=== PATIENT | female | born 1940 | race Caucasian/White ===

== ENCOUNTER → 2016-06-23 | Outpatient (REF) | payer MEDICARE, OTHER ==
[~2016-06-23] MED LIST: BENA20TA2 PO; DIFL200T PO; HYDR25TAB PO; INSUDET SC; INSUH10VL SC; MACR100C3 PO; METF500T PO; PRED10PA PO; PROP60TA14 PO
[2016-06-23 13:48] LABS: YEAST LIKE CELL URINE AUTO MODERATE
== END ==
LOC: M SMT 13:10
PROVIDERS: ATTEND Nurse Practitioner Women's Health
DX: R32 Unspecified urinary incontinence (principal)
CPT/HCPCS: 51702; 51798; 81001; 87086; G0463

== ENCOUNTER → 2016-06-29 | Outpatient (CLI) | payer MEDICARE, OTHER ==
[2016-06-29 14:04] LABS: CALCIUM LEVEL 9.5 MG/DL (8.8-10.2); CREATININE FOR GFR 1.32 MG/DL (0.55-1.02); GLOMERULAR FILTRATION RATE 41.5 (>39); POTASSIUM SERUM 4.2 MEQ/L (3.5-5.1)
== END ==
LOC: M LAB 12:53
PROVIDERS: ATTEND Nurse Practitioner Women's Health
DX: R31.29 Other microscopic hematuria (principal)
CPT/HCPCS: 36415; 80048; G0463

== ENCOUNTER → 2016-07-01 | Outpatient (CLI) | payer MEDICARE, OTHER ==
[~2016-07-01] MED LIST changes: +ISOVUE-370 76% 100ML VIAL (Q9967) As Ordered ONE
--- NOTE | 2016-07-01 09:34 | REP ---
CT study of the abdomen without IV or oral contrast: History: Microscopic hematuria. Comparison CT study December 29, 2013. Technique: The patient declined intravenous contrast. CT findings: Digital preliminary toll gate tender radiograph demonstrates a dextroconvex scoliotic curve in the lumbar spine. Bowel gas pattern is normal. The lung bases show minimal fibrotic changes but are essentially clear. No pleural effusion is seen. There is mild to moderate diffuse fatty infiltration of the liver. There is a small sliding-type hiatal hernia. Spleen is unremarkable. There are two fairly large descending and ascending duodenal diverticula which appear to be unchanged from the prior study. There is no evidence of intrarenal calculus, mass or hydronephrosis. There are phleboliths in the right gonadal vein unchanged. No bladder calculus or mass is seen. A vaginal pessary is noted in place. There is extensive diverticulosis of the sigmoid colon without CT evidence of diverticulitis. A normal appendix is seen. No uterine abnormality is seen. There is a 3.8 cm cyst in the right ovary. No abdominal wall defect is seen. No bony destructive lesion is appreciated. Impression: 1. No urinary tract calculus, hydronephrosis or mass is seen. 2. 3.8 cm cystic area right ovary. This is unchanged from the 2014 prior study. 3. Colonic and duodenal diverticulosis. 4. Fatty infiltration of the liver. 5. Small hiatal hernia. Signed by Gilbert Ngo MD 07/01/2016 10:24 A
== END ==
LOC: M RAD 08:00
PROVIDERS: ATTEND Nurse Practitioner Women's Health
DX: R31.29 Other microscopic hematuria (principal); K57.30 Diverticulosis of large intestine without perforation or abscess without bleeding; K57.10 Diverticulosis of small intestine without perforation or abscess without bleeding

== ENCOUNTER → 2016-07-22 | Outpatient (REF) | payer MEDICARE, OTHER ==
[~2016-07-22] MED LIST changes: +HYDR12.55 PO; +INDE1CAP5 PO; +INSUHUMDS SC; -ISOVUE-370 76% 100ML VIAL (Q9967) As Ordered ONE
[2016-07-22 13:26] LABS: YEAST LIKE CELL URINE AUTO LARGE
== END ==
LOC: M SMT 12:58
PROVIDERS: ATTEND Urology
DX: R31.29 Other microscopic hematuria (principal)

== ENCOUNTER → 2016-08-08 | Outpatient (CLI) | payer MEDICARE, OTHER ==
--- NOTE | 2016-08-08 09:26 | REP ---
Clinical: Hematuria. Technique: PA and lateral. Comparison: 07/07/2015. Findings: Mediastinum and cardiac silhouette are stable. Lung marin demonstrate chronic stable changes and subtle superimposed atelectasis cannot be excluded. No focal consolidation, effusion or pneumothorax. Skeletal structures demonstrate levoconvex scoliosis, osteopenia and degenerative change. Impression: Chronic-appearing stable changes. Cannot exclude trace basilar atelectasis. Signed by Chadwick Bowman MD 08/08/2016 09:17 A
[2016-08-08 19:08] LABS: CALCIUM LEVEL 9.2 MG/DL (8.8-10.2); CREATININE FOR GFR 1.13 MG/DL (0.55-1.02); GLOMERULAR FILTRATION RATE 49.7 (>39); POTASSIUM SERUM 4.4 MEQ/L (3.5-5.1)
[2016-08-08 19:14] LABS: INR 1.03
[2016-08-08 19:41] LABS: MEAN CORPUSCULAR HEMOGLOBIN 31.2 pg (27.0-33.0); MEAN CORPUSCULAR VOLUME 97.5 fl (80.0-96.0); WHITE BLOOD COUNT 9.9 K/mm3 (4.0-10.0)
[2016-08-08 20:08] LABS: CALCIUM OXALATE CRYSTALS LARGE; YEAST LIKE CELL URINE AUTO LARGE
== END ==
LOC: M SMT 08:44
PROVIDERS: ATTEND Urology
DX: R31.29 Other microscopic hematuria (principal)

== ENCOUNTER → 2016-08-11 | Outpatient (CLI) | payer MEDICARE, OTHER ==
--- NOTE | 2016-08-17 02:34 | ECWPNPC ---
PATIENT NAME: JOSEPH VOGEL : 1940 GENDER: FEMALE VISIT DATE: 08/11/2016 DISCHARGE DATE: 08/11/16925 VISIT LOCKED DATE TIME: PHYSICIAN: MICHEL RIOS RESOURCE: MICHEL RIOS REASON FOR APPOINTMENT 1. BACK PAIN HISTORY OF PRESENT ILLNESS HISTORY OF PRESENT ILLNESS: PAIN THE PATIENT DESCRIBES THE PAIN... 76 YEAR OLD FEMALE PATIENT WITH HISTORY OF CHRONIC BACK PAIN. PATIENT DESCRIBES THE PAIN ACHING, TENDER, AND THROBBING WITH A PAIN SCORE OF 4-5/10. PATIENT STATES SHE IS HAVING A PROCEDURE TO DETERMINE IF SHE HAS BLADDER CANCER AND IS NOT COMFORTABLE HAVING AN INJECTION AT THIS TIME. PATIENT IS CURRENTLY USING PERCOCET AND TYLENOL FOR PAIN MANAGEMENT AND REPORTS THE MEDICATION HELPING. SITTING, WALKING, WALKING, AND BENDING OVER INCREASES THE PAIN THE MOST IN THE PATIENT'S LOWER BACK AND RESTING, MEDICATION, AND INTERVENTIONS HELP TO MAKE THE PAIN MORE MANAGEABLE. PATIENT DENIES UNEXPLAINABLE WEIGHT LOSS, FEVER, CHILLS, NEW CHANGES ON HER URINARY OR BOWEL CONTROL. FALL RISK SCREENING: SCREENING :NO FALLS IN THE PAST YEAR CURRENT MEDICATIONS TAKING PROPRANOLOL HCL 10 MG TABLET 2 TABLET ORALLY TWICE A DAY, NOTES: 08-10-16 2100 TAKING METFORMIN HCL 500 MG TABLET EXTENDED RELEASE 24 HOUR 1 TAB ORALLY 3 TIMES A DAY, NOTES: 08-10-16 1200 TAKING HYDROCHLOROTHIAZIDE 25 25 MG TABLET 1 TAB(S) ORAL DAILY, NOTES: 08-10-16 0800 TAKING BENAZEPRIL HCL 20 MG TABLET 1 TAB(S) ORALLY DAILY, NOTES: 08-10-16 0800 TAKING LEVEMIR 52 SOLUTION 60 UNITS UNITS/SUBCUTANEOUS ONCE DAILY, NOTES: 08-10-16 08 TAKING HUMALOG SLIDING SCALE SOLUTION DIRECTED SUBCUTANEOUS , NOTES: 08-10-16 1400 TAKING TYLENOL 325 MG TABLET 2 TABLET NEEDED ORALLY EVERY 6 HRS, NOTES: NONE TAKING PREDNISONE 10 MG TABLET 1 TAB(S) ORALLY DAILY, NOTES: 08-10-16 0800 TAKING ASPIR-81 81 MG TABLET DELAYED RELEASE 1 TABLET ORALLY ONCE A DAY, NOTES: NONE 2 WEEKS TAKING BENTYL 10 MG CAPSULE ORALLY PRN, NOTES: COUPLE DAYS AGO NOT-TAKING OXYBUTYNIN CHLORIDE 5 MG TABLET 1 TABLET ORALLY TWICE A DAY DISCONTINUED DIFLUCAN 150 MG TABLET 1 TABLET ORALLY DISCONTINUED KEFLEX 750 MG CAPSULE 1 CAPSULE ORALLY DIRECTED- 1 HOUR PRIOR TO CYSTOSCOPY DISCONTINUED LIDOCAINE HCL JELLY SNF 2 % JELLY 5 ML1 APPLICATION TO AFFECTED AREA NEEDED INTRAVESICALLY TIME AT CYSTOSCOPY DISCONTINUED BACTRIM DS 800-160 TABLET 1 TABLET ORALLY TWICE A DAY DISCONTINUED DOXYCYCLINE HYCLATE 100 MG CAPSULE 1 CAPSULE ORALLY EVERY 12 HRS MEDICATION LIST REVIEWED AND RECONCILED WITH THE PATIENT PAST MEDICAL HISTORY HYPERTENSION ARTHRITIS ULCERATIVE COLITIS 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 CATARACTS ABNORMAL EKG SEEN WEB DESIGN INTERN NO SIGN OF MO DVT LOWER LEFT LEG POP USING A GELHORN # 3 SEVERE ARTHRITIS BULGING DISCS OF THE SPINE PSORIASIS ALLERGIES PENICILLIN (FOR ALLERGIES USE ONLY): ANAPHYLAXIS: ALLERGY SULFA (FOR ALLERGY USE ONLY): HIVES: ALLERGY CIPRO: SWELLING OF MOUTH: ALLERGY NUBAIN: VOMITING: ALLERGY SURGICAL HISTORY FABIOLA. CATARACT SURGERY 07/2015 FAMILY HISTORY FATHER: HEART DISEASE MOTHER: HEART DISEASE SON(S): MO AGE 41 NO KNOWN FAMILY HISTORY OF ANY UROLOGICALLY RELATED DISEASES/CANCERS. SOCIAL HISTORY GENERAL: TOBACCO USE ARE YOU A: NONSMOKER . ALCOHOL SCREENING DID YOU HAVE A DRINK CONTAINING ALCOHOL IN THE PAST YEAR?NO POINTS0 INTERPRETATIONNEGATIVE RECREATIONAL DRUG USE DRUG USE? NO. CAFFEINE CAFFEINE USE? NO . SEXUAL HX HAD SEX IN THE LAST 12 MONTHS (VAGINAL, ORAL, OR ANAL)?NO HAVE YOU EVER HAD AN STD?NO OCCUPATION: RETIRED. DIET: REGULAR. EXERCISE: NO REGULAR EXERCISE. LEARNING BARRIERS / SPECIAL NEEDS ABILITY TO UNDERSTAND VERBAL INSTRUCTIONS GOOD, ABILITY TO UNDERSTAND WRITTEN INSTRUCTIONS GOOD, KNOWLEDGE OF EDUCATIONAL NEEDS/TREATMENT PLAN GOOD. PSYCHOLOGICAL HX TREATMENT NO . PAIN CLINIC PFS, CLERGY, PUBLIC HEALTH REFERRALS PFS REFERRAL NEEDED?NO CLERGY REFERRAL NEEDED?NO PUBLIC HEALTH REFERRAL NEEDED?NO WAS THE PROVIDER NOTIFIED OF ANY PERTINENT INFO?NO PATIENT: ____. ADVANCED DIRECTIVES HEALTH CARE PROXY?NO POWER OF LOZENGE MAKER HELPER?NO HOSPITALIZATION/MAJOR DIAGNOSTIC PROCEDURE KIDNEY STONE AND SEPSIS 2013 REVIEW OF SYSTEMS CONSTITUTIONAL: ANY CHANGE IN YOUR MEDICAL CONDITION? YES . CHILLS NO . FEVER NO . INFECTION: DO YOU HAVE NEW INFECTIONS? NO . DO YOU HAVE HISTORY OF MRSA? NO . MUSCULOSKELETAL: ANY NEW PATTERNS OF PAIN OR NUMBNESS? NO . GASTROENTEROLOGY: ANY NEW CHANGE IN BOWEL CONTROL? NO . GENITOURINARY: ANY NEW CHANGE IN BLADDER CONTROL? NO . IS THERE A CHANCE YOU COULD BE ? NO . HEMATOLOGY/LYMPH: DO YOU TAKE ANY BLOOD THINNERS? (FOR EXAMPLE- COUMADIN, PLAVIX, AGGRENOX, PLATEL, PRADAXA, OR XARELTO) NO . WHEN WAS YOUR LAST DOSE? DATE: TIME: . NEUROLOGY: HAVE YOU FALLEN IN THE PAST 6 MONTHS? NO . ANY NEW EXTREMITY NUMBNESS OR WEAKNESS? NO . CARDIOLOGY: DO YOU HAVE A PACEMAKER OR DEFIBRILLATOR? NO . RESPIRATORY: HAVE YOU BEEN SICK IN THE PAST WEEK? NO . FEVER NO . FLU LIKE SYMPTOMS? NO . COUGH NO . INTEGUMENTARY: DO YOU HAVE ANY RASHES OR OPEN SORES? NO . ALLERGIC/IMMUNO: ARE YOU ALLERGIC TO SHELLFISH OR IV DYE? NO . ANY NEW ALLERGIES? NO . PSYCHIATRIC: DO YOU HAVE THOUGHTS OF HURTING YOURSELF OR SOMEONE ELSE? NO . ARE YOU ABUSED, NEGLECTED, OR IN AN UNSAFE ENVIRONMENT? NO . ENDOCRINOLOGY: ARE YOU DIABETIC? YES . OTHER: DO YOU NEED ANY PRESCRIPTIONS? NO . IF YES, PLEASE LIST: ____ . ANY NEW PROBLEMS WITH YOUR MEDICATIONS? NO . WHEN DID YOU LAST EAT? ____2030 08/04/16 . WHEN DID YOU LAST DRINK? ____08/11/15 . WHAT DID YOU LAST DRINK? ____WATER . NAME OF PERSON DRIVING YOU HOME? ____DONALD . DO YOU HAVE ANY OTHER QUESTIONS OR CONCERNS YES . REVIEWED BY: PROVIDER: MICHEL RIOS MD . VITAL SIGNS WT 141 LBS, HT 61 IN, BMI 26.64 INDEX, BP 169/88 MM HG, HR 78 /MIN, RR 16 /MIN, TEMP 97.3 F, OXYGEN SAT % 96, NA INITIALS TL 0858, REVIEWED BY: VD. EXAMINATION : PATIENT IS ALERT O X 3 AND COOPERATIVE. TENDERNESS IN THE LOWER BACK AND PARASPINAL MUSCLE GROUP. MRI DONE ON 10/20/15 SHOWS DISC BULGES FROM L2-L3 THROUGH L5-S1, CANAL STENOSIS, AND FACET HYPERTROPHY. ASSESSMENTS SPONDYLOSIS WITHOUT MYELOPATHY OR RADICULOPATHY, LUMBAR REGION - M47.816 (PRIMARY) SPONDYLOSIS WITHOUT MYELOPATHY OR RADICULOPATHY, LUMBOSACRAL REGION - M47.817 TREATMENT SPONDYLOSIS WITHOUT MYELOPATHY OR RADICULOPATHY, LUMBAR REGION NOTES: WE DISCUSSED SEVERAL ISSUES WITH MRS. VOGEL'S PAIN MANAGEMENT CASE. PATIENT WILL CONTINUE WITH THE SAME MEDICATION REGIME BEFORE. PATIENT DENIES ABUSE OF ANY MEDICATION, DENIES USE OF ILLEGAL SUBSTANCES, AND STATES THAT SHE IS ONLY USING THE MEDICATION FOR PAIN MANAGEMENT. WE WILL HOLD OFF ON INTERVENTIONS AT THIS TIME. PATIENT WILL RETURN TO THE CLINIC HER POST OPERATIVE APPOINTMENT TO SEE IF SHE IS WELL ENOUGH FOR INJECTIONS. INSTRUCTIONS WERE GIVEN, QUESTIONS WERE ANSWERED, PATIENT REPORTS UNDERSTANDING AND AGREES WITH THE PLAN. I, RASHID WALSH, DOCUMENTED THE ABOVE INFORMATION ACTING A SCRIBE FOR DR. RIOS. I HAVE REVIEWED THE ABOVE DOCUMENT, WRITTEN BY RASHID VILLANUEVA AND I VERIFY THAT IT IS ACCURATE. PROCEDURE CODES FA211 ESTABILISHED PATIENT [facility] FACILITY CHARGE G8427 DOC MEDS VERIFIED W/PT OR RE G8730 PAIN ASSESS POS TOOL F/U PLAN DOC DISPOSITION & COMMUNICATION FOLLOW UP 4 WEEKS ELECTRONICALLY SIGNED BY MICHEL RIOS MD ON 08/15/2016 AT 06:15 PM EDT DISCLAIMER : THIS IS A VISIT SUMMARY EXTRACTED FROM THE [employer] CHART. IT IS NOT A COPY OF THE [employer] PROGRESS NOTE. DENY
== END ==
LOC: M PAIN 08:40
PROVIDERS: ATTEND Anesthesiology
DX: Z09 Encounter for follow-up examination after completed treatment for conditions other than malignant neoplasm (principal); G89.29 Other chronic pain; M47.816 Spondylosis without myelopathy or radiculopathy, lumbar region; M47.817 Spondylosis without myelopathy or radiculopathy, lumbosacral region; I10 Essential (primary) hypertension; M19.90 Unspecified osteoarthritis, unspecified site; L40.9 Psoriasis, unspecified; E11.9 Type 2 diabetes mellitus without complications; R32 Unspecified urinary incontinence; Z79.899 Other long term (current) drug therapy; Z79.84 Long term (current) use of oral hypoglycemic drugs; Z79.4 Long term (current) use of insulin; Z79.82 Long term (current) use of aspirin; Z79.52 Long term (current) use of systemic steroids; Z88.0 Allergy status to penicillin; Z88.1 Allergy status to other antibiotic agents; Z88.2 Allergy status to sulfonamides; Z88.5 Allergy status to narcotic agent

== ENCOUNTER → 2016-08-24 | Day surgery (SDC) | payer MEDICARE, OTHER ==
[~2016-08-24] VITALS: Ht 154.9 cm; Wt 57.2 kg
[~2016-08-24] MED LIST changes: +CEPHALEXIN 500 MG CAP PO SCH; +GENTAMICIN 100 MG in APPROPRIATE DILUENT 1 EA IV ONE; +KEFL500C7 PO; +LIDOCAINE 2% 5ML JELLY UROJET As Ordered ONE; +LIDOCAINE 2% INJ 100 MG/5 ML SDV (FOR ANES.) As Ordered ONE; +LR 1,000 ML IV SCH; +MIDAZOLAM INJ 2 MG/2 ML VIAL (J2250) As Ordered ONE; +PROPOFOL 200 MG/20 ML VIAL As Ordered ONE; +ROCURONIUM BROMIDE 50 MG/5 ML VIAL As Ordered ONE; +TYLE650T35 PO; +VANCOMYCIN HCL 1,000 MG, VIAL MATE ADAPTER 1 EACH in D5W 250 ML IV ONE; +fentaNYL 100 MCG/2 ML INJECTION (J3010) As Ordered ONE; +traMADol 50 MG TAB As Ordered ONE; +traMADol 50 MG TAB PO PRN
[2016-08-24 10:00] VITALS: BP 131/67
--- NOTE | 2016-08-24 14:42 | RO ---
DATE OF PROCEDURE: 08/24/2016 PREPROCEDURE DIAGNOSIS: Bladder neoplasm. POSTPROCEDURE DIAGNOSIS: Flat lesions, multiple, in the bladder, possible bladder neoplasm. FINDINGS: Multiple flat lesions in the bladder. SURGERY PERFORMED: Cystoscopy, plus examination under anesthesia, plus random bladder biopsies, plus fulguration of bleeders. SURGEON: Ronald Peters MD DIRECTOR [place]: Ha Pena, PGY-3 resident ANESTHESIA: General. COMPLICATIONS: None. ESTIMATED BLOOD LOSS: N/A. HISTORY OF PRESENT ILLNESS: This is a 76-year-old female patient that has microscopic hematuria. We did a flexible cystoscopy that showed multiple erythematous flat lesions in the bladder. For this reason, she has consented for a cystoscopy, plus random bladder biopsies, plus examination under anesthesia. DESCRIPTION OF PROCEDURE: With the patient in general anesthesia in supine, modified low lithotomy position, after prepping and draping the area of concern, which included the entire genitalia and abdomen, we started by introducing the cystoscope, #21-Jordanian in diameter with a 30-degree lens under videoscopic guidance. The urethra and bladder neck were totally normal. The bladder had multiple erythematous flat lesions. Both ureteral orifices were excreting clear liquid. There were no foreign objects and no stones. We then proceeded to grab endoscopic forceps and did a random bladder biopsy at the dome, left lateral wall, right lateral wall, and posterior wall. We then proceeded to actually send this for permanent pathology analysis. We grabbed the endoscopic Bugbee and under sterile water we fulgurated each bladder biopsy site. We then proceeded to actually empty the bladder and introduce a Hdz catheter, #20-Jordanian, three-way, plugged the third way and inflated the balloon to 10 mL and placed it to gravity. PLAN: The patient will go home today with antibiotic, pain medication. Followup in about 4 to 5 days at [facility] for a voiding trial. DENY
== END | disposition home or self-care (01) ==
LOC: M SDC 05:53
PROVIDERS: ATTEND Urology
DX: N32.9 Bladder disorder, unspecified (principal); R31.29 Other microscopic hematuria; I10 Essential (primary) hypertension; E11.9 Type 2 diabetes mellitus without complications; I51.9 Heart disease, unspecified; R32 Unspecified urinary incontinence; Z87.828 Personal history of other (healed) physical injury and trauma; Z87.442 Personal history of urinary calculi; Z87.440 Personal history of urinary (tract) infections; Z88.1 Allergy status to other antibiotic agents; Z88.8 Allergy status to other drugs, medicaments and biological substances; Z88.0 Allergy status to penicillin; Z88.2 Allergy status to sulfonamides; Z79.899 Other long term (current) drug therapy; Z79.84 Long term (current) use of oral hypoglycemic drugs; Z79.4 Long term (current) use of insulin; Z79.52 Long term (current) use of systemic steroids
CPT/HCPCS: 36415; 52204; 86850; 86900; 86901; 88305; J1580; J2250; J3010; J3370

== ENCOUNTER → 2016-09-14 | Outpatient (CLI) | payer MEDICARE, OTHER ==
[~2016-09-14] MED LIST changes: -CEPHALEXIN 500 MG CAP PO SCH; -GENTAMICIN 100 MG in APPROPRIATE DILUENT 1 EA IV ONE; -LIDOCAINE 2% 5ML JELLY UROJET As Ordered ONE; -LIDOCAINE 2% INJ 100 MG/5 ML SDV (FOR ANES.) As Ordered ONE; -LR 1,000 ML IV SCH; -MIDAZOLAM INJ 2 MG/2 ML VIAL (J2250) As Ordered ONE; -PROPOFOL 200 MG/20 ML VIAL As Ordered ONE; -ROCURONIUM BROMIDE 50 MG/5 ML VIAL As Ordered ONE; -VANCOMYCIN HCL 1,000 MG, VIAL MATE ADAPTER 1 EACH in D5W 250 ML IV ONE; -fentaNYL 100 MCG/2 ML INJECTION (J3010) As Ordered ONE; -traMADol 50 MG TAB As Ordered ONE; -traMADol 50 MG TAB PO PRN
== END ==
LOC: M PAIN 14:40
PROVIDERS: ATTEND Anesthesiology
DX: Z53.29 Procedure and treatment not carried out because of patient's decision for other reasons (principal)

== ENCOUNTER → 2016-09-20 | Outpatient (REF) | payer MEDICARE, OTHER | LOC: M SMT 12:47 | PROVIDERS: ATTEND Urology | DX: R30.0 Dysuria (principal); R31.29 Other microscopic hematuria; N81.9 Female genital prolapse, unspecified | CPT/HCPCS: 87086; G0463 ==

== ENCOUNTER → 2016-09-21 | Outpatient (CLI) | payer MEDICARE, OTHER ==
--- NOTE | 2016-10-02 23:36 | ECWPNPC ---
PATIENT NAME: JOSEPH VOGEL : 1940 GENDER: FEMALE VISIT DATE: 09/21/2016 DISCHARGE DATE: 09/21/16 1004 VISIT LOCKED DATE TIME: PHYSICIAN: MICHEL RIOS RESOURCE: MICHEL RIOS REASON FOR APPOINTMENT 1. LOW BACK PAIN HISTORY OF PRESENT ILLNESS HISTORY OF PRESENT ILLNESS: PAIN THE PATIENT DESCRIBES THE PAIN... 76 YEAR OLD FEMALE PATIENT WITH HISTORY OF CHRONIC BACK PAIN. PATIENT DESCRIBES THE PAIN ACHING, TENDER, AND THROBBING WITH A PAIN SCORE OF 4-5/10. PATIENT STATES THAT SHE IS ABLE TO MOVE FORWARD WITH INJECTIONS AT THIS TIME. PATIENT IS CURRENTLY USING PERCOCET AND TYLENOL FOR PAIN MANAGEMENT AND REPORTS THE MEDICATION HELPING. SITTING, WALKING, WALKING, AND BENDING OVER INCREASES THE PAIN THE MOST IN THE PATIENT'S LOWER BACK AND RESTING, MEDICATION, AND INTERVENTIONS HELP TO MAKE THE PAIN MORE MANAGEABLE. PATIENT DENIES UNEXPLAINABLE WEIGHT LOSS, FEVER, CHILLS, NEW CHANGES ON HER URINARY OR BOWEL CONTROL. FALL RISK SCREENING: SCREENING :NO FALLS IN THE PAST YEAR CURRENT MEDICATIONS TAKING PROPRANOLOL HCL 10 MG TABLET 2 TABLET ORALLY TWICE A DAY TAKING METFORMIN HCL 500 MG TABLET EXTENDED RELEASE 24 HOUR 1 TAB ORALLY 3 TIMES A DAY TAKING HYDROCHLOROTHIAZIDE 25 25 MG TABLET 1 TAB(S) ORAL DAILY TAKING BENAZEPRIL HCL 20 MG TABLET 1 TAB(S) ORALLY DAILY TAKING LEVEMIR 52 SOLUTION 60 UNITS UNITS/SUBCUTANEOUS ONCE DAILY TAKING HUMALOG SLIDING SCALE SOLUTION DIRECTED SUBCUTANEOUS TAKING TYLENOL 325 MG TABLET 2 TABLET NEEDED ORALLY EVERY 6 HRS, NOTES: NONE TAKING PREDNISONE 10 MG TABLET 1 TAB(S) ORALLY DAILY TAKING ASPIR-81 81 MG TABLET DELAYED RELEASE 1 TABLET ORALLY ONCE A DAY TAKING BENTYL 10 MG CAPSULE ORALLY PRN NOT-TAKING OXYBUTYNIN CHLORIDE 5 MG TABLET 1 TABLET ORALLY TWICE A DAY MEDICATION LIST REVIEWED AND RECONCILED WITH THE PATIENT PAST MEDICAL HISTORY HYPERTENSION ARTHRITIS ULCERATIVE COLITIS 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 CATARACTS ABNORMAL EKG SEEN KNITTER HAND NO SIGN OF PR DVT LOWER LEFT LEG POP USING A GELHORN # 3 SEVERE ARTHRITIS BULGING DISCS OF THE SPINE PSORIASIS ALLERGIES PENICILLIN (FOR ALLERGIES USE ONLY): ANAPHYLAXIS: ALLERGY SULFA (FOR ALLERGY USE ONLY): HIVES: ALLERGY CIPRO: SWELLING OF MOUTH: ALLERGY NUBAIN: VOMITING: ALLERGY SURGICAL HISTORY FABIOLA. CATARACT SURGERY 07/2015 TRANSURETHRAL RESECTION OF BLADDER 08/2015 FAMILY HISTORY FATHER: HEART DISEASE MOTHER: HEART DISEASE SON(S): PR AGE 41 NO KNOWN FAMILY HISTORY OF ANY UROLOGICALLY RELATED DISEASES/CANCERS. SOCIAL HISTORY GENERAL: TOBACCO USE ARE YOU A: NONSMOKER . ALCOHOL SCREENING DID YOU HAVE A DRINK CONTAINING ALCOHOL IN THE PAST YEAR?NO POINTS0 INTERPRETATIONNEGATIVE RECREATIONAL DRUG USE DRUG USE? NO. CAFFEINE CAFFEINE USE? NO . SEXUAL HX HAD SEX IN THE LAST 12 MONTHS (VAGINAL, ORAL, OR ANAL)?NO HAVE YOU EVER HAD AN STD?NO OCCUPATION: RETIRED. DIET: REGULAR. EXERCISE: NO REGULAR EXERCISE. LEARNING BARRIERS / SPECIAL NEEDS BARRIERS TO LEARNING?NO HEARING IMPAIRED?NO VISION IMPAIRED?YES COGNITIVELY IMPAIRED?NO :CORRECTIVE LENSES READINESS TO LEARN?YES LEARNING PREFERENCES?NO LEARNING CAPABILITIES PRESENT?YES EMOTIONAL BARRIERS?NO SPECIAL DEVICES?NO SAMPLE CHECKER NEEDED?NO PSYCHOLOGICAL HX TREATMENT NO . PAIN CLINIC PFS, CLERGY, PUBLIC HEALTH REFERRALS PFS REFERRAL NEEDED?NO CLERGY REFERRAL NEEDED?NO PUBLIC HEALTH REFERRAL NEEDED?NO WAS THE PROVIDER NOTIFIED OF ANY PERTINENT INFO?YES REVIEWED BY: MAIN. PATIENT: ____. ADVANCED DIRECTIVES HEALTH CARE PROXY?NO POWER OF INKER MACHINE?NO HOSPITALIZATION/MAJOR DIAGNOSTIC PROCEDURE KIDNEY STONE AND SEPSIS 2014 REVIEW OF SYSTEMS CONSTITUTIONAL: ANY CHANGE IN YOUR MEDICAL CONDITION? NO . CHILLS NO . FEVER NO . INFECTION: DO YOU HAVE NEW INFECTIONS? NO . DO YOU HAVE HISTORY OF MRSA? NO . MUSCULOSKELETAL: ANY NEW PATTERNS OF PAIN OR NUMBNESS? NO . GASTROENTEROLOGY: ANY NEW CHANGE IN BOWEL CONTROL? NO . GENITOURINARY: ANY NEW CHANGE IN BLADDER CONTROL? NO . IS THERE A CHANCE YOU COULD BE ? NO . HEMATOLOGY/LYMPH: DO YOU TAKE ANY BLOOD THINNERS? (FOR EXAMPLE- COUMADIN, PLAVIX, AGGRENOX, PLATEL, PRADAXA, OR XARELTO) NO . WHEN WAS YOUR LAST DOSE? DATE: TIME: . NEUROLOGY: HAVE YOU FALLEN IN THE PAST 6 MONTHS? NO . ANY NEW EXTREMITY NUMBNESS OR WEAKNESS? NO . CARDIOLOGY: DO YOU HAVE A PACEMAKER OR DEFIBRILLATOR? NO . RESPIRATORY: HAVE YOU BEEN SICK IN THE PAST WEEK? NO . FEVER NO . FLU LIKE SYMPTOMS? NO . COUGH NO . INTEGUMENTARY: DO YOU HAVE ANY RASHES OR OPEN SORES? NO . ALLERGIC/IMMUNO: ARE YOU ALLERGIC TO SHELLFISH OR IV DYE? NO . ANY NEW ALLERGIES? NO . PSYCHIATRIC: DO YOU HAVE THOUGHTS OF HURTING YOURSELF OR SOMEONE ELSE? NO . ARE YOU ABUSED, NEGLECTED, OR IN AN UNSAFE ENVIRONMENT? NO . ENDOCRINOLOGY: ARE YOU DIABETIC? NO . OTHER: DO YOU NEED ANY PRESCRIPTIONS? NO . IF YES, PLEASE LIST: ____ . ANY NEW PROBLEMS WITH YOUR MEDICATIONS? NO . WHEN DID YOU LAST EAT? 09/20 10PM . WHEN DID YOU LAST DRINK? 09/20 10PM . WHAT DID YOU LAST DRINK? WATER . NAME OF PERSON DRIVING YOU HOME? ___SPOUSE MADELINE . DO YOU HAVE ANY OTHER QUESTIONS OR CONCERNS NO . REVIEWED BY: PROVIDER: MICHEL RIOS MD . VITAL SIGNS WT 139 LBS, HT 61 IN, BMI 26.26 INDEX, BP 142/72 MM HG, HR 75 /MIN, RR 18 /MIN, TEMP 97.7 F, OXYGEN SAT % 96%, REVIEWED BY: CS (DONE AT 0852). EXAMINATION : PATIENT IS ALERT O X 3 AND COOPERATIVE. TENDERNESS IN THE LOWER BACK AND PARASPINAL MUSCLE GROUP. LIMPING FROM LEFT LEG. LEFT LEG IS WEAKER THEN THE RIGHT AT EXTENSION AND FLEXION. MRI DONE ON 10/20/15 SHOWS DISC BULGES FROM L2-L3 THROUGH L5-S1, CANAL STENOSIS, AND FACET HYPERTROPHY. ASSESSMENTS INTERVERTEBRAL DISC DISORDERS WITH RADICULOPATHY, LUMBAR REGION - M51.16 (PRIMARY) INTERVERTEBRAL DISC DISORDERS WITH RADICULOPATHY, LUMBOSACRAL REGION - M51.17 TREATMENT INTERVERTEBRAL DISC DISORDERS WITH RADICULOPATHY, LUMBAR REGION NOTES: WE DISCUSSED SEVERAL ISSUES WITH MRS. VOGEL'S PAIN MANAGEMENT CASE. AT THIS TIME THE PATIENT WILL CONTINUE WITH THE SAME MEDICATION REGIME BEFORE. PATIENT DENIES ABUSE OF ANY MEDICATION, DENIES USE OF ILLEGAL SUBSTANCES AND STATES THAT SHE IS ONLY USING THE MEDICATION FOR PAIN MANAGEMENT. WE DISCUSSED MOVING FORWARD WITH THE LUMBAR EPIDURAL DUE TO THE PATIENT HAVING HER PROCEDURE WITH THE UROLOGIST. WE DISCUSSED THE RISKS, BENEFITS, AND ALTERNATIVES AND THE PATIENT WOULD LIKE TO MOVE FORWARD WITH A LUMBAR EPIDURAL. INSTRUCTIONS WERE GIVEN, QUESTIONS WERE ANSWERED, PATIENT REPORTS UNDERSTANDING AND AGREES WITH THE PLAN. I, RASHID WALSH, DOCUMENTED THE ABOVE INFORMATION ACTING A SCRIBE FOR DR. RIOS. I HAVE REVIEWED THE ABOVE DOCUMENT, WRITTEN BY RASHID SHAMPINE SCRIBE AND I VERIFY THAT IT IS ACCURATE. PROCEDURE CODES FA211 ESTABILISHED PATIENT [facility] FACILITY CHARGE G8427 DOC MEDS VERIFIED W/PT OR RE G3730 PAIN ASSESS POS TOOL F/U PLAN DOC DISPOSITION & COMMUNICATION FOLLOW UP LESI AFTER APPROVAL ELECTRONICALLY SIGNED BY MICHEL RIOS MD ON 10/02/2016 AT 12:27 PM EDT DISCLAIMER : THIS IS A VISIT SUMMARY EXTRACTED FROM THE [employer] CHART. IT IS NOT A COPY OF THE [employer] PROGRESS NOTE. DENY
== END | disposition home or self-care (01) ==
LOC: M PAIN 08:40
PROVIDERS: ATTEND Anesthesiology
DX: G89.29 Other chronic pain (principal); M51.16 Intervertebral disc disorders with radiculopathy, lumbar region; M51.17 Intervertebral disc disorders with radiculopathy, lumbosacral region; I10 Essential (primary) hypertension; E11.9 Type 2 diabetes mellitus without complications; M19.90 Unspecified osteoarthritis, unspecified site; R32 Unspecified urinary incontinence; L40.9 Psoriasis, unspecified; Z79.899 Other long term (current) drug therapy; Z79.84 Long term (current) use of oral hypoglycemic drugs; Z79.4 Long term (current) use of insulin; Z79.82 Long term (current) use of aspirin; Z88.0 Allergy status to penicillin; Z88.1 Allergy status to other antibiotic agents; Z88.2 Allergy status to sulfonamides; Z88.8 Allergy status to other drugs, medicaments and biological substances

== ENCOUNTER → 2016-10-04 | Outpatient (CLI) | payer MEDICARE, OTHER ==
[~2016-10-04] MED LIST changes: +ISOVUE-M 300 61% 15ML VIAL (Q9967) As Ordered ONE; +LIDOCAINE 1% SDV INJ 30 ML VIAL As Ordered ONE; +methylPREDNISolone SUSP 40 MG/ML (DEPO-medrol) VIAL (J1030) As Ordered ONE
--- NOTE | 2016-10-04 13:08 | REP ---
Partial lumbar spine series: Three views. History: Injection procedure for pain. 15 seconds of fluoroscopy time is reported. Findings: A sequence of three fluoroscopically obtained last image hold spot radiographs of the lumbar spine document needle position and contrast injection associated with lumbar epidural injection procedure. Signed by Gilbert Ngo MD 10/04/2016 01:11 P
--- NOTE | 2016-10-13 23:55 | ECWPNPC ---
PATIENT NAME: JOSEPH VOGEL : 1940 GENDER: FEMALE VISIT DATE: 10/04/2016 DISCHARGE DATE: 10/04/16 1111 VISIT LOCKED DATE TIME: PHYSICIAN: MICHEL RIOS RESOURCE: MICHEL RIOS REASON FOR APPOINTMENT 1. LESI HISTORY OF PRESENT ILLNESS HISTORY OF PRESENT ILLNESS: PAIN THE PATIENT DESCRIBES THE PAIN... FALL RISK SCREENING: SCREENING :NO FALLS IN THE PAST YEAR CURRENT MEDICATIONS TAKING PROPRANOLOL HCL 10 MG TABLET 2 TABLET ORALLY TWICE A DAY, NOTES: 10/03/14 2100 TAKING METFORMIN HCL 500 MG TABLET EXTENDED RELEASE 24 HOUR 1 TAB ORALLY 3 TIMES A DAY, NOTES: 10/03/16 1800 TAKING HYDROCHLOROTHIAZIDE 25 25 MG TABLET 1 TAB(S) ORAL DAILY, NOTES: 10/03/16 0800 TAKING BENAZEPRIL HCL 20 MG TABLET 1 TAB(S) ORALLY DAILY, NOTES: 10/03/16 0800 TAKING LEVEMIR 52 SOLUTION 60 UNITS UNITS/SUBCUTANEOUS ONCE DAILY, NOTES: 10/03/16 1400 TAKING HUMALOG SLIDING SCALE SOLUTION DIRECTED SUBCUTANEOUS , NOTES: 10/03/16 19 UNITS 1730 TAKING TYLENOL 325 MG TABLET 2 TABLET NEEDED ORALLY EVERY 6 HRS, NOTES: NONE RECENT TAKING PREDNISONE 10 MG TABLET 1 TAB(S) ORALLY DAILY, NOTES: 10/03/16 0800 TAKING ASPIR-81 81 MG TABLET DELAYED RELEASE 1 TABLET ORALLY ONCE A DAY, NOTES: 09/28/16 TAKING BENTYL 10 MG CAPSULE ORALLY PRN, NOTES: NONE RECENT TAKING CLOTRIMAZOLE-BETAMETHASONE 1-0.05 % CREAM 1 APPLICATION TO AFFECTED AREA EXTERNALLY TO GROIN TWICE A DAY, NOTES: 10/03/16 2200 NOT-TAKING OXYBUTYNIN CHLORIDE 5 MG TABLET 1 TABLET ORALLY TWICE A DAY MEDICATION LIST REVIEWED AND RECONCILED WITH THE PATIENT PAST MEDICAL HISTORY HYPERTENSION ARTHRITIS ULCERATIVE COLITIS 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 NO . CHILLS NO . FEVER NO . INFECTION: DO YOU HAVE NEW INFECTIONS? NO . DO YOU HAVE HISTORY OF MRSA? NO . MUSCULOSKELETAL: ANY NEW PATTERNS OF PAIN OR NUMBNESS? NO . GASTROENTEROLOGY: ANY NEW CHANGE IN BOWEL CONTROL? NO . GENITOURINARY: ANY NEW CHANGE IN BLADDER CONTROL? NO . IS THERE A CHANCE YOU COULD BE ? NO . HEMATOLOGY/LYMPH: DO YOU TAKE ANY BLOOD THINNERS? (FOR EXAMPLE- COUMADIN, PLAVIX, AGGRENOX, PLATEL, PRADAXA, OR XARELTO) NO . WHEN WAS YOUR LAST DOSE? DATE: TIME: . NEUROLOGY: HAVE YOU FALLEN IN THE PAST 6 MONTHS? YES, WENT BACKWARDS IN A CHAIR IN MAY., NO INJURY . ANY NEW EXTREMITY NUMBNESS OR WEAKNESS? NO . CARDIOLOGY: DO YOU HAVE A PACEMAKER OR DEFIBRILLATOR? NO . RESPIRATORY: HAVE YOU BEEN SICK IN THE PAST WEEK? NO . FEVER NO . FLU LIKE SYMPTOMS? NO . COUGH NO . INTEGUMENTARY: DO YOU HAVE ANY RASHES OR OPEN SORES? NO . ALLERGIC/IMMUNO: ARE YOU ALLERGIC TO SHELLFISH OR IV DYE? NO . ANY NEW ALLERGIES? NO . PSYCHIATRIC: DO YOU HAVE THOUGHTS OF HURTING YOURSELF OR SOMEONE ELSE? NO . ARE YOU ABUSED, NEGLECTED, OR IN AN UNSAFE ENVIRONMENT? NO . ENDOCRINOLOGY: ARE YOU DIABETIC? YES, FSBS 169 @ 0730 TODAY . OTHER: DO YOU NEED ANY PRESCRIPTIONS? NO . IF YES, PLEASE LIST: ____ . ANY NEW PROBLEMS WITH YOUR MEDICATIONS? NO . WHEN DID YOU LAST EAT? 10/03/16 1800 . WHEN DID YOU LAST DRINK? 10/03/16 1800 . WHAT DID YOU LAST DRINK? WATER . NAME OF PERSON DRIVING YOU HOME? ____ . DO YOU HAVE ANY OTHER QUESTIONS OR CONCERNS NO . REVIEWED BY: PROVIDER: . VITAL SIGNS WT 141.0 LBS, HT 61 IN, BMI 26.64 INDEX, BP 163/84 MM HG, HR 71 /MIN, RR 16 /MIN, TEMP 97.1 F, OXYGEN SAT % 97%, NA INITIALS TL 0909, REVIEWED BY: AD. ASSESSMENTS INTERVERTEBRAL DISC DISORDERS WITH RADICULOPATHY, LUMBAR REGION - M51.16 (PRIMARY) PROCEDURES PRE PROCEDURE DIAGNOSIS LUMBAR RADICULOPATHY, LUMBAR DISC DISORDER WITH RADICULOPATHY POST PROCEDURE DIAGNOSIS LUMBAR RADICULOPATHY , LUMBAR DISC DISORDER WITH RADICULOPATHY PROCEDURE LUMBAR EPIDURAL STEROID INJECTION UNDER FLUOROSCOPIC GUIDANCE SURGEON DR. MICHEL RIOS SHANK CARRIER NONE ANESTHESIA LOCAL PRE PROCEDURE NOTE THE PATIENT HAS A HISTORY OF CHRONIC LOW BACK PAIN. I EVALUATE THE PATIENT AND REVIEWED THE CHART. I WENT OVER THE RISKS, ALTERNATIVES, AND BENEFITS ASSOCIATED WITH THIS PROCEDURE. THE PATIENT WOULD LIKE TO PROCEED AND GIVE CONSENT TO PERFORMED THE PROCEDURE. THE PATIENT DENIES UNEXPLAINABLE WEIGHT LOSS, FEVER, CHILLS, OR NEW CHANGES IN URINARY OR BOWEL CONTROL. DESCRIPTION OF PROCEDURE THE PATIENT WAS BROUGHT TO THE PROCEDURE ROOM AND PLACED IN THE PRONE POSITION. THE LUMBOSACRAL AREA WAS CLEANED WITH BETADINE SOLUTION AND DRAPED ASEPTICALLY. THE PROCEDURE WAS DONE UNDER STERILE CONDITIONS. I CHECKED LATERALITY AND THE LEVEL WHERE THE PROCEDURE WAS GOING TO BE PERFORMED WITH THE PATIENT AND THE SUPPORTING STAFF AT THE MOMENT OF THE TIME OUT IN THE PROCEDURE ROOM. UNDER FLUOROSCOPIC GUIDANCE, THE TARGET POINT WAS SELECTED AT THE INTERLAMINAR LEVEL OF L3-L4. LIDOCAINE WAS USED TO NUMB THE SKIN AND THE SUBCUTANEOUS TISSUE BELOW IT. EPIDURAL TUOHY NEEDLE, 17-GAUGE, WAS ADVANCED UNDER FLUOROSCOPIC GUIDANCE AND FOLLOWING PATIENT FEEDBACK UNTIL THE EPIDURAL SPACE WAS REACHED, 7 CM DEEP INTO THE SKIN BY THE LOSS OF RESISTANCE TECHNIQUE. ISOVUE M DYE 30%, 0.25 ML, WAS INJECTED SHOWING ADEQUATE SPREAD OF THE DYE. THEN, A SOLUTION OF 3 ML OF NORMAL SALINE WITH DEPO-MEDROL 60 MG WAS INJECTED SLOWLY FOLLOWING PATIENT FEEDBACK. THERE WAS NO EVIDENCE OF BLOOD, PARESTHESIA OR CEREBROSPINAL FLUID DURING THE PROCEDURE. THE PATIENT WAS SENT TO THE RECOVERY ROOM. THE PATIENT WAS MOVING THE EXTREMITIES AND DOING WELL. THERE WAS NO COMPLICATION DURING THE PROCEDURE. FLUOROSCOPY TIME WAS 15 SECONDS. POST PROCEDURE NOTE THE PATIENT WILL BE SEEN IN A FOLLOW UP IN THE NEXT FEW WEEKS. INSTRUCTIONS WERE GIVEN, QUESTIONS WERE ANSWERED, AND THE PATIENT EXPRESSED UNDERSTANDING AND AGREES WITH THE PLAN. I, MARIUSZ HBOSON, DOCUMENTED THE ABOVE INFORMATION ACTING A SCRIBE FOR DR. RIOS. I HAVE REVIEWED THE ABOVE DOCUMENT, WRITTEN BY MARIUSZ HOBSON SCRIBKimi AND I VERIFY THAT IT IS ACCURATE DIAGNOSTIC IMAGING [facility] FLUORO GUIDE SPINE INJECTION (PAIN)[id number] PROCEDURE CODES 6045F RADXPS IN END [id number] PXD [id number] LUMBAR/SACRAL W/ IMAGING DISPOSITION & COMMUNICATION FOLLOW UP 3 WEEKS ELECTRONICALLY SIGNED BY MICHEL RIOS MD ON 10/13/2016 AT 07:58 PM EDT DISCLAIMER : THIS IS A VISIT SUMMARY EXTRACTED FROM THE [employer] CHART. IT IS NOT A COPY OF THE [employer] PROGRESS NOTE. DENY
== END | disposition home or self-care (01) ==
LOC: M PAIN 09:00
PROVIDERS: ATTEND Anesthesiology
DX: G89.29 Other chronic pain (principal); M51.16 Intervertebral disc disorders with radiculopathy, lumbar region; I10 Essential (primary) hypertension; M19.90 Unspecified osteoarthritis, unspecified site; E11.9 Type 2 diabetes mellitus without complications; L40.9 Psoriasis, unspecified; R00.8 Other abnormalities of heart beat; Z86.718 Personal history of other venous thrombosis and embolism; Z79.899 Other long term (current) drug therapy; Z79.84 Long term (current) use of oral hypoglycemic drugs; Z79.4 Long term (current) use of insulin; Z79.82 Long term (current) use of aspirin; Z88.0 Allergy status to penicillin; Z88.1 Allergy status to other antibiotic agents; Z88.2 Allergy status to sulfonamides; Z88.5 Allergy status to narcotic agent; Z91.013 Allergy to seafood
CPT/HCPCS: 62323; J1030; Q9967

== ENCOUNTER → 2016-11-03 | Outpatient (CLI) | payer MEDICARE, OTHER ==
[~2016-11-03] MED LIST changes: -ISOVUE-M 300 61% 15ML VIAL (Q9967) As Ordered ONE; -LIDOCAINE 1% SDV INJ 30 ML VIAL As Ordered ONE; -methylPREDNISolone SUSP 40 MG/ML (DEPO-medrol) VIAL (J1030) As Ordered ONE
== END | disposition home or self-care (01) ==
LOC: M PAIN 08:40
PROVIDERS: ATTEND Anesthesiology
DX: G89.29 Other chronic pain (principal); M47.816 Spondylosis without myelopathy or radiculopathy, lumbar region; M47.817 Spondylosis without myelopathy or radiculopathy, lumbosacral region; I10 Essential (primary) hypertension; M19.90 Unspecified osteoarthritis, unspecified site; E11.9 Type 2 diabetes mellitus without complications; Z87.442 Personal history of urinary calculi; R32 Unspecified urinary incontinence; M51.16 Intervertebral disc disorders with radiculopathy, lumbar region; L40.9 Psoriasis, unspecified; R00.8 Other abnormalities of heart beat; Z86.718 Personal history of other venous thrombosis and embolism; Z79.899 Other long term (current) drug therapy; Z79.84 Long term (current) use of oral hypoglycemic drugs; Z79.4 Long term (current) use of insulin; Z79.82 Long term (current) use of aspirin; Z88.0 Allergy status to penicillin; Z88.1 Allergy status to other antibiotic agents; Z88.2 Allergy status to sulfonamides; Z88.5 Allergy status to narcotic agent; Z91.013 Allergy to seafood

== ENCOUNTER → 2016-11-18 | Outpatient (CLI) | payer MEDICARE, OTHER ==
[~2016-11-18] MED LIST changes: +ASPI1TAB PO; -BENA20TA2 PO; +BENA20TA8 PO; +BENT10CA PO; +BUPIVACAINE HCL 0.25% 30 ML VIAL As Ordered ONE; +HYDR-3713 PO; +ISOVUE-M 300 61% 15ML VIAL (Q9967) As Ordered ONE; +KEFL500C17 PO; -KEFL500C7 PO; +LIDOCAINE 1% SDV INJ 30 ML VIAL As Ordered ONE; -MACR100C3 PO; +MACR100C43 PO; -METF500T PO; +METF500T13 PO; +TRIAMCINOLONE ACETONIDE SUSP 40 MG/ML VIAL (J3301) As Ordered ONE; +ULTR50TA8 PO
--- NOTE | 2016-11-18 14:13 | REP ---
PARTIAL LUMBAR SPINE SERIES: TWO VIEWS HISTORY: Lumbar facet block for pain. 16 seconds of fluoroscopy time is reported. FINDINGS: A sequence of two last image hold fluoroscopic spot radiographs of the lumbar spine document various needle positions and contrast injections associated with facet injection procedure. Signed by Gilbert Ngo MD 11/18/2016 05:13 P
--- NOTE | 2016-11-27 23:52 | ECWPNPC ---
PATIENT NAME: JOSEPH VOGEL : 1940 GENDER: FEMALE VISIT DATE: 11/18/2016 DISCHARGE DATE: 11/18/16 1126 VISIT LOCKED DATE TIME: PHYSICIAN: MICHEL RIOS RESOURCE: MICHEL RIOS REASON FOR APPOINTMENT 1. LFBT HISTORY OF PRESENT ILLNESS HISTORY OF PRESENT ILLNESS: PAIN THE PATIENT DESCRIBES THE PAIN... FALL RISK SCREENING: SCREENING :NO FALLS IN THE PAST YEAR CURRENT MEDICATIONS TAKING PROPRANOLOL HCL 10 MG TABLET 2 TABLET ORALLY TWICE A DAY, NOTES: 11-18-16699 TAKING METFORMIN HCL 500 MG TABLET EXTENDED RELEASE 24 HOUR 1 TAB ORALLY 3 TIMES A DAY, NOTES: 11-17-16 2100 TAKING HYDROCHLOROTHIAZIDE 25 25 MG TABLET 1 TAB(S) ORAL DAILY, NOTES: 11-18-16699 TAKING BENAZEPRIL HCL 20 MG TABLET 1 TAB(S) ORALLY DAILY, NOTES: 11-18-16 07 TAKING LEVEMIR 52 SOLUTION 60 UNITS UNITS/SUBCUTANEOUS ONCE DAILY, NOTES: 11-17-16 1500 TAKING HUMALOG SLIDING SCALE SOLUTION DIRECTED SUBCUTANEOUS , NOTES: NONE NEEDED TAKING TYLENOL 325 MG TABLET 2 TABLET NEEDED ORALLY EVERY 6 HRS, NOTES: NONE RECENT TAKING PREDNISONE 10 MG TABLET 1 TAB(S) ORALLY DAILY, NOTES: 11-18-16699 TAKING ASPIR-81 81 MG TABLET DELAYED RELEASE 1 TABLET ORALLY ONCE A DAY, NOTES: 11-16-16 TAKING BENTYL 10 MG CAPSULE ORALLY PRN, NOTES: NONE RECENT TAKING CLOTRIMAZOLE-BETAMETHASONE 1-0.05 % CREAM 1 APPLICATION TO AFFECTED AREA EXTERNALLY TO GROIN TWICE A DAY, NOTES: NONE NOT-TAKING OXYBUTYNIN CHLORIDE 5 MG TABLET 1 TABLET ORALLY TWICE A DAY MEDICATION LIST REVIEWED AND RECONCILED WITH THE PATIENT PAST MEDICAL HISTORY HYPERTENSION ARTHRITIS ULCERATIVE COLITIS 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 CATARACTS ABNORMAL EKG SEEN BELT SEWER NO SIGN OF TN DVT LOWER LEFT LEG POP USING A GELHORN # 3 SEVERE ARTHRITIS BULGING DISCS OF THE SPINE PSORIASIS ALLERGIES PENICILLIN (FOR ALLERGIES USE ONLY): ANAPHYLAXIS: ALLERGY SULFA (FOR ALLERGY USE ONLY): HIVES: ALLERGY CIPRO: SWELLING OF MOUTH: ALLERGY NUBAIN: VOMITING: ALLERGY SALMON: TONGUE SWELLING: ALLERGY REVIEW OF SYSTEMS REVIEWED BY: PROVIDER: . CONSTITUTIONAL: ANY CHANGE IN YOUR MEDICAL CONDITION? NO . CHILLS NO . FEVER NO . INFECTION: DO YOU HAVE NEW INFECTIONS? NO . DO YOU HAVE HISTORY OF MRSA? NO . MUSCULOSKELETAL: ANY NEW PATTERNS OF PAIN OR NUMBNESS? NO . GASTROENTEROLOGY: ANY NEW CHANGE IN BOWEL CONTROL? NO . GENITOURINARY: ANY NEW CHANGE IN BLADDER CONTROL? NO . IS THERE A CHANCE YOU COULD BE ? NO . HEMATOLOGY/LYMPH: DO YOU TAKE ANY BLOOD THINNERS? (FOR EXAMPLE- COUMADIN, PLAVIX, AGGRENOX, PLATEL, PRADAXA, OR XARELTO) NO . WHEN WAS YOUR LAST DOSE? DATE: TIME: . NEUROLOGY: HAVE YOU FALLEN IN THE PAST 6 MONTHS? YES . ANY NEW EXTREMITY NUMBNESS OR WEAKNESS? NO . CARDIOLOGY: DO YOU HAVE A PACEMAKER OR DEFIBRILLATOR? NO . RESPIRATORY: HAVE YOU BEEN SICK IN THE PAST WEEK? NO . FEVER NO . FLU LIKE SYMPTOMS? NO . COUGH NO . INTEGUMENTARY: DO YOU HAVE ANY RASHES OR OPEN SORES? NO . ALLERGIC/IMMUNO: ARE YOU ALLERGIC TO SHELLFISH OR IV DYE? YES, SALMON . ANY NEW ALLERGIES? NO . PSYCHIATRIC: DO YOU HAVE THOUGHTS OF HURTING YOURSELF OR SOMEONE ELSE? NO . ARE YOU ABUSED, NEGLECTED, OR IN AN UNSAFE ENVIRONMENT? NO . ENDOCRINOLOGY: ARE YOU DIABETIC? YES, FSBS = 129 . OTHER: DO YOU NEED ANY PRESCRIPTIONS? NO . IF YES, PLEASE LIST: ____ . ANY NEW PROBLEMS WITH YOUR MEDICATIONS? NO . WHEN DID YOU LAST EAT? 11-17-16 7PM . WHEN DID YOU LAST DRINK? 11-18-16 0700 . NAME OF PERSON DRIVING YOU HOME? ANSON VOGEL- DAUGHTER . DO YOU HAVE ANY OTHER QUESTIONS OR CONCERNS NO . VITAL SIGNS WT 141 LBS, HT 61 IN, BMI 26.64 INDEX, BP 150/69 MM HG, HR 72 /MIN, RR 16 /MIN, TEMP 98.1 F, OXYGEN SAT % 94%, NA INITIALS AW 0913, REVIEWED BY: CM. ASSESSMENTS SPONDYLOSIS WITHOUT MYELOPATHY OR RADICULOPATHY, LUMBAR REGION - M47.816 (PRIMARY) PROCEDURES PN LUMBAR FACET BLOCK THERAPEUTIC PRE PROCEDURE DIAGNOSIS LUMBAR SPONDYLOSIS POST PROCEDURE DIAGNOSIS LUMBAR SPONDYLOSIS PROCEDURE BILATERAL L2-L3 AND BILATERAL L3-L4 LUMBAR FACET THERAPEUTIC BLOCK SURGEON DR. MICHEL RIOS MECHANICS HANDYMAN NONE ANESTHESIA LOCAL PRE PROCEDURE NOTE THE PATIENT HAS A HISTORY OF CHRONIC LOW BACK PAIN. I EVALUATE THE PATIENT AND REVIEWED THE CHART. I WENT OVER THE RISKS, ALTERNATIVES, AND BENEFITS ASSOCIATED WITH THIS PROCEDURE. THE PATIENT WOULD LIKE TO PROCEED AND GIVE CONSENT TO PERFORMED THE PROCEDURE. THE PATIENT DENIES UNEXPLAINABLE WEIGHT LOSS, FEVER, CHILLS, OR NEW CHANGES IN URINARY OR BOWEL CONTROL DESCRIPTION OF PROCEDURE THE PATIENT WAS BROUGHT TO THE PROCEDURE ROOM AND PLACED IN THE PRONE POSITION. THE LUMBOSACRAL AREA WAS CLEANED WITH CHLORAPREP SOLUTION AND DRAPED ASEPTICALLY. THE PROCEDURE WAS DONE UNDER STERILE CONDITIONS. I CHECKED LATERALITY AND THE LEVEL WHERE THE PROCEDURE WAS GOING TO BE PERFORMED WITH THE PATIENT AND THE SUPPORTING STAFF AT THE MOMENT OF THE TIME OUT IN THE PROCEDURE ROOM. UNDER FLUOROSCOPIC GUIDANCE, THE TARGET POINT WAS SELECTED AT THE RIGHT AND LEFT L2-L3 AND RIGHT AND LEFT L3-L4 FACET JOINT. TARGET POINT WAS SELECTED AFTER LATERAL ROTATION AND TILT OF THE MAGNIFIER OF THE C-ARM. LIDOCAINE 0.5% WAS USED TO NUMB THE SKIN AND THE SUBCUTANEOUS TISSUE BELOW IT. SPINAL NEEDLES, 22-GAUGE, WERE ADVANCED UNDER FLUOROSCOPIC GUIDANCE AND FOLLOWING PATIENT FEEDBACK UNTIL THE TARGETS WERE TOUCHED. THE POSITION OF THE NEEDLES WAS VERIFIED WITH AP AND LATERAL VIEWS. AFTER PROPER POSITION OF THE NEEDLES WAS ACHIEVED, ISOVUE-M DYE 30% 0.1 ML WAS INJECTED SHOWING ADEQUATE SPREAD OF THE DYE. THEN A SOLUTION OF 1.9 ML OF BUPIVACAINE 0.125% OF KENALOG 10 MG WAS INJECTED AT EACH SITE. THERE WAS NO EVIDENCE OF BLOOD, PARESTHESIA OR CEREBROSPINAL FLUID DURING THE PROCEDURE. THE PATIENT WAS SENT TO THE RECOVERY ROOM. THE PATIENT WAS MOVING THE EXTREMITIES AND DOING WELL. THERE WAS NO COMPLICATION DURING THE PROCEDURE. FLUOROSCOPY TIME WAS 16 SECONDS POST PROCEDURE NOTE THE PATIENT WILL BE SEEN IN A FOLLOW UP IN THE NEXT FEW WEEKS. INSTRUCTIONS WERE GIVEN, QUESTIONS WERE ANSWERED, AND THE PATIENT EXPRESSED UNDERSTANDING AND AGREES WITH THE PLAN. I, RASHID WALSH, DOCUMENTED THE ABOVE INFORMATION ACTING A SCRIBE FOR DR. RIOS. I, DR. RIOS, HAVE REVIEWED THE ABOVE DOCUMENT, SCRIBED BY RASHID WALSH, AND I VERIFY THAT IT IS ACCURATE DIAGNOSTIC IMAGING [facility] FACET BLOCK (PAIN)[id number] PROCEDURE CODES 30789 INJ PARAVERT F JNT L/S 1 LEV 44569 INJ PARAVERT F JNT L/S 2 LEV 6045F RADXPS IN END [id number] PXD DISPOSITION & COMMUNICATION FOLLOW UP 3 WEEKS ELECTRONICALLY SIGNED BY MICHEL RIOS MD ON 11/27/2016 AT 07:28 PM EDT DISCLAIMER : THIS IS A VISIT SUMMARY EXTRACTED FROM THE [employer] CHART. IT IS NOT A COPY OF THE [employer] PROGRESS NOTE. MTDD
== END | disposition home or self-care (01) ==
LOC: M PAIN 09:00
PROVIDERS: ATTEND Anesthesiology
DX: G89.29 Other chronic pain (principal); M47.816 Spondylosis without myelopathy or radiculopathy, lumbar region; I10 Essential (primary) hypertension; M19.90 Unspecified osteoarthritis, unspecified site; K51.90 Ulcerative colitis, unspecified, without complications; R00.8 Other abnormalities of heart beat; E11.9 Type 2 diabetes mellitus without complications; R32 Unspecified urinary incontinence; L40.9 Psoriasis, unspecified; Z79.899 Other long term (current) drug therapy; Z79.84 Long term (current) use of oral hypoglycemic drugs; Z79.4 Long term (current) use of insulin; Z88.0 Allergy status to penicillin; Z88.2 Allergy status to sulfonamides; Z88.8 Allergy status to other drugs, medicaments and biological substances; Z91.013 Allergy to seafood
CPT/HCPCS: 64493; 64494; J3301; Q9967

== ENCOUNTER → 2016-12-07 | Outpatient (CLI) | payer MEDICARE, OTHER ==
[~2016-12-07] MED LIST changes: -BUPIVACAINE HCL 0.25% 30 ML VIAL As Ordered ONE; -ISOVUE-M 300 61% 15ML VIAL (Q9967) As Ordered ONE; -LIDOCAINE 1% SDV INJ 30 ML VIAL As Ordered ONE; -TRIAMCINOLONE ACETONIDE SUSP 40 MG/ML VIAL (J3301) As Ordered ONE
--- NOTE | 2016-12-20 00:05 | ECWPNPC ---
PATIENT NAME: JOSEPH VOGEL : 1940 GENDER: FEMALE VISIT DATE: 12/07/2016 DISCHARGE DATE: 12/07/16 1600 VISIT LOCKED DATE TIME: PHYSICIAN: MICHEL RIOS RESOURCE: MICHEL RIOS REASON FOR APPOINTMENT 1. LOW BACK PAIN HISTORY OF PRESENT ILLNESS HISTORY OF PRESENT ILLNESS: PAIN THE PATIENT DESCRIBES THE PAIN... 76 YEAR OLD FEMALE PATIENT WITH HISTORY OF CHRONIC LOW BACK PAIN. PATIENT DESCRIBES THE PAIN ACHING, SORE, STABBING, AND TENDER WITH A PAIN SCORE OF 8/10. PATIENT RECEIVED A LUMBAR FACET BLOCK ON 11/18/16 AND REPORTS ONLY HAVING RELIEF FOR 2-3 DAYS AND THEN THE PAIN RETURNED. CURRENTLY THE PATIENT IS USING TYLENOL TO AID IN PAIN RELIEF. PATIENT STATES NARCOTICS MAKE HER ILL. PATIENT REPORTS HAVING LEG PAIN SIMILAR TO WHAT SHE WAS HAVING PRIOR TO THE LUMBAR EPIDURAL. PATIENT STATES IT IS DIFFICULT TO DO EVERYDAY ACTIVITIES INCLUDING WALKING, STANDING, SITTING AND HOUSEWORK. PATIENT DENIES UNEXPLAINABLE WEIGHT LOSS, FEVER, CHILLS, NEW CHANGES ON HER URINARY OR BOWEL CONTROL. FALL RISK SCREENING: SCREENING :NO FALLS IN THE PAST YEAR CURRENT MEDICATIONS TAKING PROPRANOLOL HCL 10 MG TABLET 2 TABLET ORALLY TWICE A DAY TAKING METFORMIN HCL 500 MG TABLET EXTENDED RELEASE 24 HOUR 1 TAB ORALLY 3 TIMES A DAY TAKING HYDROCHLOROTHIAZIDE 25 25 MG TABLET 1 TAB(S) ORAL DAILY TAKING BENAZEPRIL HCL 20 MG TABLET 1 TAB(S) ORALLY DAILY TAKING LEVEMIR 52 SOLUTION 60 UNITS UNITS/SUBCUTANEOUS ONCE DAILY TAKING HUMALOG SLIDING SCALE SOLUTION DIRECTED SUBCUTANEOUS TAKING TYLENOL 325 MG TABLET 2 TABLET NEEDED ORALLY EVERY 6 HRS TAKING PREDNISONE 10 MG TABLET 1 TAB(S) ORALLY DAILY TAKING ASPIR-81 81 MG TABLET DELAYED RELEASE 1 TABLET ORALLY ONCE A DAY TAKING BENTYL 10 MG CAPSULE ORALLY PRN TAKING CLOTRIMAZOLE-BETAMETHASONE 1-0.05 % CREAM 1 APPLICATION TO AFFECTED AREA EXTERNALLY TO GROIN TWICE A DAY NOT-TAKING OXYBUTYNIN CHLORIDE 5 MG TABLET 1 TABLET ORALLY TWICE A DAY MEDICATION LIST REVIEWED AND RECONCILED WITH THE PATIENT PAST MEDICAL HISTORY HYPERTENSION ARTHRITIS ULCERATIVE COLITIS 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 CONSTITUTIONAL: ANY CHANGE IN YOUR MEDICAL CONDITION? GOING TO [place] TO HAVE BLADDER LOOKED AT AND POSS. HYSTERECTOMY AND SOMETHING ELSE THAT SHE CAN'T REMEMBER AT THIS TIME.&NBSP;. CHILLS &NBSP;&NBSP; NO&NBSP;. FEVER &NBSP;&NBSP; NO&NBSP;. INFECTION: DO YOU HAVE NEW INFECTIONS? NO . DO YOU HAVE HISTORY OF MRSA? NO . MUSCULOSKELETAL: ANY NEW PATTERNS OF PAIN OR NUMBNESS? NO . GASTROENTEROLOGY: ANY NEW CHANGE IN BOWEL CONTROL? NO . GENITOURINARY: ANY NEW CHANGE IN BLADDER CONTROL? NO . IS THERE A CHANCE YOU COULD BE ? NO . HEMATOLOGY/LYMPH: DO YOU TAKE ANY BLOOD THINNERS? (FOR EXAMPLE- COUMADIN, PLAVIX, AGGRENOX, PLATEL, PRADAXA, OR XARELTO) NO . WHEN WAS YOUR LAST DOSE? DATE: TIME: . NEUROLOGY: HAVE YOU FALLEN IN THE PAST 6 MONTHS? NO . ANY NEW EXTREMITY NUMBNESS OR WEAKNESS? NO . CARDIOLOGY: DO YOU HAVE A PACEMAKER OR DEFIBRILLATOR? NO . RESPIRATORY: HAVE YOU BEEN SICK IN THE PAST WEEK? NO . FEVER NO . FLU LIKE SYMPTOMS? NO . COUGH NO . INTEGUMENTARY: DO YOU HAVE ANY RASHES OR OPEN SORES? NO . ALLERGIC/IMMUNO: ARE YOU ALLERGIC TO SHELLFISH OR IV DYE? NO . ANY NEW ALLERGIES? NO . PSYCHIATRIC: DO YOU HAVE THOUGHTS OF HURTING YOURSELF OR SOMEONE ELSE? NO . ARE YOU ABUSED, NEGLECTED, OR IN AN UNSAFE ENVIRONMENT? NO . ENDOCRINOLOGY: ARE YOU DIABETIC? YES . OTHER: DO YOU NEED ANY PRESCRIPTIONS? NO . IF YES, PLEASE LIST: ____ . ANY NEW PROBLEMS WITH YOUR MEDICATIONS? NO . WHEN DID YOU LAST EAT? ____ . WHEN DID YOU LAST DRINK? ____ . WHAT DID YOU LAST DRINK? ____ . NAME OF PERSON DRIVING YOU HOME? ____ . DO YOU HAVE ANY OTHER QUESTIONS OR CONCERNS NO . VITAL SIGNS WT 137.0 LBS, HT 61 IN, BMI 25.88 INDEX, BP 154/72 MM HG, HR 76 /MIN, RR 16 /MIN, TEMP 97.7 F, OXYGEN SAT % 95%, NA INITIALS TL 0926, REVIEWED BY: AD. EXAMINATION : PATIENT IS ALERT O X 3 AND COOPERATIVE. TENDERNESS IN THE LOWER BACK AND PARASPINAL MUSCLE GROUP. LIMPING FROM LEFT LEG. LEFT LEG IS WEAKER THEN THE RIGHT AT EXTENSION AND FLEXION. MRI DONE ON 10/20/15 SHOWS DISC BULGES FROM L2-L3 THROUGH L5-S1, CANAL STENOSIS, AND FACET HYPERTROPHY. ASSESSMENTS INTERVERTEBRAL DISC DISORDERS WITH RADICULOPATHY, LUMBAR REGION - M51.16 (PRIMARY) SPONDYLOSIS WITHOUT MYELOPATHY OR RADICULOPATHY, LUMBAR REGION - M47.816 SPONDYLOSIS WITHOUT MYELOPATHY OR RADICULOPATHY, LUMBOSACRAL REGION - M47.817 INTERVERTEBRAL DISC DISORDERS WITH RADICULOPATHY, LUMBOSACRAL REGION - M51.17 TREATMENT SPONDYLOSIS WITHOUT MYELOPATHY OR RADICULOPATHY, LUMBAR REGION NOTES: WE DISCUSSED SEVERAL ISSUES WITH MRS. VOGEL'S PAIN MANAGEMENT CASE. AT THIS TIME THE PATIENT WILL START GABAPENTIN AT NIGHT TO AID WITH THE NEUROPATHIC PAIN. PATIENT REPORTS HAVING LEG PAIN RETURN FROM THE LUMBAR EPIDURAL. I WOULD LIKE TO PROCEED WITH A LUMBAR EPIDURAL DUE TO THIS. WE DISCUSSED THE RISKS, BENENFITS, AND ALTNERATIVES OF THE INJECTION AND THE PATIENT WOULD LIKE TO PROCEED. PATIENT WILL RETURN TO THE CLINIC IN ONE WEEK TO DISCUSS HOW THE MEDICATION WORKED FOR HER. INSTRUCTIONS WERE GIVEN, QUESTIONS WERE ANSWERED, PATIENT REPORTS UNDERSTANDING AND AGREES WITH THE PLAN. I, RASHID WALSH, DOCUMENTED THE ABOVE INFORMATION ACTING A SCRIBE FOR DR. RIOS. I HAVE REVIEWED THE ABOVE DOCUMENT, WRITTEN BY RASHID VILLANUEVA AND I VERIFY THAT IT IS ACCURATE. OTHERS START GABAPENTIN CAPSULE, 100 MG, DIRECTED, ORALLY FOR PAIN, THREE TIMES A DAY, 30 DAY(S), 90, REFILLS 1 PREVENTIVE MEDICINE PAIN CLINIC TEACHING: MEDICATIONS PRINTED INFORMATION ON GABAPENTIN GIVEN TO AND REVIEWED WITH PT. AND SHE VERBALIZED UNDERSTANDING. AD. PROCEDURE CODES FA211 ESTABILISHED PATIENT [facility] FACILITY CHARGE G8427 DOC MEDS VERIFIED W/PT OR RE V1781 PAIN ASSESS POS TOOL F/U PLAN DOC DISPOSITION & COMMUNICATION FOLLOW UP 3 WEEKS ELECTRONICALLY SIGNED BY MICHEL RIOS MD ON 12/19/2016 AT 11:37 AM EDT DISCLAIMER : THIS IS A VISIT SUMMARY EXTRACTED FROM THE [employer] CHART. IT IS NOT A COPY OF THE [employer] PROGRESS NOTE. DENY
== END ==
LOC: M PAIN 09:15
PROVIDERS: ATTEND Anesthesiology
DX: M51.16 Intervertebral disc disorders with radiculopathy, lumbar region (principal); M47.816 Spondylosis without myelopathy or radiculopathy, lumbar region; M47.817 Spondylosis without myelopathy or radiculopathy, lumbosacral region; M51.17 Intervertebral disc disorders with radiculopathy, lumbosacral region; Z79.82 Long term (current) use of aspirin; Z79.84 Long term (current) use of oral hypoglycemic drugs; Z79.4 Long term (current) use of insulin; Z79.52 Long term (current) use of systemic steroids; Z79.899 Other long term (current) drug therapy; Z88.0 Allergy status to penicillin; Z88.2 Allergy status to sulfonamides; Z88.1 Allergy status to other antibiotic agents; Z88.8 Allergy status to other drugs, medicaments and biological substances

== ENCOUNTER 2016-12-10 20:32 | Emergency (ER) | payer MEDICARE, OTHER ==
[~2016-12-10] VITALS: Ht 154.9 cm; Wt 68.5 kg
[~2016-12-10 20:32] MED LIST changes: -ASPI1TAB PO; -BENT10CA PO; -HYDR-3713 PO; -ULTR50TA8 PO
[2016-12-10] MEDS ORDERED: BENT10CA PO (20:47)
[2016-12-10] MEDS ORDERED: ACETAMINOPHEN 325 MG TAB PO ONE (22:45)
[2016-12-10] MEDS ORDERED: traMADol 50 MG TAB PO ONE (22:45)
[2016-12-10 23:42] LABS: YEAST LIKE CELL URINE AUTO LARGE
--- NOTE | 2016-12-11 00:40 | REPUSA ---
CLINICAL HISTORY: Back pain. TECHNIQUE: Multiple axial images were obtained through the L1-L2, L2-L3, L3-L4, L4-L5 and L5-S1 inter spaces. Images were also reconstructed in coronal and sagittal planes. COMMENTS: Moderate degenerative dextroscoliosis apex at L3. Grade one anterolisthesis of L5 on S1 measuring 5.7 mm secondary to prominent facet joint arthropathy . There is no fracture visualized. The paraspinal soft tissues are unremarkable. There are no lytic or blastic lesions. Straightening of lumbar lordosis is seen, suggesting muscular spasm. There is evidence of multilevel disk disease, demonstrated by osteophytosis ad endplate sclerosis. Evaluation of individual levels reveals the following: At L5-S1, moderate diffuse disc bulge. Superimposed broad-based left paracentral/posterolateral disc protrusion measuring 4.5 mm in its largest anteroposterior dimension. Bilateral facet joint arthropat hy. The spinal canal is moderately narrowed. Moderate to severe bilateral neural foramina narrowing. Findings are more prominent on the right side. At L4-L5 and L3-L4 and L2-L3 broad-based disk protrusion in conjunction with hypertrophic facet disea se results in moderate bilateral foraminal narrowing. Canal is mildly stenotic. IMPRESSION: 1. No fracture. 2. Straightening of lumbar lordosis is seen, suggesting muscular spasm. 3. Grade 1 anterolisthesis of L5 on S1. Spondylosis. 4. Multilevel degenerative disc disease. Findings are more severe from L3-S1 levels. Thank you for your kind referral of this patient.
[2016-12-11] MEDS ORDERED: ULTR50TA8 PO (01:00)
[2016-12-11 01:19] VITALS: BP 132/67
--- NOTE | 2016-12-11 21:37 | REP ---
LUMBOSACRAL SPINE, FIVE VIEWS: Five views of the lumbosacral spine are performed. There is no compression fracture. There is mild anterior spondylolisthesis of L5 on S1 which appears to due to posterior facet arthropathy. Moderate disc space narrowing of subchondral sclerosis and vacuum phenomenon is noted at L2-3, L3-4, and L5-S1. There is mild narrowing at L4-5. There is diffuse osteopenia. There is moderate curvature toward the right. The posterior elements appear intact. There is sclerosis at the sacroiliac joints. IMPRESSION: Degenerative changes without evidence of acute fracture. Mild spondylolisthesis L5 on S1 appears to be due to posterior facet arthropathy and it is not acute. Osteopenia with diffuse degenerative changes. Signed by David Marrero MD 12/12/2016 01:09 P
[2017-03-18] MEDS ORDERED: ASPI1TAB PO (10:34)
[2017-03-18] MEDS ORDERED: HYDR-3713 PO (10:34)
== END 2016-12-11 01:21 | disposition home or self-care (01) ==
LOC: M ED 20:32
DX: M54.42 Lumbago with sciatica, left side (principal); M48.00 Spinal stenosis, site unspecified; M41.9 Scoliosis, unspecified; M51.37 Other intervertebral disc degeneration, lumbosacral region; R31.9 Hematuria, unspecified; N32.81 Overactive bladder; Z88.0 Allergy status to penicillin; Z88.1 Allergy status to other antibiotic agents; Z88.2 Allergy status to sulfonamides; Z88.8 Allergy status to other drugs, medicaments and biological substances; Z79.899 Other long term (current) drug therapy; Z79.4 Long term (current) use of insulin; Z91.81 History of falling

== ENCOUNTER → 2016-12-12 | Outpatient (CLI) | payer MEDICARE, OTHER ==
[~2016-12-12] MED LIST changes: +ASPI1TAB PO; +BENT10CA PO; +HYDR-3713 PO; +ULTR50TA8 PO
--- NOTE | 2016-12-27 01:02 | ECWPNPC ---
PATIENT NAME: JOSEPH VOGEL : 1940 GENDER: FEMALE VISIT DATE: 12/12/2016 DISCHARGE DATE: 12/12/16 1126 VISIT LOCKED DATE TIME: PHYSICIAN: MICHEL RIOS RESOURCE: MICHEL RIOS REASON FOR APPOINTMENT 1. LOW BACK PAIN HISTORY OF PRESENT ILLNESS HISTORY OF PRESENT ILLNESS: PAIN THE PATIENT DESCRIBES THE PAIN... 76 YEAR OLD FEMALE PATIENT WITH HISTORY OF CHRONIC LOW BACK PAIN. PATIENT DESCRIES THE PAIN ACHING, BURNING, SHARP, AND HAVING IT ALL THE TIME WITH A PAIN SCORE OF 8-10/10. MRS. VOGEL STATES THAT THE TRAMADOL MAKES HER SICK AND DOESN'T LIKE TO TAKE IT BUT IT DOES AID IN PAIN RELIEF IF SHE DOES NOT GET SICK. PATIENT STATES GABAPENTIN MADE HER PAIN INCREASE SIGNIFICANTLY. PATIENT REPORTS ANY TYPE OF ACTIVITY ESPECIALLY WALKING INCREASING THE PAIN IN HER LOWER BACK. PATIENT DENIES UNEXPLAINABLE WEIGHT LOSS, FEVER, CHILLS, NEW CHANGES ON HER URINARY OR BOWEL CONTROL. FALL RISK SCREENING: SCREENING :NO FALLS IN THE PAST YEAR CURRENT MEDICATIONS TAKING PROPRANOLOL HCL 10 MG TABLET 2 TABLET ORALLY TWICE A DAY TAKING METFORMIN HCL 500 MG TABLET EXTENDED RELEASE 24 HOUR 1 TAB ORALLY 3 TIMES A DAY TAKING HYDROCHLOROTHIAZIDE 25 25 MG TABLET 1 TAB(S) ORAL DAILY TAKING BENAZEPRIL HCL 20 MG TABLET 1 TAB(S) ORALLY DAILY TAKING LEVEMIR 52 SOLUTION 60 UNITS UNITS/SUBCUTANEOUS ONCE DAILY TAKING HUMALOG SLIDING SCALE SOLUTION DIRECTED SUBCUTANEOUS TAKING TYLENOL 325 MG TABLET 2 TABLET NEEDED ORALLY EVERY 6 HRS TAKING PREDNISONE 10 MG TABLET 1 TAB(S) ORALLY DAILY TAKING ASPIR-81 81 MG TABLET DELAYED RELEASE 1 TABLET ORALLY ONCE A DAY TAKING BENTYL 10 MG CAPSULE ORALLY PRN TAKING CLOTRIMAZOLE-BETAMETHASONE 1-0.05 % CREAM 1 APPLICATION TO AFFECTED AREA EXTERNALLY TO GROIN TWICE A DAY TAKING TRAMADOL HCL 50 MG TABLET 1 TAB ORALLY EVERY 6 HOURS NEEDED/MMD#4 NOT-TAKING GABAPENTIN 100 MG CAPSULE DIRECTED ORALLY FOR PAIN THREE TIMES A DAY NOT-TAKING OXYBUTYNIN CHLORIDE 5 MG TABLET 1 TABLET ORALLY TWICE A DAY MEDICATION LIST REVIEWED AND RECONCILED WITH THE PATIENT PAST MEDICAL HISTORY HYPERTENSION ARTHRITIS ULCERATIVE COLITIS 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 CATARACTS ABNORMAL EKG SEEN ANALYST NO SIGN OF SD DVT LOWER LEFT LEG POP USING A GELHORN # 3 SEVERE ARTHRITIS BULGING DISCS OF THE SPINE PSORIASIS ALLERGIES PENICILLIN (FOR ALLERGIES USE ONLY): ANAPHYLAXIS: ALLERGY SULFA (FOR ALLERGY USE ONLY): HIVES: ALLERGY CIPRO: SWELLING OF MOUTH: ALLERGY NUBAIN: VOMITING: ALLERGY SALMON: TONGUE SWELLING: ALLERGY SURGICAL HISTORY NO SURGICAL HISTORY DOCUMENTED. FAMILY HISTORY FATHER: HEART DISEASE MOTHER: HEART DISEASE SON(S): SD AGE 41 SOCIAL HISTORY GENERAL: TOBACCO USE ARE YOU A:NONSMOKER NEVER SMOKER ALCOHOL SCREENING DID YOU HAVE A DRINK CONTAINING ALCOHOL IN THE PAST YEAR?NO POINTS0 INTERPRETATIONNEGATIVE RECREATIONAL DRUG USE DRUG USE? NO. CAFFEINE CAFFEINE USE? NO . SEXUAL HX HAD SEX IN THE LAST 12 MONTHS (VAGINAL, ORAL, OR ANAL)?NO HAVE YOU EVER HAD AN STD?NO OCCUPATION: RETIRED. DIET: REGULAR. EXERCISE: NO REGULAR EXERCISE. MARITAL STATUS: . OTHERS AT HOME: SPOUSE. PETS: 2 DOGS. M[employer]AVIAN [id number] LANGUAGE LANGUAGES SPOKEN:CYPRIOT LEARNING BARRIERS / SPECIAL NEEDS CHANGE FROM LAST VISIT?NO BARRIERS TO LEARNING?NO HEARING IMPAIRED?NO VISION IMPAIRED?YES :CORRECTIVE LENSES COGNITIVELY IMPAIRED?NO READINESS TO LEARN?YES LEARNING PREFERENCES?NO LEARNING CAPABILITIES PRESENT?YES EMOTIONAL BARRIERS?NO SPECIAL DEVICES?NO CANVAS SHRINKER NEEDED?NO PSYCHOLOGICAL HX TREATMENT NO . PAIN CLINIC PFS, CLERGY, PUBLIC HEALTH REFERRALS PFS REFERRAL NEEDED?NO CLERGY REFERRAL NEEDED?NO PUBLIC HEALTH REFERRAL NEEDED?NO WAS THE PROVIDER NOTIFIED OF ANY PERTINENT INFO?YES REVIEWED BY: MAIN. PATIENT: ____. ADVANCE DIRECTIVES HEALTH CARE PROXY?NO POWER OF DIVERSITY MANAGER?NO HOSPITALIZATION/MAJOR DIAGNOSTIC PROCEDURE KIDNEY STONE AND SEPSIS 2014 REVIEW OF SYSTEMS REVIEWED BY: PROVIDER: . CONSTITUTIONAL: ANY CHANGE IN YOUR MEDICAL CONDITION? NO . CHILLS NO . FEVER NO . INFECTION: DO YOU HAVE NEW INFECTIONS? NO . DO YOU HAVE HISTORY OF MRSA? NO . MUSCULOSKELETAL: ANY NEW PATTERNS OF PAIN OR NUMBNESS? YES, PAIN IS WORSE! WAS IN BED 2 DAYS WITH BACK PAIN. DID NOT FALL. WENT TO ER MONDAY NIGHT. CT AND XR DONE. GIVEN PAIN MEDS. . GASTROENTEROLOGY: ANY NEW CHANGE IN BOWEL CONTROL? NO . GENITOURINARY: ANY NEW CHANGE IN BLADDER CONTROL? NO . IS THERE A CHANCE YOU COULD BE ? NO . HEMATOLOGY/LYMPH: DO YOU TAKE ANY BLOOD THINNERS? (FOR EXAMPLE- COUMADIN, PLAVIX, AGGRENOX, PLATEL, PRADAXA, OR XARELTO) NO . WHEN WAS YOUR LAST DOSE? DATE: TIME: . NEUROLOGY: HAVE YOU FALLEN IN THE PAST 6 MONTHS? YES . ANY NEW EXTREMITY NUMBNESS OR WEAKNESS? NO . CARDIOLOGY: DO YOU HAVE A PACEMAKER OR DEFIBRILLATOR? NO . RESPIRATORY: HAVE YOU BEEN SICK IN THE PAST WEEK? NO . FEVER NO . FLU LIKE SYMPTOMS? NO . COUGH NO . INTEGUMENTARY: DO YOU HAVE ANY RASHES OR OPEN SORES? NO . ALLERGIC/IMMUNO: ARE YOU ALLERGIC TO SHELLFISH OR IV DYE? NO . ANY NEW ALLERGIES? NO . PSYCHIATRIC: DO YOU HAVE THOUGHTS OF HURTING YOURSELF OR SOMEONE ELSE? NO . ARE YOU ABUSED, NEGLECTED, OR IN AN UNSAFE ENVIRONMENT? NO . ENDOCRINOLOGY: ARE YOU DIABETIC? YES . OTHER: DO YOU NEED ANY PRESCRIPTIONS? NO . IF YES, PLEASE LIST: ____ . ANY NEW PROBLEMS WITH YOUR MEDICATIONS? NO . WHEN DID YOU LAST EAT? ____ . WHEN DID YOU LAST DRINK? ____ . WHAT DID YOU LAST DRINK? ____ . NAME OF PERSON DRIVING YOU HOME? ____ . DO YOU HAVE ANY OTHER QUESTIONS OR CONCERNS NO . VITAL SIGNS WT 137 LBS, HT 61 IN, BMI 25.88 INDEX, BP 147/89 MM HG, HR 94 /MIN, RR 16 /MIN, TEMP 96.6 F, OXYGEN SAT % 92%, NA INITIALS SC 10:10, REVIEWED BY: SALMA. EXAMINATION : PATIENT IS ALERT O X 3 AND COOPERATIVE. TENDERNESS IN THE LOWER BACK AND PARASPINAL MUSCLE GROUP. LIMPING FROM LEFT LEG. LEFT LEG IS WEAKER THEN THE RIGHT AT EXTENSION AND FLEXION. MRI DONE ON 10/20/15 SHOWS DISC BULGES FROM L2-L3 THROUGH L5-S1, CANAL STENOSIS, AND FACET HYPERTROPHY. ASSESSMENTS INTERVERTEBRAL DISC DISORDERS WITH RADICULOPATHY, LUMBAR REGION - M51.16 (PRIMARY) INTERVERTEBRAL DISC DISORDERS WITH RADICULOPATHY, LUMBOSACRAL REGION - M51.17 SPONDYLOSIS WITHOUT MYELOPATHY OR RADICULOPATHY, LUMBAR REGION - M47.816 SPONDYLOSIS WITHOUT MYELOPATHY OR RADICULOPATHY, LUMBOSACRAL REGION - M47.817 TREATMENT INTERVERTEBRAL DISC DISORDERS WITH RADICULOPATHY, LUMBAR REGION NOTES: WE DISCUSSED SEVERAL ISSUES WITH MRS. VOGEL'S PAIN MANAGEMENT CASE. AT THIS TIME THE PATIENT WILL CONTINUE TO USE GABAPENTIN. WE DISCUSSED THE MEDICATION IN DETAIL AND IT IS BELIEVED TO BE A COINCIDENCE THAT WHEN SHE STARTED THE MEDICATION HER PAIN INCREASED. PATIENT WAS ADVISED TO STOP THE MEDICATION IF IT CONTINUE TO INCREASE HER PAIN. PATIENT WILL STOP TRAMADOL AND USE ULTRACET. WE DISCUSSED THE POSSIBILITY THAT ULTRACET MAY NOT UPSET HER STOMACH MUCH TRAMADOL DID. DUE TO THE RADICULAR PAIN I WOULD LIKE THE PATIENT TO RECEIVE A LUMBAR EPIDURAL TO HELP WITH THE LEG PAIN. WE DISCUSSED THE RISKS, BENENFITS, AND ALTNERATIVES OF THE INJECTION AND THE PATIENT WOULD LIKE TO PROCEED AT THIS TIME. INSTRUCTIONS WERE GIVEN, QUESTIONS WERE ANSWERED, PATIENT REPORTS UNDERSTANDING AND AGREES WITH THE PLAN. I, RASHID WALSH, DOCUMENTED THE ABOVE INFORMATION ACTING A SCRIBE FOR DR. RIOS. I HAVE REVIEWED THE ABOVE DOCUMENT, WRITTEN BY RASHID VILLANUEVA AND I VERIFY THAT IT IS ACCURATE. OTHERS START TRAMADOL-ACETAMINOPHEN TABLET, 37.5-325 MG, 1 TABLETS NEEDED FOR PAIN, ORALLY, EVERY 4 HRS MDD4, 10 DAY(S), 40, REFILLS 0 START ZOFRAN TABLET, 4 MG, 1 TABLETS, ORALLY FOR NAUSEAS, EVERY 8 HOURS NEEDED MDD2, 10 DAY(S), 20, REFILLS 0 START ZOFRAN TABLET, 4 MG, 1 TABLETS, ORALLY FOR NAUSEAS, EVERY 6 HOURS NEEDED MDD2, 10 DAY(S), 20, REFILLS 0 NOTES: WHAT IS LUMBAR EPIDURAL INJECTION? MATERIAL WAS PRINTED. PROCEDURE CODES FA211 ESTABILISHED PATIENT [facility] FACILITY CHARGE G8427 DOC MEDS VERIFIED W/PT OR RE G8730 PAIN ASSESS POS TOOL F/U PLAN DOC DISPOSITION & COMMUNICATION FOLLOW UP LESI AFTER APPROVAL ELECTRONICALLY SIGNED BY MICHEL RIOS MD ON 12/26/2016 AT 12:49 PM EDT DISCLAIMER : THIS IS A VISIT SUMMARY EXTRACTED FROM THE [employer] CHART. IT IS NOT A COPY OF THE [employer] PROGRESS NOTE. MTDD
== END | disposition home or self-care (01) ==
LOC: M PAIN 10:00
PROVIDERS: ATTEND Anesthesiology
DX: G89.29 Other chronic pain (principal); M51.16 Intervertebral disc disorders with radiculopathy, lumbar region; M51.17 Intervertebral disc disorders with radiculopathy, lumbosacral region; M47.816 Spondylosis without myelopathy or radiculopathy, lumbar region; M47.817 Spondylosis without myelopathy or radiculopathy, lumbosacral region; I10 Essential (primary) hypertension; M19.90 Unspecified osteoarthritis, unspecified site; E11.9 Type 2 diabetes mellitus without complications; Z87.442 Personal history of urinary calculi; R32 Unspecified urinary incontinence; L40.9 Psoriasis, unspecified; Z87.19 Personal history of other diseases of the digestive system; Z86.718 Personal history of other venous thrombosis and embolism; Z79.899 Other long term (current) drug therapy; Z79.4 Long term (current) use of insulin; Z79.82 Long term (current) use of aspirin; Z79.52 Long term (current) use of systemic steroids; Z88.0 Allergy status to penicillin; Z88.2 Allergy status to sulfonamides; Z88.1 Allergy status to other antibiotic agents; Z88.8 Allergy status to other drugs, medicaments and biological substances; Z91.013 Allergy to seafood

== ENCOUNTER → 2016-12-21 | Outpatient (CLI) | payer MEDICARE, OTHER ==
--- NOTE | 2017-01-09 00:04 | ECWPNPC ---
PATIENT NAME: JOSEPH VOGEL : 1940 GENDER: FEMALE VISIT DATE: 12/21/2016 DISCHARGE DATE: 12/21/16 1558 VISIT LOCKED DATE TIME: PHYSICIAN: MICHEL RIOS RESOURCE: MICHEL RIOS REASON FOR APPOINTMENT 1. LOW BACK PAIN HISTORY OF PRESENT ILLNESS HISTORY OF PRESENT ILLNESS: PAIN THE PATIENT DESCRIBES THE PAIN... 76 YEAR OLD FEMALE PATIENT WITH HISTORY OF CHRONIC LOW BACK PAIN. PATIENT DESCRIES THE PAIN ACHING, BURNING, SHARP, AND HAVING IT ALL THE TIME WITH A PAIN SCORE OF 8-10/10. MRS. VOGEL STATES THAT THE ULTRACET DOESN'T AID IN PAIN RELIEF. MRS. VOGEL USED HYDROCODONE FROM A PREVIOUS INJURY AND REPORTS IT AIDING IN PAIN RELIEF AND DID NOT MAKE HER SICK. PATIENT REPORTS ANY TYPE OF ACTIVITY ESPECIALLY WALKING INCREASING THE PAIN IN HER LOWER BACK. PATIENT DENIES UNEXPLAINABLE WEIGHT LOSS, FEVER, CHILLS, NEW CHANGES ON HER URINARY OR BOWEL CONTROL. FALL RISK SCREENING: SCREENING :NO FALLS IN THE PAST YEAR CURRENT MEDICATIONS TAKING ZOFRAN 4 MG TABLET 1 TABLETS ORALLY FOR NAUSEAS EVERY 8 HOURS NEEDED MDD2 TAKING PROPRANOLOL HCL 10 MG TABLET 2 TABLET ORALLY TWICE A DAY TAKING METFORMIN HCL 500 MG TABLET EXTENDED RELEASE 24 HOUR 1 TAB ORALLY 3 TIMES A DAY TAKING HYDROCHLOROTHIAZIDE 25 25 MG TABLET 1 TAB(S) ORAL DAILY TAKING BENAZEPRIL HCL 20 MG TABLET 1 TAB(S) ORALLY DAILY TAKING LEVEMIR 52 SOLUTION 60 UNITS UNITS/SUBCUTANEOUS ONCE DAILY TAKING HUMALOG SLIDING SCALE SOLUTION DIRECTED SUBCUTANEOUS TAKING TYLENOL 325 MG TABLET 2 TABLET NEEDED ORALLY EVERY 6 HRS TAKING PREDNISONE 10 MG TABLET 1 TAB(S) ORALLY DAILY TAKING ASPIR-81 81 MG TABLET DELAYED RELEASE 1 TABLET ORALLY ONCE A DAY TAKING BENTYL 10 MG CAPSULE ORALLY PRN TAKING CLOTRIMAZOLE-BETAMETHASONE 1-0.05 % CREAM 1 APPLICATION TO AFFECTED AREA EXTERNALLY TO GROIN TWICE A DAY NOT-TAKING TRAMADOL-ACETAMINOPHEN 37.5-325 MG TABLET 1 TABLETS NEEDED FOR PAIN ORALLY EVERY 4 HRS MDD4 NOT-TAKING ULTRACET 37.5-325 MG TABLET 2 TABLETS NEEDED ORALLY EVERY 6 HRS PRN FOR PAIN MDD6 NOT-TAKING TRAMADOL HCL 50 MG TABLET 1 TAB ORALLY EVERY 6 HOURS NEEDED/MMD#4 NOT-TAKING GABAPENTIN 100 MG CAPSULE DIRECTED ORALLY FOR PAIN THREE TIMES A DAY NOT-TAKING OXYBUTYNIN CHLORIDE 5 MG TABLET 1 TABLET ORALLY TWICE A DAY DISCONTINUED ZOFRAN 4 MG TABLET 1 TABLETS ORALLY FOR NAUSEAS EVERY 6 HOURS NEEDED MDD2 MEDICATION LIST REVIEWED AND RECONCILED WITH THE PATIENT PAST MEDICAL HISTORY HYPERTENSION ARTHRITIS ULCERATIVE COLITIS 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 CONSTITUTIONAL: ANY CHANGE IN YOUR MEDICAL CONDITION? NO . CHILLS NO . FEVER NO . INFECTION: DO YOU HAVE NEW INFECTIONS? NO . DO YOU HAVE HISTORY OF MRSA? NO . MUSCULOSKELETAL: ANY NEW PATTERNS OF PAIN OR NUMBNESS? NO . GASTROENTEROLOGY: ANY NEW CHANGE IN BOWEL CONTROL? NO . GENITOURINARY: ANY NEW CHANGE IN BLADDER CONTROL? NO . IS THERE A CHANCE YOU COULD BE ? NO . HEMATOLOGY/LYMPH: DO YOU TAKE ANY BLOOD THINNERS? (FOR EXAMPLE- COUMADIN, PLAVIX, AGGRENOX, PLATEL, PRADAXA, OR XARELTO) NO . WHEN WAS YOUR LAST DOSE? DATE: TIME: . NEUROLOGY: HAVE YOU FALLEN IN THE PAST 6 MONTHS? NO . ANY NEW EXTREMITY NUMBNESS OR WEAKNESS? NO . CARDIOLOGY: DO YOU HAVE A PACEMAKER OR DEFIBRILLATOR? NO . RESPIRATORY: HAVE YOU BEEN SICK IN THE PAST WEEK? NO . FEVER NO . FLU LIKE SYMPTOMS? NO . COUGH NO . INTEGUMENTARY: DO YOU HAVE ANY RASHES OR OPEN SORES? NO . ALLERGIC/IMMUNO: ARE YOU ALLERGIC TO SHELLFISH OR IV DYE? NO . ANY NEW ALLERGIES? NO . PSYCHIATRIC: DO YOU HAVE THOUGHTS OF HURTING YOURSELF OR SOMEONE ELSE? NO . ARE YOU ABUSED, NEGLECTED, OR IN AN UNSAFE ENVIRONMENT? NO . ENDOCRINOLOGY: ARE YOU DIABETIC? NO . OTHER: DO YOU NEED ANY PRESCRIPTIONS? NO . IF YES, PLEASE LIST: ____ . ANY NEW PROBLEMS WITH YOUR MEDICATIONS? NO . WHEN DID YOU LAST EAT? ____ . WHEN DID YOU LAST DRINK? ____ . WHAT DID YOU LAST DRINK? ____ . NAME OF PERSON DRIVING YOU HOME? ____ . DO YOU HAVE ANY OTHER QUESTIONS OR CONCERNS NO . VITAL SIGNS WT REF, HT 61 IN, BMI 0 INDEX, BP 148/78 MM HG, HR 67 /MIN, RR 16 /MIN, TEMP 97.6 F, OXYGEN SAT % 92%, NA INITIALS AW 1449, REVIEWED BY: VDPT REF WG. EXAMINATION : PATIENT IS ALERT O X 3 AND COOPERATIVE. TENDERNESS IN THE LOWER BACK AND PARASPINAL MUSCLE GROUP. LIMPING FROM LEFT LEG. LEFT LEG IS WEAKER THEN THE RIGHT AT EXTENSION AND FLEXION. MRI DONE ON 10/20/15 SHOWS DISC BULGES FROM L2-L3 THROUGH L5-S1, CANAL STENOSIS, AND FACET HYPERTROPHY. ASSESSMENTS INTERVERTEBRAL DISC DISORDERS WITH RADICULOPATHY, LUMBAR REGION - M51.16 (PRIMARY) INTERVERTEBRAL DISC DISORDERS WITH RADICULOPATHY, LUMBOSACRAL REGION - M51.17 SPONDYLOSIS WITHOUT MYELOPATHY OR RADICULOPATHY, LUMBAR REGION - M47.816 SPONDYLOSIS WITHOUT MYELOPATHY OR RADICULOPATHY, LUMBOSACRAL REGION - M47.817 TREATMENT INTERVERTEBRAL DISC DISORDERS WITH RADICULOPATHY, LUMBAR REGION NOTES: WE DISCUSSED SEVERAL ISSUES WITH MRS. VOGEL'S PAIN MANAGEMENT CASE. AT THIS TIME THE PATIENT WILL START TO USE HYDROCODONE INSTEAD OF THE ULTRACET DUE TO GETTING BETTER PAIN RELIEF AND NOT GETTING SICK FROM THE MEDICATION. PATIENT DENIES ABUSE OF ANY MEDICATION, DENIES USE OF ILLEGAL SUBSTANCES, AND STATES HE IS ONLY USING THE MEDICATION FOR PAIN MANAGEMENT. PATIENT WILL SIGN A NARCOTIC AGREEMENT TODAY AND PERFORM A URINE TOXICOLOGY REPORT. PATIENT DOES NOT WANT INTERVENTIONS AT THIS TIME AND WOULD LIKE TO SEE IF THE HYDROCODONE WILL HELP RELIEVE THE PAIN. PATIENT WILL FOLLOW UP IN 3 WEEKS TO DISCUSS HOW THE MEDICATION IS WORKING FOR HER. INSTRUCTIONS WERE GIVEN, QUESTIONS WERE ANSWERED, PATIENT REPORTS UNDERSTANDING AND AGREES WITH THE PLAN. I, RASHID WALSH, DOCUMENTED THE ABOVE INFORMATION ACTING A SCRIBE FOR DR. RIOS. I HAVE REVIEWED THE ABOVE DOCUMENT, WRITTEN BY RASHID VILLANUEVA AND I VERIFY THAT IT IS ACCURATE. OTHERS START HYDROCODONE-ACETAMINOPHEN TABLET, 5-325 MG, 1 TABLET NEEDED, ORALLY, EVERY 6 HRS NEEDED FOR PAIN MDD3, 30 DAY(S), 75, REFILLS 0 PROCEDURE CODES FA211 ESTABILISHED PATIENT [facility] FACILITY CHARGE G8427 DOC MEDS VERIFIED W/PT OR RE G1030 PAIN ASSESS POS TOOL F/U PLAN DOC DISPOSITION & COMMUNICATION FOLLOW UP 3 WEEKS ELECTRONICALLY SIGNED BY MICHEL RIOS MD ON 01/08/2017 AT 11:59 AM EDT DISCLAIMER : THIS IS A VISIT SUMMARY EXTRACTED FROM THE [employer] CHART. IT IS NOT A COPY OF THE [employer] PROGRESS NOTE. MTDD
== END | disposition home or self-care (01) ==
LOC: M PAIN 14:40
PROVIDERS: ATTEND Anesthesiology
DX: G89.29 Other chronic pain (principal); M51.16 Intervertebral disc disorders with radiculopathy, lumbar region; M51.17 Intervertebral disc disorders with radiculopathy, lumbosacral region; M47.816 Spondylosis without myelopathy or radiculopathy, lumbar region; M47.817 Spondylosis without myelopathy or radiculopathy, lumbosacral region; I10 Essential (primary) hypertension; M19.90 Unspecified osteoarthritis, unspecified site; K51.90 Ulcerative colitis, unspecified, without complications; E11.9 Type 2 diabetes mellitus without complications; Z87.442 Personal history of urinary calculi; R32 Unspecified urinary incontinence; L40.9 Psoriasis, unspecified; Z87.19 Personal history of other diseases of the digestive system; Z86.718 Personal history of other venous thrombosis and embolism; Z79.899 Other long term (current) drug therapy; Z79.4 Long term (current) use of insulin; Z79.82 Long term (current) use of aspirin; Z79.52 Long term (current) use of systemic steroids; Z88.0 Allergy status to penicillin; Z88.1 Allergy status to other antibiotic agents; Z88.2 Allergy status to sulfonamides; Z88.8 Allergy status to other drugs, medicaments and biological substances; Z91.013 Allergy to seafood

== ENCOUNTER → 2017-01-09 | Outpatient (CLI) | payer MEDICARE, OTHER ==
[~2017-01-09] MED LIST changes: +ISOVUE-M 300 61% 15ML VIAL (Q9967) As Ordered ONE; +LIDOCAINE 1% SDV INJ 30 ML VIAL As Ordered ONE; +methylPREDNISolone SUSP 40 MG/ML (DEPO-medrol) VIAL (J1030) As Ordered ONE
--- NOTE | 2017-01-09 11:11 | REP ---
PARTIAL LUMBAR SPINE SERIES: Three views. HISTORY: Lumbar epidural steroid injection for pain. 17 seconds of fluoroscopy time is reported. FINDINGS: A sequence of three last image hold fluoro spot radiographs lumbar spine document needle position and contrast injection associated with lumbar epidural injection procedure. Signed by Gilbert Ngo MD 01/09/2017 12:32 P
--- NOTE | 2017-01-23 23:26 | ECWPNPC ---
PATIENT NAME: JOSEPH VOGEL : 1940 GENDER: FEMALE VISIT DATE: 01/09/2017 DISCHARGE DATE: 01/09/17 1043 VISIT LOCKED DATE TIME: PHYSICIAN: MICHEL RIOS RESOURCE: MICHEL RIOS REASON FOR APPOINTMENT 1. LESI HISTORY OF PRESENT ILLNESS HISTORY OF PRESENT ILLNESS: PAIN THE PATIENT DESCRIBES THE PAIN... FALL RISK SCREENING: SCREENING :NO FALLS IN THE PAST YEAR CURRENT MEDICATIONS TAKING ZOFRAN 4 MG TABLET 1 TABLETS ORALLY FOR NAUSEAS EVERY 8 HOURS NEEDED MDD2, NOTES: NONE RECENT TAKING PROPRANOLOL HCL 10 MG TABLET 2 TABLET ORALLY TWICE A DAY, NOTES: 01/08/17 2100 TAKING METFORMIN HCL 500 MG TABLET EXTENDED RELEASE 24 HOUR 1 TAB ORALLY 3 TIMES A DAY, NOTES: 01/08/17 1400 TAKING HYDROCHLOROTHIAZIDE 25 25 MG TABLET 1 TAB(S) ORAL DAILY, NOTES: 01/08/17 0900 TAKING BENAZEPRIL HCL 20 MG TABLET 1 TAB(S) ORALLY DAILY, NOTES: 01/08/17 0900 TAKING LEVEMIR 52 SOLUTION 60 UNITS UNITS/SUBCUTANEOUS ONCE DAILY, NOTES: 60 UNITS 01/08/17 1500 TAKING HUMALOG SLIDING SCALE SOLUTION DIRECTED SUBCUTANEOUS , NOTES: 10 UNITS 01/08/17 1600 TAKING TYLENOL 325 MG TABLET 2 TABLET NEEDED ORALLY EVERY 6 HRS, NOTES: NONE RECENT TAKING PREDNISONE 10 MG TABLET 1 TAB(S) ORALLY DAILY, NOTES: 01/08/17 0900 TAKING ASPIR-81 81 MG TABLET DELAYED RELEASE 1 TABLET ORALLY ONCE A DAY, NOTES: 01/07 TAKING BENTYL 10 MG CAPSULE ORALLY PRN, NOTES: NONE RECENT TAKING CLOTRIMAZOLE-BETAMETHASONE 1-0.05 % CREAM 1 APPLICATION TO AFFECTED AREA EXTERNALLY TO GROIN TWICE A DAY, NOTES: 01/08/17 1400 TAKING HYDROCODONE-ACETAMINOPHEN 5-325 MG TABLET 1 TABLET NEEDED ORALLY EVERY 6 HRS NEEDED FOR PAIN MDD3, NOTES: 01/08/17 2359 NOT-TAKING TRAMADOL-ACETAMINOPHEN 37.5-325 MG TABLET 1 TABLETS NEEDED FOR PAIN ORALLY EVERY 4 HRS MDD4 NOT-TAKING ULTRACET 37.5-325 MG TABLET 2 TABLETS NEEDED ORALLY EVERY 6 HRS PRN FOR PAIN MDD6 NOT-TAKING TRAMADOL HCL 50 MG TABLET 1 TAB ORALLY EVERY 6 HOURS NEEDED/MMD#4 NOT-TAKING GABAPENTIN 100 MG CAPSULE DIRECTED ORALLY FOR PAIN THREE TIMES A DAY NOT-TAKING OXYBUTYNIN CHLORIDE 5 MG TABLET 1 TABLET ORALLY TWICE A DAY MEDICATION LIST REVIEWED AND RECONCILED WITH THE PATIENT PAST MEDICAL HISTORY HYPERTENSION ARTHRITIS ULCERATIVE COLITIS 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 CONSTITUTIONAL: ANY CHANGE IN YOUR MEDICAL CONDITION? NO . CHILLS NO . FEVER NO . INFECTION: DO YOU HAVE NEW INFECTIONS? NO . DO YOU HAVE HISTORY OF MRSA? NO . MUSCULOSKELETAL: ANY NEW PATTERNS OF PAIN OR NUMBNESS? YES, PAIN ACROSS LEFT LOW BACK DOWN LEFT LEG. . GASTROENTEROLOGY: ANY NEW CHANGE IN BOWEL CONTROL? NO . GENITOURINARY: ANY NEW CHANGE IN BLADDER CONTROL? NO . IS THERE A CHANCE YOU COULD BE ? NO . HEMATOLOGY/LYMPH: DO YOU TAKE ANY BLOOD THINNERS? (FOR EXAMPLE- COUMADIN, PLAVIX, AGGRENOX, PLATEL, PRADAXA, OR XARELTO) NO . WHEN WAS YOUR LAST DOSE? DATE: TIME: . NEUROLOGY: HAVE YOU FALLEN IN THE PAST 6 MONTHS? YES . ANY NEW EXTREMITY NUMBNESS OR WEAKNESS? NO . CARDIOLOGY: DO YOU HAVE A PACEMAKER OR DEFIBRILLATOR? NO . RESPIRATORY: HAVE YOU BEEN SICK IN THE PAST WEEK? NO . FEVER NO . FLU LIKE SYMPTOMS? NO . COUGH NO . INTEGUMENTARY: DO YOU HAVE ANY RASHES OR OPEN SORES? NO . ALLERGIC/IMMUNO: ARE YOU ALLERGIC TO SHELLFISH OR IV DYE? NO . ANY NEW ALLERGIES? NO . PSYCHIATRIC: DO YOU HAVE THOUGHTS OF HURTING YOURSELF OR SOMEONE ELSE? NO . ARE YOU ABUSED, NEGLECTED, OR IN AN UNSAFE ENVIRONMENT? NO . ENDOCRINOLOGY: ARE YOU DIABETIC? YES, FSBS 124 @ 0850 THIS MORNING . OTHER: DO YOU NEED ANY PRESCRIPTIONS? NO . IF YES, PLEASE LIST: ____ . ANY NEW PROBLEMS WITH YOUR MEDICATIONS? NO . WHEN DID YOU LAST EAT? 1930 . WHEN DID YOU LAST DRINK? 1929 . WHAT DID YOU LAST DRINK? MILK . NAME OF PERSON DRIVING YOU HOME? ANSON . DO YOU HAVE ANY OTHER QUESTIONS OR CONCERNS NO . VITAL SIGNS WT 130.4 LBS, HT 61 IN, BMI 24.64 INDEX, BP 147/70 MM HG, HR 80 /MIN, RR 16 /MIN, TEMP 97.2 F, OXYGEN SAT % 94%, NA INITIALS SC 09:03, REVIEWED BY: LS. ASSESSMENTS INTERVERTEBRAL DISC DISORDERS WITH RADICULOPATHY, LUMBAR REGION - M51.16 (PRIMARY) PROCEDURES PRE PROCEDURE DIAGNOSIS LUMBAR SPINAL STENOSIS POST PROCEDURE DIAGNOSIS LUMBAR SPINAL STENOSIS PROCEDURE LUMBAR EPIDURAL STEROID INJECTION UNDER FLUOROSCOPIC GUIDANCE SURGEON DR. MICHEL RIOS ENVIRONMENTAL PROTECTION GEOLOGIST NONE ANESTHESIA LOCAL PRE PROCEDURE NOTE THE PATIENT HAS A HISTORY OF CHRONIC LOW BACK PAIN. I EVALUATED THE PATIENT AND REVIEWED THE CHART. I WENT OVER THE RISKS, ALTERNATIVES, AND BENEFITS ASSOCIATED WITH THIS PROCEDURE. THE PATIENT WOULD LIKE TO PROCEED AND GIVE CONSENT TO PERFORMED THE PROCEDURE. THE PATIENT DENIES UNEXPLAINABLE WEIGHT LOSS, FEVER, CHILLS, OR NEW CHANGES IN URINARY OR BOWEL CONTROL. DESCRIPTION OF PROCEDURE THE PATIENT WAS BROUGHT TO THE PROCEDURE ROOM AND PLACED IN THE PRONE POSITION. THE LUMBOSACRAL AREA WAS CLEANED WITH BETADINE SOLUTION AND DRAPED ASEPTICALLY. THE PROCEDURE WAS DONE UNDER STERILE CONDITIONS. I CHECKED LATERALITY AND THE LEVEL WHERE THE PROCEDURE WAS GOING TO BE PERFORMED WITH THE PATIENT AND THE SUPPORTING STAFF AT THE MOMENT OF THE TIME OUT IN THE PROCEDURE ROOM. UNDER FLUOROSCOPIC GUIDANCE, THE TARGET POINT WAS SELECTED AT THE INTERLAMINAR LEVEL OF L4-L5. LIDOCAINE WAS USED TO NUMB THE SKIN AND THE SUBCUTANEOUS TISSUE BELOW IT. EPIDURAL TUOHY NEEDLE, 17-GAUGE, WAS ADVANCED UNDER FLUOROSCOPIC GUIDANCE AND FOLLOWING PATIENT FEEDBACK UNTIL THE EPIDURAL SPACE WAS REACHED, 7 CM DEEP INTO THE SKIN BY THE LOSS OF RESISTANCE TECHNIQUE. ISOVUE M DYE 30%, 0.25 ML, WAS INJECTED SHOWING ADEQUATE SPREAD OF THE DYE. THEN, A SOLUTION OF 3 ML OF NORMAL SALINE WITH DEPO-MEDROL 60 MG WAS INJECTED SLOWLY FOLLOWING PATIENT FEEDBACK. THERE WAS NO EVIDENCE OF BLOOD, PARESTHESIA OR CEREBROSPINAL FLUID DURING THE PROCEDURE. THE PATIENT WAS SENT TO THE RECOVERY ROOM. THE PATIENT WAS MOVING THE EXTREMITIES AND DOING WELL. THERE WAS NO COMPLICATION DURING THE PROCEDURE. FLUOROSCOPY TIME WAS 17 SECONDS. POST PROCEDURE NOTE THE PATIENT WILL BE SEEN IN A FOLLOW UP IN THE NEXT FEW WEEKS. INSTRUCTIONS WERE GIVEN, QUESTIONS WERE ANSWERED, AND THE PATIENT EXPRESSED UNDERSTANDING AND AGREES WITH THE PLAN. I EVERETT VILLATORO DOCUMENTED THE ABOVE INFORMATION ACTING A FENCE SETTER FOR DR. RIOS. I HAVE REVIEWED THE ABOVE DOCUMENT WRITTEN BY EVEERTT VILLATORO SCRIBKimi AND I VERIFY THAT IT IS ACCURATE. DIAGNOSTIC IMAGING [facility] FLUORO GUIDE SPINE INJECTION (PAIN)[id number] PROCEDURE CODES 51445 LUMBAR/SACRAL W/ IMAGING 6045F RADXPS IN END [id number] PXD DISPOSITION & COMMUNICATION FOLLOW UP 3 WEEKS ELECTRONICALLY SIGNED BY MICHEL RIOS MD ON 01/23/2017 AT 08:18 PM EDT DISCLAIMER : THIS IS A VISIT SUMMARY EXTRACTED FROM THE [employer] CHART. IT IS NOT A COPY OF THE [employer] PROGRESS NOTE. DENY
== END | disposition home or self-care (01) ==
LOC: M PAIN 08:45
PROVIDERS: ATTEND Anesthesiology
DX: G89.29 Other chronic pain (principal); M51.16 Intervertebral disc disorders with radiculopathy, lumbar region; I10 Essential (primary) hypertension; M19.90 Unspecified osteoarthritis, unspecified site; E11.9 Type 2 diabetes mellitus without complications; R32 Unspecified urinary incontinence; K51.90 Ulcerative colitis, unspecified, without complications; Z87.442 Personal history of urinary calculi; L40.9 Psoriasis, unspecified; Z71.9 Counseling, unspecified; Z79.899 Other long term (current) drug therapy; Z86.718 Personal history of other venous thrombosis and embolism; Z79.4 Long term (current) use of insulin; Z79.82 Long term (current) use of aspirin; Z79.52 Long term (current) use of systemic steroids; Z88.0 Allergy status to penicillin; Z88.1 Allergy status to other antibiotic agents; Z88.2 Allergy status to sulfonamides; Z88.8 Allergy status to other drugs, medicaments and biological substances; Z91.013 Allergy to seafood
CPT/HCPCS: 62323; J1030; Q9967

== ENCOUNTER → 2017-01-17 | Outpatient (CLI) | payer MEDICARE, OTHER ==
[~2017-01-17] MED LIST changes: -ISOVUE-M 300 61% 15ML VIAL (Q9967) As Ordered ONE; -LIDOCAINE 1% SDV INJ 30 ML VIAL As Ordered ONE; -methylPREDNISolone SUSP 40 MG/ML (DEPO-medrol) VIAL (J1030) As Ordered ONE
[2017-01-17 09:01] LABS: BASO # 0.1 K/mm3 (0.0-0.2); BASO % 0.5 % (0.0-1.0); EOS # 0.2 K/mm3 (0.0-0.50); EOS % 1.7 % (0.0-3.0); LYMPH # 1.2 K/mm3 (1.5-4.5); LYMPH % 10.1 % (24.0-44.0); MEAN CORPUSCULAR HEMOGLOBIN 32.2 pg (27.0-33.0); MEAN CORPUSCULAR HGB CONC 33.7 g/dl (32.0-36.5); MEAN CORPUSCULAR VOLUME 95.5 fl (80.0-96.0); MONO # 0.9 K/mm3 (0.0-0.8); NEUTROPHILS # 9.7 K/mm3 (1.8-7.7); NEUTROPHILS % 79.4 % (36.0-66.0); RED CELL DISTRIBUTION WIDTH 13.2 % (11.5-14.5); WHITE BLOOD COUNT 12.2 K/mm3 (4.0-10.0)
[2017-01-17 09:31] LABS: ALBUMIN 3.1 GM/DL (3.2-5.2); ALBUMIN/GLOBULIN RATIO 0.91 (1.00-1.93); BILIRUBIN,TOTAL 0.6 MG/DL (0.2-1.0); CALCIUM LEVEL 9.2 MG/DL (8.8-10.2); CREATININE FOR GFR 1.08 MG/DL (0.55-1.02); FREE T4 1.07 NG/DL (0.76-1.46); GLOMERULAR FILTRATION RATE 52.4 (>39); TOTAL PROTEIN 6.5 GM/DL (6.4-8.2)
== END ==
LOC: M LAB 08:20
PROVIDERS: ATTEND Nurse Practitioner Adult Health
DX: E11.9 Type 2 diabetes mellitus without complications (principal); I10 Essential (primary) hypertension; E78.00 Pure hypercholesterolemia, unspecified; Z79.899 Other long term (current) drug therapy; M81.0 Age-related osteoporosis without current pathological fracture; N81.9 Female genital prolapse, unspecified

== ENCOUNTER → 2017-02-24 | Outpatient (CLI) | payer MEDICARE, OTHER ==
--- NOTE | 2017-03-01 01:15 | ECWPNPC ---
PATIENT NAME: JOSEPH VOGEL : 1940 GENDER: FEMALE VISIT DATE: 02/24/2017 DISCHARGE DATE: 02/24/17956 VISIT LOCKED DATE TIME: PHYSICIAN: MICHEL RIOS RESOURCE: MICHEL RIOS REASON FOR APPOINTMENT 1. LOW BACK PAIN HISTORY OF PRESENT ILLNESS HISTORY OF PRESENT ILLNESS: PAIN THE PATIENT DESCRIBES THE PAIN... 76 YEAR OLD FEMALE PATIENT WITH HISTORY OF CHRONIC LOW BACK PAIN. PATIENT DESCRIBES THE PAIN BURNING WITH THE PAIN COMING AND GOING AND A PAIN SCORE OF 5-6 TODAY. PATIENT RECEIVED A LUMBAR EPIDURAL ON 01/09/17 AND REPORTS DOING BETTER BUT REPORTS THE PAIN IS NOW ON THE RIGHT SIDE. MRS. VOGEL STATES THAT THE EPIDURAL INCREASED THE PATIENTS MOBILITY AND FUNCTIONALITY. PATIENT REPORTS SHE IS STILL UNABLE TO SIT FOR LONG PERIODS OF TIME UNLESS SHE HAS SOME TYPE OF SUPPORT ON HER BACK. MRS. VOGEL STATES FIRST THING IN THE MORNING IT IS VERY DIFFICULT FOR HER TO STAND HER LEGS FEEL WEAK. PATIENT DENIES UNEXPLAINABLE WEIGHT LOSS, FEVER, CHILLS, NEW CHANGES ON HER URINARY OR BOWEL CONTROL. FALL RISK SCREENING: SCREENING :NO FALLS IN THE PAST YEAR CURRENT MEDICATIONS TAKING LEVEMIR 52 SOLUTION 60 UNITS UNITS/SUBCUTANEOUS ONCE DAILY, NOTES: 60 UNITS 01/08/17 1500 TAKING HUMALOG SLIDING SCALE SOLUTION DIRECTED SUBCUTANEOUS , NOTES: 10 UNITS 01/08/17 1600 TAKING TYLENOL 325 MG TABLET 2 TABLET NEEDED ORALLY EVERY 6 HRS, NOTES: NONE RECENT TAKING PREDNISONE 10 MG TABLET 1 TAB(S) ORALLY DAILY, NOTES: 01/08/17 0900 TAKING ASPIR-81 81 MG TABLET DELAYED RELEASE 1 TABLET ORALLY ONCE A DAY, NOTES: 01/07 TAKING BENTYL 10 MG CAPSULE ORALLY PRN, NOTES: NONE RECENT TAKING CLOTRIMAZOLE-BETAMETHASONE 1-0.05 % CREAM 1 APPLICATION TO AFFECTED AREA EXTERNALLY TO GROIN TWICE A DAY, NOTES: 01/08/17 1400 TAKING HYDROCODONE-ACETAMINOPHEN 5-325 MG TABLET 1 TABLET NEEDED ORALLY EVERY 6 HRS NEEDED FOR PAIN MDD3, NOTES: 01/08/17 2359 UNKNOWN ZOFRAN 4 MG TABLET 1 TABLETS ORALLY FOR NAUSEAS EVERY 8 HOURS NEEDED MDD2, NOTES: NONE RECENT UNKNOWN PROPRANOLOL HCL 10 MG TABLET 2 TABLET ORALLY TWICE A DAY, NOTES: 01/08/17 2100 UNKNOWN METFORMIN HCL 500 MG TABLET EXTENDED RELEASE 24 HOUR 1 TAB ORALLY 3 TIMES A DAY, NOTES: 01/08/17 1400 UNKNOWN HYDROCHLOROTHIAZIDE 25 25 MG TABLET 1 TAB(S) ORAL DAILY, NOTES: 01/08/17 0900 UNKNOWN BENAZEPRIL HCL 20 MG TABLET 1 TAB(S) ORALLY DAILY, NOTES: 01/08/17 0900 UNKNOWN TRAMADOL-ACETAMINOPHEN 37.5-325 MG TABLET 1 TABLETS NEEDED FOR PAIN ORALLY EVERY 4 HRS MDD4 UNKNOWN ULTRACET 37.5-325 MG TABLET 2 TABLETS NEEDED ORALLY EVERY 6 HRS PRN FOR PAIN MDD6 UNKNOWN TRAMADOL HCL 50 MG TABLET 1 TAB ORALLY EVERY 6 HOURS NEEDED/MMD#4 UNKNOWN GABAPENTIN 100 MG CAPSULE DIRECTED ORALLY FOR PAIN THREE TIMES A DAY UNKNOWN OXYBUTYNIN CHLORIDE 5 MG TABLET 1 TABLET ORALLY TWICE A DAY MEDICATION LIST REVIEWED AND RECONCILED WITH THE PATIENT PAST MEDICAL HISTORY HYPERTENSION ARTHRITIS ULCERATIVE COLITIS 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 NO. CAFFEINE CAFFEINE USE? NO . SEXUAL HX HAD SEX IN THE LAST 12 MONTHS (VAGINAL, ORAL, OR ANAL)?NO HAVE YOU EVER HAD AN STD?NO OCCUPATION: RETIRED. DIET: REGULAR. EXERCISE: NO REGULAR EXERCISE. MARITAL STATUS: . OTHERS AT HOME: SPOUSE. PETS: 2 DOGS. RESTORATIONISM [id number] FAITH LANGUAGE LANGUAGES SPOKEN:[place] LEARNING BARRIERS / SPECIAL NEEDS CHANGE FROM LAST VISIT?NO BARRIERS TO LEARNING?NO HEARING IMPAIRED?NO VISION IMPAIRED?YES :CORRECTIVE LENSES COGNITIVELY IMPAIRED?NO READINESS TO LEARN?YES LEARNING PREFERENCES?NO LEARNING CAPABILITIES PRESENT?YES EMOTIONAL BARRIERS?NO SPECIAL DEVICES?NO RUBY ON RAILS DEVELOPER NEEDED?NO PSYCHOLOGICAL HX TREATMENT NO . PAIN CLINIC PFS, CLERGY, PUBLIC HEALTH REFERRALS PFS REFERRAL NEEDED?NO CLERGY REFERRAL NEEDED?NO PUBLIC HEALTH REFERRAL NEEDED?NO WAS THE PROVIDER NOTIFIED OF ANY PERTINENT INFO?YES HAS THE PATIENT BEEN EDUCATED REGARDING HIS/HER PLAN OF CARE?YES HAS THE PATIENT BEEN EDUCATED REGARDING PAIN, THE RISK FOR PAIN, THE IMPORTANCE OF EFFECTIVE PAIN MANAGEMENT, AND THE PAIN ASSESSMENT PROCESS?YES REVIEWED BY: MAIN. PATIENT: ____. ADVANCE DIRECTIVES HEALTH CARE PROXY?NO POWER OF AGENCY SALES DEVELOPMENT ASSOCIATE?NO REVIEW OF SYSTEMS REVIEWED BY: PROVIDER: MICHEL RIOS MD . CONSTITUTIONAL: ANY CHANGE IN YOUR MEDICAL CONDITION? NO . CHILLS NO . FEVER NO . INFECTION: DO YOU HAVE NEW INFECTIONS? NO . DO YOU HAVE HISTORY OF MRSA? NO . MUSCULOSKELETAL: ANY NEW PATTERNS OF PAIN OR NUMBNESS? YES . GASTROENTEROLOGY: ANY NEW CHANGE IN BOWEL CONTROL? YES . GENITOURINARY: ANY NEW CHANGE IN BLADDER CONTROL? NO . IS THERE A CHANCE YOU COULD BE ? NO . HEMATOLOGY/LYMPH: DO YOU TAKE ANY BLOOD THINNERS? (FOR EXAMPLE- COUMADIN, PLAVIX, AGGRENOX, PLATEL, PRADAXA, OR XARELTO) NO . WHEN WAS YOUR LAST DOSE? DATE: TIME: . NEUROLOGY: HAVE YOU FALLEN IN THE PAST 6 MONTHS? NO . ANY NEW EXTREMITY NUMBNESS OR WEAKNESS? NO . CARDIOLOGY: DO YOU HAVE A PACEMAKER OR DEFIBRILLATOR? NO . RESPIRATORY: HAVE YOU BEEN SICK IN THE PAST WEEK? NO . FEVER NO . FLU LIKE SYMPTOMS? NO . COUGH NO . INTEGUMENTARY: DO YOU HAVE ANY RASHES OR OPEN SORES? NO . ALLERGIC/IMMUNO: ARE YOU ALLERGIC TO SHELLFISH OR IV DYE? NO . ANY NEW ALLERGIES? NO . PSYCHIATRIC: DO YOU HAVE THOUGHTS OF HURTING YOURSELF OR SOMEONE ELSE? NO . ARE YOU ABUSED, NEGLECTED, OR IN AN UNSAFE ENVIRONMENT? NO . ENDOCRINOLOGY: ARE YOU DIABETIC? YES . OTHER: DO YOU NEED ANY PRESCRIPTIONS? NO . IF YES, PLEASE LIST: ____ . ANY NEW PROBLEMS WITH YOUR MEDICATIONS? NO . WHEN DID YOU LAST EAT? ____ . WHEN DID YOU LAST DRINK? ____ . WHAT DID YOU LAST DRINK? ____ . NAME OF PERSON DRIVING YOU HOME? ____ . DO YOU HAVE ANY OTHER QUESTIONS OR CONCERNS NO . VITAL SIGNS WT 135.4 LBS, HT 61 IN, BMI 25.58 INDEX, BP 156/82 MM HG, HR 76 /MIN, RR 18 /MIN, TEMP 98.1 F, OXYGEN SAT % 94, SAFE IN ENV? (Y/N) YES, REVIEWED BY: WILBER. EXAMINATION : PATIENT IS ALERT O X 3 AND COOPERATIVE. TENDERNESS IN THE LOWER BACK AND PARASPINAL MUSCLE GROUP. LIMPING FROM LEFT LEG. RIGHT LEG IS WEAKER THEN THE LEFT AT EXTENSION AND FLEXION. MRI DONE ON 10/20/15 SHOWS DISC BULGES FROM L2-L3 THROUGH L5-S1, CANAL STENOSIS, AND FACET HYPERTROPHY. ASSESSMENTS INTERVERTEBRAL DISC DISORDER WITH RADICULOPATHY OF LUMBAR REGION - M51.16 (PRIMARY) INTERVERTEBRAL DISC DISORDER WITH RADICULOPATHY OF LUMBOSACRAL REGION - M51.17 SPONDYLOSIS OF LUMBAR REGION WITHOUT MYELOPATHY OR RADICULOPATHY - M47.816 SPONDYLOSIS OF LUMBOSACRAL REGION WITHOUT MYELOPATHY OR RADICULOPATHY - M47.817 TREATMENT INTERVERTEBRAL DISC DISORDER WITH RADICULOPATHY OF LUMBAR REGION NOTES: LUMBAR EPIDURAL STEROID INJECTION. CLINICAL NOTES: WE DISCUSSED SEVERAL ISSUES WITH MRS. VOGEL'S PAIN MANAGEMENT CASE. AT THIS TIME THE PATIENT WILL CONTINUE WITH THE SAME MEDICATION REGIME BEFORE. MRS. VOGEL IS USING THE NORCO FOR THE SOMATIC PAIN AND REPORTS IT DOES NOT MAKE HER SICK. PATIENT WAS REMINDED THAT SHE IS ABLE TO USE ANOTHER TABLET AFTER 4 HOURS IF THE PAIN IS STILL SEVERE. PATIENT DENIES ABUSE OF ANY MEDICATION, DENIES USE OF ILLEGAL MEDICATION, AND STATES SHE IS ONLY USING THE MEDICATION FOR PAIN MANAGEMENT. PATIENT RECEIVED A LUMBAR EPIDURAL AND REPORTS THE LEFT SIDE DOING A LOT BETTER BUT NOW SHE IS HAVING A PAIN DOWN THE RIGHT SIDE AND DOWN THE RIGHT LEG. WE DISCUSSED MOVING FORWARD WITH ANOTHER LUMBAR EPIDURAL DUE TO THE RIGHT LOWER BACK AND THE RIGHT LEG PAIN. WE DISCUSSED THE RISKS, BENEFITS, AND ALTERNATIVES OF THE INJECTION AND THE PATIENT WOULD LIKE TO PROCEED. INSTRUCTIONS WERE GIVEN, QUESTIONS WERE ANSWERED, PATIENT REPORTS UNDERSTANDING AND AGREES WITH THE PLAN. I, RASHID WALSH, DOCUMENTED THE ABOVE INFORMATION ACTING A SCRIBE FOR DR. RIOS. I HAVE REVIEWED THE ABOVE DOCUMENT, WRITTEN BY RASHID VILLANUEVA AND I VERIFY THAT IT IS ACCURATE. PREVENTIVE MEDICINE LUMBAR EPIDURAL INSTRUCTIONS REVEIWED AND GIVEN TO PT. PROCEDURE CODES FA211 ESTABILISHED PATIENT [facility] FACILITY CHARGE G0252 DOC MEDS VERIFIED W/PT OR RE X7911 PAIN ASSESS POS TOOL F/U PLAN DOC DISPOSITION & COMMUNICATION FOLLOW UP LESI AFTER APPROVAL ELECTRONICALLY SIGNED BY MICHEL RIOS MD ON 02/28/2017 AT 09:35 AM EDT DISCLAIMER : THIS IS A VISIT SUMMARY EXTRACTED FROM THE [employer] CHART. IT IS NOT A COPY OF THE [employer] PROGRESS NOTE. DENY
== END ==
LOC: M PAIN 08:30
PROVIDERS: ATTEND Anesthesiology
DX: M51.16 Intervertebral disc disorders with radiculopathy, lumbar region (principal); M51.17 Intervertebral disc disorders with radiculopathy, lumbosacral region; M47.816 Spondylosis without myelopathy or radiculopathy, lumbar region; M47.817 Spondylosis without myelopathy or radiculopathy, lumbosacral region; G89.29 Other chronic pain; M54.5 Low back pain; I10 Essential (primary) hypertension; E11.9 Type 2 diabetes mellitus without complications; Z79.82 Long term (current) use of aspirin; Z79.891 Long term (current) use of opiate analgesic; Z79.899 Other long term (current) drug therapy; Z88.0 Allergy status to penicillin; Z88.2 Allergy status to sulfonamides; Z88.1 Allergy status to other antibiotic agents; Z88.8 Allergy status to other drugs, medicaments and biological substances; Z91.013 Allergy to seafood

== ENCOUNTER → 2017-04-21 | Outpatient (CLI) | payer MEDICARE, OTHER ==
--- NOTE | 2017-05-12 01:28 | ECWPNPC ---
PATIENT NAME: JOSEPH VOGEL : 1940 GENDER: FEMALE VISIT DATE: 04/21/2017 DISCHARGE DATE: 04/21/1757 VISIT LOCKED DATE TIME: PHYSICIAN: JUAN STERLING RESOURCE: JUAN STERLING REASON FOR APPOINTMENT 1. BACK AND LEGS HISTORY OF PRESENT ILLNESS HISTORY OF PRESENT ILLNESS: HERE FOR POST PROCEDURE F/U.HAD LESI L4/5 ON 03-15-17.REPORTING SOME IMPROVEMENT IN PAIN.RATING PAIN VAS 8/10.STATES SEVERE EPISODES OF PAIN ARE LESS FREQUENT SINCE INJECTION.DISCUSSED MEDICATION AND TREATMENT OPTIONS. PAIN THE PATIENT DESCRIBES THE PAIN... FALL RISK SCREENING: SCREENING :NO FALLS IN THE PAST YEAR CURRENT MEDICATIONS TAKING LEVEMIR 52 SOLUTION 60 UNITS UNITS/SUBCUTANEOUS ONCE DAILY TAKING HUMALOG SLIDING SCALE SOLUTION DIRECTED SUBCUTANEOUS TAKING TYLENOL 325 MG TABLET 2 TABLET NEEDED ORALLY EVERY 6 HRS TAKING PREDNISONE 10 MG TABLET 1 TAB(S) ORALLY DAILY TAKING ASPIR-81 81 MG TABLET DELAYED RELEASE 1 TABLET ORALLY ONCE A DAY TAKING BENTYL 10 MG CAPSULE ORALLY PRN TAKING HYDROCODONE-ACETAMINOPHEN 5-325 MG TABLET 1 TABLET NEEDED ORALLY EVERY 6 HRS NEEDED FOR PAIN MDD3 TAKING PROPRANOLOL HCL 10 MG TABLET 2 TABLET ORALLY TWICE A DAY TAKING METFORMIN HCL 500 MG TABLET EXTENDED RELEASE 24 HOUR 1 TAB ORALLY 3 TIMES A DAY TAKING HYDROCHLOROTHIAZIDE 25 25 MG TABLET 1 TAB(S) ORAL DAILY TAKING BENAZEPRIL HCL 20 MG TABLET 1 TAB(S) ORALLY DAILY TAKING CLOTRIMAZOLE-BETAMETHASONE 1-0.05 % CREAM 1 APPLICATION TO AFFECTED AREA EXTERNALLY TO GROIN TWICE A DAY MEDICATION LIST REVIEWED AND RECONCILED WITH THE PATIENT PAST MEDICAL HISTORY HYPERTENSION ARTHRITIS ULCERATIVE COLITIS 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 NO SIGN OF AR DVT LOWER LEFT LEG POP USING A GELHORN # 3 SEVERE ARTHRITIS BULGING DISCS OF THE SPINE PSORIASIS OSTEOPOROSIS ALLERGIES PENICILLIN (FOR ALLERGIES USE ONLY): ANAPHYLAXIS: ALLERGY SULFA (FOR ALLERGY USE ONLY): HIVES: ALLERGY CIPRO: SWELLING OF MOUTH: ALLERGY NUBAIN: VOMITING: ALLERGY SALMON: TONGUE SWELLING: ALLERGY SURGICAL HISTORY KIDNEY STONE REMOVED 2013 BILAT CATARACT SURGERY 2013 SOCIAL HISTORY GENERAL: TOBACCO USE ARE YOU A:NONSMOKER NEVER SMOKER BMI CARE GOAL FOLLOW-UP ABOVE NORMAL BMI FOLLOW-UPLIFESTYLE EDUCATION REGARDING DIET ALCOHOL SCREENING DID YOU HAVE A DRINK CONTAINING ALCOHOL IN THE PAST YEAR?NO POINTS0 INTERPRETATIONNEGATIVE RECREATIONAL DRUG USE DRUG USE? NO. CAFFEINE CAFFEINE USE? NO . SEXUAL HX HAD SEX IN THE LAST 12 MONTHS (VAGINAL, ORAL, OR ANAL)?NO HAVE YOU EVER HAD AN STD?NO HIV / HEP-C SCREENING HIV TEST OFFERED TO PATIENT:NO HEP-C TEST OFFERED TO PATIENT:NO OCCUPATION: RETIRED. DIET: REGULAR. EXERCISE: NO REGULAR EXERCISE. MARITAL STATUS: . OTHERS AT HOME: SPOUSE. PETS: 2 DOGS. CONFUCIANIST [id number] SABIANISM LANGUAGE LANGUAGES SPOKEN:[place] EDUCATION LEVEL OF EDUCATION:COLLEGE LEARNING BARRIERS / SPECIAL NEEDS CHANGE FROM LAST VISIT?NO BARRIERS TO LEARNING?NO HEARING IMPAIRED?NO VISION IMPAIRED?YES :CORRECTIVE LENSES COGNITIVELY IMPAIRED?NO READINESS TO LEARN?YES LEARNING PREFERENCES?NO LEARNING CAPABILITIES PRESENT?YES EMOTIONAL BARRIERS?NO SPECIAL DEVICES?NO EKG/ECG TECHNICIAN NEEDED?NO PSYCHOLOGICAL HX TREATMENT NO . PAIN CLINIC PFS, CLERGY, PUBLIC HEALTH REFERRALS PFS REFERRAL NEEDED?NO CLERGY REFERRAL NEEDED?NO PUBLIC HEALTH REFERRAL NEEDED?NO WAS THE PROVIDER NOTIFIED OF ANY PERTINENT INFO?YES HAS THE PATIENT BEEN EDUCATED REGARDING HIS/HER PLAN OF CARE?YES HAS THE PATIENT BEEN EDUCATED REGARDING PAIN, THE RISK FOR PAIN, THE IMPORTANCE OF EFFECTIVE PAIN MANAGEMENT, AND THE PAIN ASSESSMENT PROCESS?YES REVIEWED BY: MAIN. PATIENT: ____. ADVANCE DIRECTIVES HEALTH CARE PROXY?NO POWER OF PATENT AGENT?NO HOSPITALIZATION/MAJOR DIAGNOSTIC PROCEDURE KIDNEY STONE AND SEPSIS 2013 REVIEW OF SYSTEMS REVIEWED BY: PROVIDER: JUAN JAY . CONSTITUTIONAL: ANY CHANGE IN YOUR MEDICAL CONDITION? NO . CHILLS NO . FEVER NO . INFECTION: DO YOU HAVE NEW INFECTIONS? NO . DO YOU HAVE HISTORY OF MRSA? NO . MUSCULOSKELETAL: ANY NEW PATTERNS OF PAIN OR NUMBNESS? NO, PT STATES LESI 02/2017, PRE PROCEDURE PAIN WAS 8/10, POST PAIN WAS 0/10. TODAY PAIN IS 7-8/10 . GASTROENTEROLOGY: ANY NEW CHANGE IN BOWEL CONTROL? NO . GENITOURINARY: ANY NEW CHANGE IN BLADDER CONTROL? NO . IS THERE A CHANCE YOU COULD BE ? NO . HEMATOLOGY/LYMPH: DO YOU TAKE ANY BLOOD THINNERS? (FOR EXAMPLE- COUMADIN, PLAVIX, AGGRENOX, PLATEL, PRADAXA, OR XARELTO) NO . WHEN WAS YOUR LAST DOSE? DATE: TIME: . NEUROLOGY: HAVE YOU FALLEN IN THE PAST 6 MONTHS? NO . ANY NEW EXTREMITY NUMBNESS OR WEAKNESS? NO . CARDIOLOGY: DO YOU HAVE A PACEMAKER OR DEFIBRILLATOR? NO . RESPIRATORY: HAVE YOU BEEN SICK IN THE PAST WEEK? NO . FEVER NO . FLU LIKE SYMPTOMS? NO . COUGH NO . INTEGUMENTARY: DO YOU HAVE ANY RASHES OR OPEN SORES? NO . ALLERGIC/IMMUNO: ARE YOU ALLERGIC TO SHELLFISH OR IV DYE? NO . ANY NEW ALLERGIES? NO . PSYCHIATRIC: DO YOU HAVE THOUGHTS OF HURTING YOURSELF OR SOMEONE ELSE? NO . ARE YOU ABUSED, NEGLECTED, OR IN AN UNSAFE ENVIRONMENT? NO . ENDOCRINOLOGY: ARE YOU DIABETIC? YES . OTHER: DO YOU NEED ANY PRESCRIPTIONS? YES, NORCO . IF YES, PLEASE LIST: ____ . ANY NEW PROBLEMS WITH YOUR MEDICATIONS? NO . WHEN DID YOU LAST EAT? ____ . WHEN DID YOU LAST DRINK? ____ . WHAT DID YOU LAST DRINK? ____ . NAME OF PERSON DRIVING YOU HOME? ____ . DO YOU HAVE ANY OTHER QUESTIONS OR CONCERNS NO . VITAL SIGNS WT 135 LBS, HT 61 IN, BMI 25.51 INDEX, BP 132/75 MM HG, HR 71 /MIN, RR 16 /MIN, TEMP 98.1 F, OXYGEN SAT % 96, REVIEWED BY: EM. EXAMINATION GENERAL EXAMINATION: LUNGS:LUNG SOUNDS ARE CLEAR. HEART:HEART RATE REGULAR. MUSCULOSKELETAL:*, MUSCLE STRENGTH TESTING 5/5 BILATERAL LOWER EXTREMITIES., PALPATION: POSITIVE FOR PAIN OVER L/S SPINE. POSITIVE FOR PAIN OVER L/S PARSPINALS. MRI L/S [id number]-[id number]. ASSESSMENTS SPONDYLOSIS WITHOUT MYELOPATHY OR RADICULOPATHY, LUMBAR REGION - M47.816 (PRIMARY) SPINAL STENOSIS OF LUMBOSACRAL REGION - M48.07 TREATMENT SPONDYLOSIS WITHOUT MYELOPATHY OR RADICULOPATHY, LUMBAR REGION CONTINUE HYDROCODONE-ACETAMINOPHEN TABLET, 5-325 MG, 1 TABLET NEEDED, ORALLY, EVERY 6 HRS NEEDED FOR PAIN MDD3 START CYMBALTA CAPSULE DELAYED RELEASE PARTICLES, 20 MG, 1 CAPSULE, ORALLY, DAILY, 30 DAY(S), 30 CAPSULE, REFILLS 1 NOTES: PATIENT WAS ADVISED TO START A WALKING PROGRAM TO STRENGTHEN LUMBAR PARASPINAL MUSCLES AND IMPROVE MOBILITY. THEY WERE ADVISED THAT THIS WILL IMPROVE WEIGHT LOSS AND ALSO DEPRESSION/FIBROMYALGIA SYMPTOMS. ADVISED TO WALK 5 MINUTES EVERY OTHER DAY ON A FLAT SURFACE. EMPHASIZED THE IMPORTANCE OF DOING THIS CONSISTANTLY AND NOT SPORATICALLY TO AVOID INJURY. PROCEDURE CODES FA211 ESTABILISHED PATIENT [facility] CHARGE G8730 PAIN ASSESS POS TOOL F/U PLAN DOC G8427 DOC MEDS VERIFIED W/PT OR RE DISPOSITION & COMMUNICATION FOLLOW UP 6 WEEKS ELECTRONICALLY SIGNED BY MISTY FERREIRA ON 05/11/2017 AT 04:52 PM EST DISCLAIMER : THIS IS A VISIT SUMMARY EXTRACTED FROM THE [employer] CHART. IT IS NOT A COPY OF THE [employer] PROGRESS NOTE. DENY
== END ==
LOC: M PAIN 08:30
PROVIDERS: ATTEND Nurse Practitioner Family
DX: M47.816 Spondylosis without myelopathy or radiculopathy, lumbar region (principal); M48.07 Spinal stenosis, lumbosacral region; I10 Essential (primary) hypertension; E11.9 Type 2 diabetes mellitus without complications; Z79.82 Long term (current) use of aspirin; Z79.84 Long term (current) use of oral hypoglycemic drugs; Z79.899 Other long term (current) drug therapy; Z79.891 Long term (current) use of opiate analgesic; Z88.0 Allergy status to penicillin; Z88.1 Allergy status to other antibiotic agents; Z88.2 Allergy status to sulfonamides; Z88.8 Allergy status to other drugs, medicaments and biological substances; Z91.013 Allergy to seafood; Z87.442 Personal history of urinary calculi

== ENCOUNTER → 2017-05-09 | Outpatient (CLI) | payer MEDICARE, OTHER ==
[2017-05-09 09:29] LABS: BASO # 0.1 10^3/uL (0.0-0.2); EOS # 0.3 10^3/uL (0.0-0.50); EOS % 2.3 % (0.0-3.0); IMMATURE GRANULOCYTE % 1.3 % (0-0); LYMPH # 1.7 10^3/uL (1.5-4.5); MEAN CORPUSCULAR HEMOGLOBIN 31.5 pg (27.0-33.0); MEAN CORPUSCULAR HGB CONC 32.5 g/dl (32.0-36.5); MEAN CORPUSCULAR VOLUME 96.8 fl (80.0-96.0); MONO % 8.8 % (0.0-5.0); NEUTROPHILS # 8.2 10^3/uL (1.8-7.7); NEUTROPHILS % 71.6 % (36.0-66.0); PLATELET COUNT, AUTOMATED 248 10^3/uL (150-450); RED CELL DISTRIBUTION WIDTH 13.2 % (11.5-14.5); WHITE BLOOD COUNT 11.5 10^3/uL (4.0-10.0)
[2017-05-09 09:55] LABS: ALBUMIN 3.3 GM/DL (3.2-5.2); ALBUMIN/GLOBULIN RATIO 1.03 (1.00-1.93); BILIRUBIN,TOTAL 0.6 MG/DL (0.2-1.0); CALCIUM LEVEL 8.8 MG/DL (8.8-10.2); CREATININE FOR GFR 1.03 MG/DL (0.55-1.02); GLOMERULAR FILTRATION RATE 55.2 (>39); POTASSIUM SERUM 3.6 MEQ/L (3.5-5.1); TOTAL PROTEIN 6.5 GM/DL (6.4-8.2)
== END ==
LOC: M LAB 08:52
PROVIDERS: ATTEND Nurse Practitioner Adult Health
DX: E11.65 Type 2 diabetes mellitus with hyperglycemia (principal); E78.00 Pure hypercholesterolemia, unspecified; Z79.899 Other long term (current) drug therapy

== ENCOUNTER → 2017-06-06 | Outpatient (REF) | payer MEDICARE, OTHER ==
[2017-06-06 13:14] LABS: APPEARANCE, URINE CLOUDY (CLEAR); BACTERIA, URINE AUTO 1+ (NEGATIVE); BILIRUBIN, URINE AUTO NEGATIVE (NEGATIVE); BLOOD, URINE BLOOD 1+ (NEGATIVE); COLOR, URINE YELLOW (YELLOW); GLUCOSE, URINE (UA) AUTO 1+ mg/dL (NEGATIVE); KETONE, URINE AUTO NEGATIVE (NEGATIVE); LEUKOCYTE ESTERASE, URINE AUTO 3+ (NEGATIVE); MUCUS, URINE SMALL (NEGATIVE); NITRITE, URINE AUTO NEGATIVE (NEGATIVE); PROTEIN, URINE AUTO NEGATIVE (NEGATIVE); RBC, URINE AUTO 9 /HPF (0-3); SPECIFIC GRAVITY URINE AUTO 1.017 (1.002-1.035); SQUAMOUS EPITHELIAL CELL UR AU 6 /HPF (0-6); UROBILINOGEN, URINE AUTO 0.2 mg/dL (0.0-2.0); WBC, URINE AUTO 141 /HPF (0-3); YEAST LIKE CELL URINE AUTO SMALL
== END ==
LOC: M SMT 12:47
DX: R39.15 Urgency of urination (principal)
CPT/HCPCS: 81001

== ENCOUNTER → 2017-06-09 | Outpatient (CLI) | payer MEDICARE, OTHER | LOC: M PAIN 08:45 | DX: G89.29 Other chronic pain (principal); M47.816 Spondylosis without myelopathy or radiculopathy, lumbar region; E11.9 Type 2 diabetes mellitus without complications; I10 Essential (primary) hypertension; M19.90 Unspecified osteoarthritis, unspecified site; L40.9 Psoriasis, unspecified; M81.0 Age-related osteoporosis without current pathological fracture; Z79.52 Long term (current) use of systemic steroids; Z79.4 Long term (current) use of insulin; Z79.891 Long term (current) use of opiate analgesic; Z79.899 Other long term (current) drug therapy; Z88.0 Allergy status to penicillin; Z88.2 Allergy status to sulfonamides; Z88.8 Allergy status to other drugs, medicaments and biological substances; Z91.013 Allergy to seafood | CPT/HCPCS: G0463 ==

== ENCOUNTER → 2017-07-13 | Outpatient (CLI) | payer MEDICARE, OTHER | LOC: M PAIN 09:45 | DX: M53.3 Sacrococcygeal disorders, not elsewhere classified (principal); I10 Essential (primary) hypertension; E11.9 Type 2 diabetes mellitus without complications; Z79.4 Long term (current) use of insulin; Z79.82 Long term (current) use of aspirin; Z79.891 Long term (current) use of opiate analgesic; Z79.899 Other long term (current) drug therapy; Z88.8 Allergy status to other drugs, medicaments and biological substances; Z91.013 Allergy to seafood; Z87.442 Personal history of urinary calculi | CPT/HCPCS: G0463 ==

== ENCOUNTER → 2017-07-27 | Outpatient (CLI) | payer MEDICARE, OTHER ==
[~2017-07-27] MED LIST changes: -ASPI1TAB PO; -BENA20TA8 PO; -BENT10CA PO; +BUPIVACAINE HCL 0.25% 30 ML VIAL As Ordered; -DIFL200T PO; -HYDR-3713 PO; -HYDR12.55 PO; -HYDR25TAB PO; -INDE1CAP5 PO; -INSUDET SC; -INSUH10VL SC; -INSUHUMDS SC; +ISOVUE-M 300 61% 15ML VIAL (Q9967) As Ordered; -KEFL500C17 PO; +LIDOCAINE 1% SDV INJ 30 ML VIAL As Ordered; -MACR100C43 PO; -METF500T13 PO; -PRED10PA PO; -PROP60TA14 PO; +TRIAMCINOLONE ACETONIDE SUSP 40 MG/ML VIAL (J3301) As Ordered; -TYLE650T35 PO; -ULTR50TA8 PO
== END ==
LOC: M PAIN 08:45
DX: G89.29 Other chronic pain (principal); M46.1 Sacroiliitis, not elsewhere classified; I10 Essential (primary) hypertension; E11.9 Type 2 diabetes mellitus without complications; Z79.4 Long term (current) use of insulin; Z79.82 Long term (current) use of aspirin; Z79.891 Long term (current) use of opiate analgesic; Z79.899 Other long term (current) drug therapy; Z88.0 Allergy status to penicillin; Z88.8 Allergy status to other drugs, medicaments and biological substances; Z91.013 Allergy to seafood
CPT/HCPCS: J3301

== ENCOUNTER → 2017-08-07 | Outpatient (CLI) | payer MEDICARE, OTHER | LOC: M PAIN 10:00 | DX: M53.3 Sacrococcygeal disorders, not elsewhere classified (principal); E11.9 Type 2 diabetes mellitus without complications; I10 Essential (primary) hypertension; M19.90 Unspecified osteoarthritis, unspecified site; D47.2 Monoclonal gammopathy; L40.9 Psoriasis, unspecified; M81.0 Age-related osteoporosis without current pathological fracture; Z79.4 Long term (current) use of insulin; Z79.52 Long term (current) use of systemic steroids; Z79.82 Long term (current) use of aspirin; Z79.899 Other long term (current) drug therapy; Z88.0 Allergy status to penicillin; Z88.2 Allergy status to sulfonamides; Z88.8 Allergy status to other drugs, medicaments and biological substances; Z91.013 Allergy to seafood | CPT/HCPCS: G0463 ==

== ENCOUNTER → 2017-10-04 | Outpatient (CLI) | payer MEDICARE, OTHER | LOC: M RAD 09:16 | DX: R60.0 Localized edema (principal) | CPT/HCPCS: 93971 ==

== ENCOUNTER 2017-10-10 13:21 | Inpatient (IN) | payer MEDICARE, OTHER ==
[2017-10-10 14:23] LABS: VENOUS BASE EXCESS 3.3 (-2.0-2.0); VENOUS HCO3 28.9 MEQ/L (23.0-27.0); VENOUS O2 SATURATION 81.9 % (60.0-80.0); VENOUS PARTIAL PRESSURE CO2 46.7 mmHg (38.0-50.0); VENOUS PARTIAL PRESSURE O2 45.3 mmHg (30.0-50.0); VENOUS PH 7.409 UNITS (7.330-7.430); VENOUS TOTAL CO2 30.3 MEQ/L (24.0-28.0)
[2017-10-10 14:26] LABS: BASO # 0.1 10^3/uL (0.0-0.2); BASO % 0.6 % (0.0-1.0); EOS # 0.1 10^3/uL (0.0-0.50); EOS % 0.8 % (0.0-3.0); HEMATOCRIT 48.8 % (36.0-47.0); HEMOGLOBIN 16.1 g/dl (12.0-15.5); LYMPH % 7.8 % (24.0-44.0); MEAN CORPUSCULAR HEMOGLOBIN 31.1 pg (27.0-33.0); MEAN CORPUSCULAR VOLUME 94.2 fl (80.0-96.0); MONO % 7.6 % (0.0-5.0); NEUTROPHILS # 10.5 10^3/uL (1.8-7.7); NEUTROPHILS % 82.2 % (36.0-66.0); PLATELET COUNT, AUTOMATED 242 10^3/uL (150-450); RED BLOOD COUNT 5.18 10^6/uL (4.00-5.40); RED CELL DISTRIBUTION WIDTH 14.1 % (11.5-14.5); WHITE BLOOD COUNT 12.8 10^3/uL (4.0-10.0)
[2017-10-10 14:32] LABS: AMORPHOUS SEDIMENT RFX SMALL (NEGATIVE); KETONE, URINE AUTO RFX TRACE mg/dL (NEGATIVE); LEUKOCYTE ESTERASE UR AUTO RFX TRACE (NEGATIVE); MUCUS, URINE RFX LARGE (NEGATIVE); NITRITE, URINE AUTO RFX POSITIVE (NEGATIVE); RBC, URINE AUTO RFX 1 /HPF (0-3); SPECIFIC GRAVITY UR AUTO RFX 1.016 (1.002-1.035); SQUAM EPITHELIAL CELL UR AURFX 0 /HPF (0-6); WBC, URINE AUTO RFX 17 /HPF (0-3)
[2017-10-10 14:33] LABS: BEDSIDE GLUCOSE 179 MG/DL (83-110)
[2017-10-10 14:58] LABS: ANION GAP 9 MEQ/L (8-16); BLOOD UREA NITROGEN 30 MG/DL (7-18); CALCIUM LEVEL 9.2 MG/DL (8.8-10.2); CARBON DIOXIDE LEVEL 28 MEQ/L (21-32); CHLORIDE LEVEL 105 MEQ/L (98-107); CPK CREATINE PHOSPHOKINASE 88 U/L (26-192); CREATININE FOR GFR 1.19 MG/DL (0.55-1.30); GLOMERULAR FILTRATION RATE 46.7 (>39); GLUCOSE, FASTING 126 MG/DL (70-100); POTASSIUM SERUM 4.2 MEQ/L (3.5-5.1); SODIUM LEVEL 142 MEQ/L (136-145)
[2017-10-10 15:03] LABS: CK-MB VALUE MASS 2.1 NG/ML (<3.6); MB/CK RELATIVE INDEX 2.38 (< OR =4)
[2017-10-10 15:07] LABS: LACTIC ACID SEPSIS PROTOCOL 2.4 MMOL/L (0.4-2.0)
[2017-10-10] MEDS: NS 1,000 ML IV ×2 (15:25→16:24)
[2017-10-10] MEDS: CEPHALEXIN 500 MG CAP PO (16:03)
[2017-10-10] MEDS: ENOXAPARIN 60 MG/0.6 ML SYR (J1650) SC (16:15)
[2017-10-10] MEDS ORDERED: ONDANSETRON 4MG/2ML VIAL (J2405) IV (16:30)
[2017-10-10] MEDS ORDERED: ACETAMINOPHEN TAB 650MG DOSE (2X325MG) PO (16:30)
[2017-10-10] MEDS ORDERED: GLUCOSE 4 GM CHEW TABLET PO (16:30)
[2017-10-10] MEDS ORDERED: NORCO, ANEXSIA 5/325MG TABLET (HYDROcodone/ACETAMINOPHEN) PO (16:30)
[2017-10-10] MEDS ORDERED: GLUCAGON FOR INJ 1 MG VIAL (J1610) SC (16:30)
[2017-10-10] MEDS ORDERED: DEXTROSE 50% 50 ML SYRINGE IV (16:30)
[2017-10-10 18:20] LABS: BEDSIDE GLUCOSE 320 MG/DL (83-110)
[2017-10-10] MEDS: HumaLOG INSULIN (NovoLOG) PER UNIT SC ×2 (18:28→21:00)
[2017-10-10 21:04] LABS: BEDSIDE GLUCOSE 241 MG/DL (83-110)
[2017-10-10] MEDS: PROPRANOLOL 20 MG TAB PO (21:07)
[2017-10-10] MEDS: APIXABAN 5 MG TAB (ELIQUIS) PO (21:08)
[2017-10-11 06:01] LABS: HEMATOCRIT 42.4 % (36.0-47.0); MEAN CORPUSCULAR HEMOGLOBIN 30.5 pg (27.0-33.0); MEAN CORPUSCULAR HGB CONC 31.8 g/dl (32.0-36.5); MEAN CORPUSCULAR VOLUME 95.9 fl (80.0-96.0); PLATELET COUNT, AUTOMATED 206 10^3/uL (150-450); RED BLOOD COUNT 4.42 10^6/uL (4.00-5.40); WHITE BLOOD COUNT 9.1 10^3/uL (4.0-10.0)
[2017-10-11 06:09] LABS: HEMOGLOBIN 13.5 g/dl (12.0-15.5)
[2017-10-11] MEDS: NS 1,000 ML IV (06:13)
[2017-10-11 06:27] LABS: ANION GAP 6 MEQ/L (8-16); BLOOD UREA NITROGEN 26 MG/DL (7-18); CARBON DIOXIDE LEVEL 26 MEQ/L (21-32); CHLORIDE LEVEL 109 MEQ/L (98-107); CHOLESTEROL LEVEL 152 MG/DL (<200); CREATININE FOR GFR 0.94 MG/DL (0.55-1.30); GLOMERULAR FILTRATION RATE > 60.0 (>39); GLUCOSE, FASTING 182 MG/DL (70-100); HDL CHOLESTEROL 51 MG/DL (>40); LDL CHOLESTEROL 77.2 MG/DL (<100); NON-HDL-C 101 MG/DL; POTASSIUM SERUM 3.9 MEQ/L (3.5-5.1); SODIUM LEVEL 141 MEQ/L (136-145); TRIGLYCERIDES LEVEL 119 MG/DL (<150)
[2017-10-11] MEDS: HumaLOG INSULIN (NovoLOG) PER UNIT SC ×5 (08:08→21:11)
[2017-10-11] MEDS: predniSONE 10 MG TAB PO (08:08)
[2017-10-11] MEDS: LEVEMIR (INSULIN DETEMIR) 1 UNITS/0.01ML SC (08:08)
[2017-10-11] MEDS: APIXABAN 5 MG TAB (ELIQUIS) PO ×2 (08:08→21:10)
[2017-10-11] MEDS: PROPRANOLOL 20 MG TAB PO ×3 (08:09→21:10)
[2017-10-11 12:28] LABS: BEDSIDE GLUCOSE 272 MG/DL (83-110)
[2017-10-11 16:45] LABS: BEDSIDE GLUCOSE 282 MG/DL (83-110)
[2017-10-11] MEDS: cefTRIAXone SOD 1 GM in D5W MINI-BAG PLUS 50 ML IV (16:57)
[2017-10-11] MEDS ORDERED: SLF 3 ML SYR IV (17:15)
[2017-10-11 21:09] LABS: BEDSIDE GLUCOSE 163 MG/DL (83-110)
[2017-10-11] MEDS: SLF 3 ML SYR IV (21:11)
[2017-10-12] MEDS: SLF 3 ML SYR IV (06:07)
[2017-10-12 06:09] LABS: HEMATOCRIT 37.8 % (36.0-47.0); HEMOGLOBIN 12.4 g/dl (12.0-15.5); MEAN CORPUSCULAR HEMOGLOBIN 31.2 pg (27.0-33.0); MEAN CORPUSCULAR HGB CONC 32.8 g/dl (32.0-36.5); PLATELET COUNT, AUTOMATED 213 10^3/uL (150-450); RED BLOOD COUNT 3.98 10^6/uL (4.00-5.40); RED CELL DISTRIBUTION WIDTH 14.1 % (11.5-14.5); WHITE BLOOD COUNT 9.2 10^3/uL (4.0-10.0)
[2017-10-12 06:40] LABS: ANION GAP 8 MEQ/L (8-16); BLOOD UREA NITROGEN 20 MG/DL (7-18); CALCIUM LEVEL 7.8 MG/DL (8.8-10.2); CARBON DIOXIDE LEVEL 24 MEQ/L (21-32); CHLORIDE LEVEL 114 MEQ/L (98-107); GLOMERULAR FILTRATION RATE > 60.0 (>39); GLUCOSE, FASTING 85 MG/DL (70-100); POTASSIUM SERUM 3.3 MEQ/L (3.5-5.1); SODIUM LEVEL 146 MEQ/L (136-145)
[2017-10-12] MEDS: HumaLOG INSULIN (NovoLOG) PER UNIT SC (07:30)
[2017-10-12 08:16] LABS: MAGNESIUM LEVEL 1.9 MG/DL (1.8-2.4)
[2017-10-12] MEDS: POTASSIUM CHLORIDE 10 MEQ SR TABLET PO (08:31)
[2017-10-12] MEDS: LEVEMIR (INSULIN DETEMIR) 1 UNITS/0.01ML SC (08:31)
[2017-10-12] MEDS: PROPRANOLOL 20 MG TAB PO (08:32)
[2017-10-12] MEDS: APIXABAN 5 MG TAB (ELIQUIS) PO (08:32)
[2017-10-12] MEDS: predniSONE 10 MG TAB PO (08:32)
== END 2017-10-12 10:50 | disposition home or self-care (01) | DRG 690 ==
LOC: M ED 13:21 → M ED INP 16:24 → M PCU 18:48
DX: N39.0 Urinary tract infection, site not specified (principal); K51.90 Ulcerative colitis, unspecified, without complications; I48.91 Unspecified atrial fibrillation; E11.9 Type 2 diabetes mellitus without complications; N81.10 Cystocele, unspecified; I10 Essential (primary) hypertension; B96.20 Unspecified Escherichia coli [E. coli] as the cause of diseases classified elsewhere; Z88.0 Allergy status to penicillin; Z88.1 Allergy status to other antibiotic agents; Z88.2 Allergy status to sulfonamides; Z88.8 Allergy status to other drugs, medicaments and biological substances; Z79.4 Long term (current) use of insulin; Z79.899 Other long term (current) drug therapy; Z79.52 Long term (current) use of systemic steroids; Z79.891 Long term (current) use of opiate analgesic

== ENCOUNTER → 2017-10-24 | Outpatient (CLI) | payer MEDICARE, OTHER ==
[2017-10-24 08:25] LABS: BASO # 0.1 10^3/uL (0.0-0.2); EOS # 0.4 10^3/uL (0.0-0.50); EOS % 2.8 % (0.0-3.0); HEMATOCRIT 46.9 % (36.0-47.0); HEMOGLOBIN 15.1 g/dl (12.0-15.5); IMMATURE GRANULOCYTE # 0.1 10^3/uL (0-0); IMMATURE GRANULOCYTE % 1.1 % (0-3.0); LYMPH # 2.4 10^3/uL (1.5-4.5); LYMPH % 18.7 % (24.0-44.0); MEAN CORPUSCULAR HEMOGLOBIN 31.1 pg (27.0-33.0); MEAN CORPUSCULAR HGB CONC 32.2 g/dl (32.0-36.5); MEAN CORPUSCULAR VOLUME 96.7 fl (80.0-96.0); MONO # 1.3 10^3/uL (0.0-0.8); MONO % 9.8 % (0.0-5.0); NEUTROPHILS # 8.6 10^3/uL (1.8-7.7); NEUTROPHILS % 66.6 % (36.0-66.0); PLATELET COUNT, AUTOMATED 366 10^3/uL (150-450); RED BLOOD COUNT 4.85 10^6/uL (4.00-5.40); RED CELL DISTRIBUTION WIDTH 13.9 % (11.5-14.5); WHITE BLOOD COUNT 12.9 10^3/uL (4.0-10.0)
[2017-10-24 08:55] LABS: ALBUMIN 3.4 GM/DL (3.2-5.2); ALBUMIN/GLOBULIN RATIO 0.97 (1.00-1.93); ALKALINE PHOSPHATASE 56 U/L (45-117); ALT/SGPT 31 U/L (12-78); ANION GAP 7 MEQ/L (8-16); AST/SGOT 16 U/L (7-37); BILIRUBIN,TOTAL 0.6 MG/DL (0.2-1.0); BLOOD UREA NITROGEN 25 MG/DL (7-18); CALCIUM LEVEL 9.2 MG/DL (8.8-10.2); CARBON DIOXIDE LEVEL 32 MEQ/L (21-32); CHLORIDE LEVEL 103 MEQ/L (98-107); CHOLESTEROL LEVEL 208 MG/DL (<200); CHOLESTEROL RISK RATIO 2.929 (<5); FREE T4 1.18 NG/DL (0.76-1.46); GLOMERULAR FILTRATION RATE 57.1 (>39); GLUCOSE, FASTING 199 MG/DL (70-100); HDL CHOLESTEROL 71 MG/DL (>40); LDL CHOLESTEROL 113.6 MG/DL (<100); MAGNESIUM LEVEL 1.7 MG/DL (1.8-2.4); NON-HDL-C 137 MG/DL; POTASSIUM SERUM 4.1 MEQ/L (3.5-5.1); SODIUM LEVEL 142 MEQ/L (136-145); TOTAL PROTEIN 6.9 GM/DL (6.4-8.2); TRIGLYCERIDES LEVEL 117 MG/DL (<150)
[2017-10-24 09:08] LABS: ESTIMATED AVERAGE GLUCOSE 194 MG/DL (60-110); HEMOGLOBIN A1c 8.4 %
[2017-10-24 09:46] LABS: TOTAL 25(OH) VITAMIN D 20.3 NG/ML (30.0-100.0)
== END ==
LOC: M LAB 07:36
DX: Z51.81 Encounter for therapeutic drug level monitoring (principal); Z79.899 Other long term (current) drug therapy; E78.00 Pure hypercholesterolemia, unspecified; E11.65 Type 2 diabetes mellitus with hyperglycemia; E83.42 Hypomagnesemia
CPT/HCPCS: 83735

== ENCOUNTER → 2017-10-27 | Outpatient (REF) | payer MEDICARE, OTHER | LOC: M SFHCCAPE 16:59 | DX: N39.0 Urinary tract infection, site not specified (principal) ==

== ENCOUNTER → 2017-12-22 | Outpatient (REF) | payer MEDICARE, OTHER ==
[2017-12-22 18:29] LABS: APPEARANCE, URINE CLEAR (CLEAR); BACTERIA, URINE AUTO NEGATIVE (NEGATIVE); BILIRUBIN, URINE AUTO NEGATIVE (NEGATIVE); BLOOD, URINE BLOOD NEGATIVE (NEGATIVE); COLOR, URINE YELLOW (YELLOW); GLUCOSE, URINE (UA) AUTO 3+ mg/dL (NEGATIVE); KETONE, URINE AUTO NEGATIVE (NEGATIVE); LEUKOCYTE ESTERASE, URINE AUTO 2+ (NEGATIVE); NITRITE, URINE AUTO NEGATIVE (NEGATIVE); PROTEIN, URINE AUTO NEGATIVE (NEGATIVE); RBC, URINE AUTO 3 /HPF (0-3); SPECIFIC GRAVITY URINE AUTO 1.022 (1.002-1.035); SQUAMOUS EPITHELIAL CELL UR AU 1 /HPF (0-6); UROBILINOGEN, URINE AUTO 0.2 mg/dL (0.0-2.0); WBC, URINE AUTO 8 /HPF (0-3); YEAST LIKE CELL URINE AUTO SMALL
== END ==
LOC: M SMT 17:04
DX: Z87.440 Personal history of urinary (tract) infections (principal); Z79.899 Other long term (current) drug therapy
CPT/HCPCS: 81001

== ENCOUNTER 2018-01-27 09:57 | Emergency (ER) | payer MEDICARE, OTHER ==
[2018-01-27] MEDS: ACETAMINOPHEN TAB 650MG DOSE (2X325MG) PO (10:23)
== END 2018-01-27 11:22 | disposition home or self-care (01) ==
LOC: M ED 09:57
DX: S52.502A Unspecified fracture of the lower end of left radius, initial encounter for closed fracture (principal); S52.602A Unspecified fracture of lower end of left ulna, initial encounter for closed fracture; W18.39XA Other fall on same level, initial encounter; Y92.018 Other place in single-family (private) house as the place of occurrence of the external cause; I10 Essential (primary) hypertension; Z88.0 Allergy status to penicillin; Z88.1 Allergy status to other antibiotic agents; Z88.2 Allergy status to sulfonamides; Z91.018 Allergy to other foods
CPT/HCPCS: 73110

== ENCOUNTER → 2018-07-16 | Outpatient (REF) | payer MEDICARE, OTHER ==
[~2018-07-16] MED LIST changes: +ASPI1TAB PO; +BENA20TA8 PO; +BENT10CA PO; -BUPIVACAINE HCL 0.25% 30 ML VIAL As Ordered; +DIFL200T PO; +ELIQ5TAB PO; +HYDR-3713 PO; +HYDR12.55 PO; +HYDR25TAB; +HYDR25TAB PO; +INDE60CA4 PO; +INSUDET SC; +INSUH10VL SC; +INSUHUMDS SC; -ISOVUE-M 300 61% 15ML VIAL (Q9967) As Ordered; +K-TA10TA2 PO; +KEFL500C17 PO; -LIDOCAINE 1% SDV INJ 30 ML VIAL As Ordered; +MACR100C43 PO; +METF500T13 PO; +NITR100C39 PO; +PRED10PA PO; +PROP10TA56 PO; +PROP20TA PO; +PROP60TA14 PO; -TRIAMCINOLONE ACETONIDE SUSP 40 MG/ML VIAL (J3301) As Ordered; +TYLE650T35 PO; +ULTR50TA8 PO; +ZITHTAB PO
[2018-07-16 13:31] LABS: APPEARANCE, URINE CLEAR (CLEAR); BACTERIA, URINE AUTO 2+ (NEGATIVE); BILIRUBIN, URINE AUTO NEGATIVE (NEGATIVE); BLOOD, URINE BLOOD 1+ (NEGATIVE); GLUCOSE, URINE (UA) AUTO 2+ mg/dL (NEGATIVE); KETONE, URINE AUTO NEGATIVE (NEGATIVE); LEUKOCYTE ESTERASE, URINE AUTO 2+ (NEGATIVE); MUCUS, URINE SMALL (NEGATIVE); NITRITE, URINE AUTO NEGATIVE (NEGATIVE); PROTEIN, URINE AUTO NEGATIVE (NEGATIVE); RBC, URINE AUTO 1 /HPF (0-3); SPECIFIC GRAVITY URINE AUTO 1.019 (1.002-1.035); SQUAMOUS EPITHELIAL CELL UR AU 0 /HPF (0-6); UROBILINOGEN, URINE AUTO 0.2 mg/dL (0.0-2.0); WBC, URINE AUTO 52 /HPF (0-3)
[2018-07-16 13:43] LABS: COLOR, URINE YELLOW (YELLOW)
== END ==
LOC: M SMT 12:49
PROVIDERS: ATTEND Nurse Practitioner Women's Health
DX: R32 Unspecified urinary incontinence (principal)
CPT/HCPCS: 51798; 81001; 87088; 87186; G0463

== ENCOUNTER → 2018-08-06 | Outpatient (REF) | payer MEDICARE, OTHER ==
[~2018-08-06] MED LIST changes: +PERC5TAB12 PO
== END ==
LOC: M SMT 13:30
PROVIDERS: ATTEND Nurse Practitioner Women's Health
DX: N39.0 Urinary tract infection, site not specified (principal)

== ENCOUNTER 2018-08-10 08:32 | Emergency (ER) | payer MEDICARE, OTHER ==
[~2018-08-10] VITALS: Ht 154.9 cm; Wt 65.9 kg
[~2018-08-10 08:32] MED LIST changes: +HYDR-2541 PO; -HYDR25TAB; -PERC5TAB12 PO
[2018-08-10] MEDS ORDERED: MORPHINE 4 MG/ML 1ML VIAL/SYRINGE (J2270) IV ONE (09:00)
[2018-08-10 09:51] LABS: BASO # 0.1 10^3/uL (0.0-0.2); BASO % 0.8 % (0.0-1.0); EOS # 0.3 10^3/uL (0.0-0.50); EOS % 2.1 % (0.0-3.0); HEMATOCRIT 47.3 % (36.0-47.0); HEMOGLOBIN 15.2 g/dl (12.0-15.5); LYMPH # 1.4 10^3/uL (1.5-4.5); LYMPH % 9.7 % (24.0-44.0); MEAN CORPUSCULAR HEMOGLOBIN 30.3 pg (27.0-33.0); MEAN CORPUSCULAR HGB CONC 32.1 g/dl (32.0-36.5); MEAN CORPUSCULAR VOLUME 94.2 fl (80.0-96.0); MONO # 1.3 10^3/uL (0.0-0.8); MONO % 9.2 % (0.0-5.0); NEUTROPHILS # 10.8 10^3/uL (1.8-7.7); NEUTROPHILS % 77.3 % (36.0-66.0); PLATELET COUNT, AUTOMATED 228 10^3/uL (150-450); RED BLOOD COUNT 5.02 10^6/uL (4.00-5.40)
[2018-08-10 10:08] LABS: CALCIUM LEVEL 8.6 MG/DL (8.8-10.2); CREATININE FOR GFR 0.99 MG/DL (0.55-1.30); GLOMERULAR FILTRATION RATE 57.6 (>39); POTASSIUM SERUM 3.8 MEQ/L (3.5-5.1)
[2018-08-10] MEDS ORDERED: PERCOCET 5MG/325MG TAB PO ONE (10:30)
[2018-08-10] MEDS ORDERED: CEPHALEXIN 500 MG CAP PO ONE (14:15)
[2018-08-10] MEDS ORDERED: PERC5TAB12 PO ×2 (14:34→14:35)
[2018-08-10] MEDS ORDERED: KEFL500C17 PO (14:36)
[2018-08-10 14:59] VITALS: BP 133/71
[2018-08-11] MEDS ORDERED: HUMA100I3 SC (12:42)
[2018-08-11] MEDS ORDERED: PRED10TA2 PO (12:42)
[2018-08-11] MEDS ORDERED: PROP40TA62 PO (12:42)
[2018-08-11] MEDS ORDERED: ACET1TAB55 PO (12:42)
[2018-08-11] MEDS ORDERED: ELIQ5TAB PO (12:43)
[2018-08-11] MEDS ORDERED: PERC5TAB12 PO (12:46)
[2018-08-11] MEDS ORDERED: CEPH500C PO (12:49)
[2018-08-11] MEDS ORDERED: TRAM50TA2 PO (15:14)
[2018-08-11] MEDS ORDERED: ZOFR4TAB16 PO (15:19)
== END 2018-08-10 15:00 | disposition home or self-care (01) ==
LOC: M ED 08:32
DX: N39.0 Urinary tract infection, site not specified (principal); M54.9 Dorsalgia, unspecified; I48.91 Unspecified atrial fibrillation; E11.9 Type 2 diabetes mellitus without complications; I10 Essential (primary) hypertension; K51.919 Ulcerative colitis, unspecified with unspecified complications; Z79.82 Long term (current) use of aspirin; Z79.4 Long term (current) use of insulin; Z79.899 Other long term (current) drug therapy; Z88.1 Allergy status to other antibiotic agents; Z88.0 Allergy status to penicillin; Z88.2 Allergy status to sulfonamides; Z88.8 Allergy status to other drugs, medicaments and biological substances; Z91.018 Allergy to other foods
CPT/HCPCS: 80048; 81001; 85025; 87086; 96374; 99284; J2270

== ENCOUNTER 2018-08-11 10:17 | Emergency (ER) | payer MEDICARE, OTHER ==
[~2018-08-11] VITALS: Ht 154.9 cm; Wt 60.0 kg
[~2018-08-11 10:17] MED LIST changes: +PERC5TAB12 PO
[2018-08-11] MEDS ORDERED: MORPHINE 4 MG/ML 1ML VIAL/SYRINGE (J2270) IV ONE (10:45)
[2018-08-11 11:12] LABS: BASO # 0.1 10^3/uL (0.0-0.2); BASO % 0.5 % (0.0-1.0); EOS # 0.2 10^3/uL (0.0-0.50); EOS % 1.5 % (0.0-3.0); HEMATOCRIT 48.7 % (36.0-47.0); LYMPH % 6.4 % (24.0-44.0); MEAN CORPUSCULAR HEMOGLOBIN 30.7 pg (27.0-33.0); MEAN CORPUSCULAR HGB CONC 32.9 g/dl (32.0-36.5); MEAN CORPUSCULAR VOLUME 93.5 fl (80.0-96.0); MONO # 1.1 10^3/uL (0.0-0.8); MONO % 7.5 % (0.0-5.0); NEUTROPHILS # 12.6 10^3/uL (1.8-7.7); NEUTROPHILS % 83.4 % (36.0-66.0); PLATELET COUNT, AUTOMATED 235 10^3/uL (150-450); RED BLOOD COUNT 5.21 10^6/uL (4.00-5.40); WHITE BLOOD COUNT 15.1 10^3/uL (4.0-10.0)
[2018-08-11 11:24] LABS: INR 1.57
[2018-08-11 11:39] LABS: INFLUENZA A AMPLIFICATION NEGATIVE (NEGATIVE); INFLUENZA B AMPLIFICATION NEGATIVE (NEGATIVE)
[2018-08-11 11:42] LABS: CALCIUM LEVEL 8.9 MG/DL (8.8-10.2); CPK CREATINE PHOSPHOKINASE 112 U/L (26-192); GLOMERULAR FILTRATION RATE 56.9 (>39); MB/CK RELATIVE INDEX 1.52 (< OR =4); TROPONIN I < 0.02 NG/ML (< 0.10)
--- NOTE | 2018-08-11 11:55 | REP ---
CHEST, TWO VIEWS: Two views of the chest are performed. COMPARISON: 10/15/2017. There is no acute infiltrate or pulmonary edema. Heart is enlarged and unchanged. There is calcification and ectasia as well as tortuosity of the thoracic aorta. The mediastinal silhouette is unchanged. There are degenerative changes of the thoracic spine with curvature toward to the left. IMPRESSION: Cardiomegaly. No evidence of acute infiltrate. Electronically Signed by David Marrero MD 08/11/2018 06:59 P
--- NOTE | 2018-08-11 11:55 | REP ---
THORACIC SPINE SERIES: Three views of the thoracic spine performed. There is no compression fracture. There is mild accentuation of the thoracic kyphosis. There is mild diffuse spurring. Disc space narrowing and subchondral sclerosis is seen at multiple levels in the mid thoracic region. There is mild curvature toward the left of the lower thoracic spine. Posterior elements appear intact. IMPRESSION: Degenerative changes without fracture. No malalignment with accentuation of thoracic kyphosis. Mild curvature of the lower thoracic spine convex to the left. Electronically Signed by David Marrero MD 08/11/2018 06:59 P
[2018-08-11] MEDS ORDERED: ISOVUE-370 76% 125ML VIAL (Q9967 PER ML) As Ordered ONE (12:15)
--- NOTE | 2018-08-11 12:41 | REP ---
LUMBOSACRAL SPINE SERIES: Five views of the lumbosacral spine are performed and compared to prior study of 12/10/2016. There is mild to moderate compression of the L1 and L3 vertebral bodies essentially new compared to the prior study. Superior endplate of L1 is depressed. There is moderate spurring of L3. There is disc space narrowing of a moderate degree at all levels with vacuum phenomenon and subchondral sclerosis at L2-3 and L3-4. Vertebral bodies are relatively well aligned. There is moderate curvature towards the right. Posterior elements appear intact. There are scattered vascular calcifications. There are phleboliths and a pessary in the pelvis. IMPRESSION: New moderate compression deformities L1 and L3 of indeterminate age. They are new when compared to prior study of 12/10/2016. There are moderate diffuse degenerative changes again seen which have worsened somewhat since the prior study. There is moderate curvature of the lumbar spine convex to the right. Electronically Signed by David Marrero MD 08/11/2018 07:01 P
[2018-08-11] MEDS ORDERED: PRED10TA2 PO (12:42)
[2018-08-11] MEDS ORDERED: PROP40TA62 PO (12:42)
[2018-08-11] MEDS ORDERED: HUMA100I3 SC (12:42)
[2018-08-11] MEDS ORDERED: ACET1TAB55 PO (12:42)
[2018-08-11] MEDS ORDERED: ELIQ5TAB PO (12:43)
[2018-08-11] MEDS ORDERED: PERC5TAB12 PO (12:46)
[2018-08-11] MEDS ORDERED: CEPH500C PO (12:49)
--- NOTE | 2018-08-11 13:26 | REP ---
CT ANGIOGRAM OF THE CHEST: TECHNIQUE: Axial contrast enhanced images from the thoracic inlet to the upper abdomen using 100 mL Isovue 370 intravenous contrast material with multiplanar reformations. There is no CT evidence of pulmonary embolism, with no filling defects seen in any of the pulmonary arteries. There is no thoracic aortic aneurysm or dissection. There is cardiomegaly. There is no mediastinal, hilar, or chest wall lymphadenopathy. There is no pleural or pericardial effusion. Bilateral fibroatelectatic changes are seen predominantly in the dependent portions of the lungs. There appears to be some degree of fatty infiltration of the liver. There are degenerative changes of the thoracic spine. IMPRESSION: No CT evidence of pulmonary embolism. Cardiomegaly. Bilateral fibroatelectatic changes in the lungs. Electronically Signed by David Marrero MD 08/11/2018 07:02 P
[2018-08-11] MEDS ORDERED: cefTRIAXone SOD 1 GM in D5W MINI-BAG PLUS 50 ML IV ONE (13:45)
[2018-08-11] MEDS ORDERED: traMADol 50 MG TAB PO ONE (13:45)
[2018-08-11] MEDS ORDERED: TRAM50TA2 PO (15:14)
[2018-08-11] MEDS ORDERED: ZOFR4TAB16 PO (15:19)
--- NOTE | 2018-08-11 15:24 | ED PDOC ---
Post-Departure Follow-Up Seen by Dr. Goldman for admission, her consultation is appreciated. Dr. Goldman h as ambulated patient in ED and finds no further hypoxia. Dr. Goldman offered patient admission for pain control, PT evaluation but patient declines, witnessed by myself, and wants to go home. Percocet made patient nauseated so Dr. Goldman recommended Tramadol instead, stop Percocet. Also I have prescribed Zofran prn nausea. Patient instructed to follow up with Dr. Winslow this week for recheck, and instructed to return to the ED for any worsening or uncontrolled pain, neurologic symptoms, or any other concerns. Patient and agree with plan. DANISHA RAMACHANDRAN MD Aug 11, 2018 15:24
[2018-08-11 15:50] VITALS: BP 131/63
--- NOTE | 2018-08-11 19:12 | CR ---
DATE OF CONSULTATION: 08/11/2018 CHIEF COMPLAINT: Back pain. HISTORY OF PRESENT ILLNESS: This is a 78-year-old female with past medical history of diabetes, hypertension, ulcerative colitis, urinary prolapse, atrial fibrillation, on anticoagulation with Eliquis, who presents with chief complaint of ongoing back pain. Of note, patient was here in the emergency room yesterday for these reports of back pain, at which time she was given Percocet and also given a course of Keflex for a possible urinary tract infection and sent home. She reports that taking two pills of the Percocet made her feel quite unwell and nauseous and dizziness, and she did not tolerate this well. She spoke to her primary care physician, Dr. Winslow, who recommended taking only half a pill. She did much better with this; however, her back pain persisted this morning, and she decided to come to the emergency room. Currently, she reports her pain is 4/10, but she has received a dose of intravenous (IV) morphine in the emergency room. The emergency room provider was concerned that patient's saturation on admission was 88% on room air, and therefore a CT angiogram of her chest was pursued, which did not show any acute process, and thought the patient needed to be admitted for both pain control and evaluation of the hypoxia. At this time she does report some dysuria as well, and says whenever she gets urinary tract infections, she receives Keflex given her allergies to fluoroquinolones, penicillins, and sulfa antibiotics. She is currently denying any chest pain or shortness of breath whatsoever. PAST MEDICAL HISTORY: As noted above in history of present illness (HPI). PAST SURGICAL HISTORY: She has a history of dilatation and curettage and a history of cystoscopy. HOME MEDICATIONS: - Tylenol 650 mg by mouth every 4 as needed for pain - Eliquis 5 mg by mouth twice a day - benazepril 20 mg by mouth daily - Keflex 500 mg by mouth twice a day - hydrochlorothiazide 25 mg by mouth twice a day - hydrochlorothiazide 25 mg by mouth daily - Levemir 60 units subcutaneous daily - Lispro 5 units before meals and at bedtime - Zofran 4 mg every 6 to every as needed for nausea and vomiting - Percocet one tablet every 6 as needed for pain - prednisone 10 mg daily - propranolol 40 mg by mouth twice a day ALLERGIES: Patient is allergic to CIPROFLOXACIN, NALBUPHINE, PENICILLIN, salmon, SULFA ANTIBIOTICS. FAMILY HISTORY: Patient reports her daughter has some lung issues and possible COPD. SOCIAL HISTORY: Patient is . Lives with her . No smoking, alcohol, or drugs. She walks at home with a walker. PHYSICAL EXAMINATION: In the ER she is currently afebrile, 98.2, blood pressure 131/63, pulse is 78, respirations 18, saturating 94% on room air. GENERAL: She is in no acute distress and breathing comfortably. CARDIOVASCULAR: Irregularly irregular. No murmurs, rubs, or gallops. LUNGS: Clear to auscultation bilaterally. ABDOMEN: Soft, nontender, nondistended. Positive bowel sounds. EXTREMITIES: No clubbing, cyanosis, or edema. NEUROLOGIC: She is alert and oriented times three. Follows simple commands. No focal neurologic deficit. She is able to move her lower extremities without any evidence of weakness. SKIN: Intact. PSYCHIATRIC: Mood stable. LABORATORY DATA: Reveal leukocytosis with a white count of 15, hemoglobin of 16, hematocrit 48, platelets of 235. Chemistry: Creatinine of 1, BUN 24, potassium of 4.0. IMAGING: Shows CT angiogram with no evidence of pulmonary embolism (PE). There is bilateral fibroatelectatic changes in the lungs. Chest x-ray shows cardiomegaly. No evidence of acute infiltrate. Lumbar x-ray shows new compression deformities at L1 and L3 of indeterminate age. They are new compared to prior. Thoracic x-ray shows degenerative changes without fractures. No malalignment with accentuation of thoracic kyphosis. There is mild curvature of the lower thoracic spine, convex to the left. ASSESSMENT AND PLAN: This is a 78-year-old female with history of atrial fibrillation, on Eliquis, hypertension, diabetes, who presents with chief complaint of persistent back pain, found to have spinal compression deformities, and possible hypoxia. 1. Back pain, likely secondary to the new compression fractures noted on the patient's x-rays. I did discuss these findings with the orthopedic surgeon oracle database consultant, Dr. Enriquez, who recommended that there should be no acute surgical intervention for this patient. First line would be conservative therapy with physical therapy and pain control. At this time the patient's pain level is 4/10. She did ambulate with nursing in the emergency room, and her pain was controlled. She does have a supply of Percocet at home, which she did better with if she took a half a tablet. I have also given her a dose of tramadol to try here in the emergency room, which she tolerated as well. She will have these medications to take at home for her pain control. She should also talk to her primary care doctor about getting a thoracic, lumbar, sacral orthosis (TLSO) brace for support. I spoke to physical therapy, who does not have any here in stock today, but she should try to obtain this as an outpatient to help improve her symptoms. Patient did fell well enough to go home, and her pain was adequately controlled. She was given return precautions to come back if she felt like she was in uncontrolled pain or at a fall risk. She should also get a referral for physical therapy from her primary care physician and/or pain specialist. 2. Possible hypoxia. Patient did have some saturations noted in the chart, an oxygen saturation of around 88% on room air. This appears to be isolated and depending on which finger her oxygen saturations are checked. She had absolutely no complaints of chest pain or shortness of breath. She tolerated ambulation without any symptoms of dyspnea. Her CT angiogram (CTA) did show some fibrosis changes and no pulmonary embolism (PE). After ambulation when she was checked, nursing reported that she was 89%, but again she did not have any symptoms. When I went to evaluate her at bedside, her saturations on room air were approximately between 93-95%. Given that she is completely asymptomatic from these inconsistent readings and given her CT and x-ray findings, I feel comfortable discharging this patient. I did advise her to get a referral from her primary care physician for a news videographer to evaluate her CT findings. 3. Urinary tract infection. Yesterday when she was here in the ER, her urinalysis (UA) was slightly by mouth and showed 36 whites and leukocyte esterase, and she did have some reports of dysuria. She was sent home with a course of Keflex given her multiple allergies. I did give her an intravenous (IV) dose of ceftriaxone here in the ER before discharging home. Her primary care doctor can follow all this and report a UA and urine culture if necessary. Her urine culture from yesterday shows contamination. 4. Her chronic medical problems of diabetes and hypertension are stable. Patient is being discharged from the emergency room with strict return precautions should her pain worsen, become unbearable, she is a fall risk, or she feels any symptoms of chest pain or shortness of breath. This plan was discussed with the emergency room provider, Dr. Silva.
--- NOTE | 2018-08-11 19:18 | ECGEPIP ---
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
--- NOTE | 2018-08-13 11:35 | ED PDOC ---
Post-Departure Follow-Up dr navarro faxed formal report of ls spine for fu Rosie Kelsey MD Aug 13, 2018 11:35
== END 2018-08-11 16:01 | disposition home or self-care (01) ==
LOC: EDBD 10:17 → M ED 10:17
DX: M54.5 Low back pain (principal); R09.02 Hypoxemia; N39.0 Urinary tract infection, site not specified; I10 Essential (primary) hypertension; E11.9 Type 2 diabetes mellitus without complications; I48.91 Unspecified atrial fibrillation; Z79.899 Other long term (current) drug therapy; Z79.4 Long term (current) use of insulin; Z79.01 Long term (current) use of anticoagulants; Z88.0 Allergy status to penicillin; Z88.1 Allergy status to other antibiotic agents; Z88.2 Allergy status to sulfonamides; Z88.8 Allergy status to other drugs, medicaments and biological substances; Z91.018 Allergy to other foods
CPT/HCPCS: 36415; 71046; 71275; 72072; 72110; 80048; 82550; 82553; 84484; 85025; 85610; 85730; 87502; 93005; 93041; 94760; 96374; 96375; 99285; J0696; J2270; Q9967

== ENCOUNTER → 2018-10-04 | Outpatient (REF) | payer MEDICARE, OTHER ==
[~2018-10-04] MED LIST changes: +ACET1TAB55 PO; -ASPI1TAB PO; +ASPI81TA26 PO; +CEPH500C PO; +HUMA100I3 SC; +PRED10TA2 PO; +PROP40TA62 PO; +TRAM50TA2 PO; +ZOFR4TAB16 PO
[2018-10-04 13:31] LABS: AMORPHOUS SEDIMENT SMALL (NEGATIVE); APPEARANCE, URINE CLOUDY (CLEAR); BACTERIA, URINE AUTO 3+ (NEGATIVE); BILIRUBIN, URINE AUTO NEGATIVE (NEGATIVE); BLOOD, URINE BLOOD 1+ (NEGATIVE); COLOR, URINE YELLOW (YELLOW); GLUCOSE, URINE (UA) AUTO 3+ mg/dL (NEGATIVE); KETONE, URINE AUTO NEGATIVE (NEGATIVE); LEUKOCYTE ESTERASE, URINE AUTO 1+ (NEGATIVE); MUCUS, URINE SMALL (NEGATIVE); NITRITE, URINE AUTO POSITIVE (NEGATIVE); PROTEIN, URINE AUTO NEGATIVE (NEGATIVE); RBC, URINE AUTO 2 /HPF (0-3); SPECIFIC GRAVITY URINE AUTO 1.016 (1.002-1.035); SQUAMOUS EPITHELIAL CELL UR AU 1 /HPF (0-6); UROBILINOGEN, URINE AUTO 0.2 mg/dL (0.0-2.0); WBC, URINE AUTO 55 /HPF (0-3)
== END ==
LOC: M SMT 13:09
PROVIDERS: ATTEND Nurse Practitioner Women's Health
DX: R82.998 Other abnormal findings in urine (principal)

== ENCOUNTER → 2019-03-15 | Outpatient (REF) | payer MEDICARE, OTHER ==
[2019-03-15 17:37] LABS: APPEARANCE, URINE CLOUDY (CLEAR); BACTERIA, URINE AUTO 1+ (NEGATIVE); BILIRUBIN, URINE AUTO NEGATIVE (NEGATIVE); BLOOD, URINE BLOOD 1+ (NEGATIVE); COLOR, URINE YELLOW (YELLOW); GLUCOSE, URINE (UA) AUTO 3+ mg/dL (NEGATIVE); KETONE, URINE AUTO NEGATIVE (NEGATIVE); LEUKOCYTE ESTERASE, URINE AUTO 3+ (NEGATIVE); MUCUS, URINE SMALL (NEGATIVE); NITRITE, URINE AUTO POSITIVE (NEGATIVE); PROTEIN, URINE AUTO NEGATIVE (NEGATIVE); RBC, URINE AUTO 6 /HPF (0-3); SQUAMOUS EPITHELIAL CELL UR AU 11 /HPF (0-6); URIC ACID CRYSTALS SMALL; UROBILINOGEN, URINE AUTO 0.2 mg/dL (0.0-2.0); WBC, URINE AUTO 74 /HPF (0-3)
== END ==
LOC: M SMT 16:53
PROVIDERS: ATTEND Nurse Practitioner Women's Health
DX: R30.0 Dysuria (principal)

== ENCOUNTER → 2019-03-29 | Outpatient (REF) | payer MEDICARE, OTHER | LOC: M SFHCWAGY 16:29 | PROVIDERS: ATTEND Nurse Practitioner Family | DX: B37.3 Candidiasis of vulva and vagina (principal) | CPT/HCPCS: 87070; 87077; 87186; G0463 ==

== ENCOUNTER 2019-04-26 08:26 | Emergency (ER) | payer MEDICARE, OTHER ==
[~2019-04-26] VITALS: Ht 160 cm; Wt 61.4 kg
--- NOTE | 2019-04-26 09:24 | REP ---
Clinical: Shortness of breath. Technique: Axial noncontrast images from the thoracic inlet to the upper abdomen with coronal and sagittal re-formations. Comparison: 08/11/2018. Findings: The lung marin demonstrate minimal bronchiectasis and chronic age-related interstitial changes. Subtle posterior basilar dependent changes at the right base noted. No significant consolidation. No effusion. No pneumothorax. Small 3 mm subpleural nodules along the lateral aspect of the right middle lobe (image 56) and right lower lobe (image 65) identified. Mediastinum demonstrates atherosclerotic changes to the thoracic aorta and coronary arteries. No evidence for aortic aneurysm. No pericardial effusion. Osseous structures are intact. Limited upper abdomen demonstrates normal bilateral adrenal glands and fatty infiltration of the liver. Impression: No significant acute pleuroparenchymal process. Mild chronic changes. 3 mm subpleural nodules in the right middle lobe and right lower lobe. Consider follow-up examination at 6 for high-risk patient and 12-month follow-up for low-risk the patient population. Electronically Signed by Chadwick Bowman MD 04/26/2019 09:15 A
--- NOTE | 2019-04-26 09:28 | REP ---
Clinical: Trauma. Technique: PA and lateral. Comparison: 08/11/2018. Findings: Mediastinum and cardiac silhouette are stable. Lung marin are relatively clear and without obvious consolidation/contusion or effusion. No pneumothorax. Skeletal structures demonstrate osteopenia and degenerative changes without obvious acute injury. Impression: No obvious acute cardiopulmonary process. Electronically Signed by Chadwick Bowman MD 04/26/2019 09:19 A
[2019-04-26 11:09] VITALS: BP 126/55
--- NOTE | 2019-04-26 13:46 | ED PDOC ---
Post-Departure Follow-Up ronni root faxed formal report of ct chest for fu limag Rosie Cisneros MD Apr 26, 2019 13:46
--- NOTE | 2019-04-26 20:03 | ECGEPIP ---
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
== END 2019-04-26 11:10 | disposition home or self-care (01) ==
LOC: M ED 08:26
DX: R91.1 Solitary pulmonary nodule (principal); S20.211A Contusion of right front wall of thorax, initial encounter; W18.39XA Other fall on same level, initial encounter; Y92.89 Other specified places as the place of occurrence of the external cause; E11.9 Type 2 diabetes mellitus without complications; I10 Essential (primary) hypertension; I48.91 Unspecified atrial fibrillation; K51.90 Ulcerative colitis, unspecified, without complications; M19.90 Unspecified osteoarthritis, unspecified site; Z79.899 Other long term (current) drug therapy; Z79.4 Long term (current) use of insulin; Z79.01 Long term (current) use of anticoagulants; Z88.0 Allergy status to penicillin; Z88.1 Allergy status to other antibiotic agents; Z88.2 Allergy status to sulfonamides; Z88.8 Allergy status to other drugs, medicaments and biological substances; Z91.018 Allergy to other foods

== ENCOUNTER 2019-05-16 09:41 | Emergency (ER) | payer MEDICARE, OTHER ==
[~2019-05-16] VITALS: Ht 154.9 cm; Wt 59.5 kg
[2019-05-16 10:48] LABS: BASO # 0.1 10^3/uL (0.0-0.2); BASO % 0.9 % (0.0-1.0); EOS # 0.2 10^3/uL (0.0-0.5); EOS % 2.4 % (0.0-3.0); HEMATOCRIT 44.3 % (36.0-47.0); LYMPH # 1.8 10^3/uL (1.5-5.0); LYMPH % 17.7 % (24.0-44.0); MEAN CORPUSCULAR HGB CONC 31.6 g/dl (32.0-36.5); MONO # 0.9 10^3/uL (0.0-0.8); MONO % 9.1 % (0.0-5.0); NEUTROPHILS # 6.9 10^3/uL (1.5-8.5); NEUTROPHILS % 68.9 % (36.0-66.0); PLATELET COUNT, AUTOMATED 220 10^3/uL (150-450); RED BLOOD COUNT 4.52 10^6/uL (4.00-5.40)
[2019-05-16 10:54] LABS: INR 1.53; PROTHROMBIN TIME 18.1 SECONDS (11.8-14.0)
[2019-05-16 10:56] LABS: PARTIAL THROMBOPLASTIN TIME 28.7 SECONDS (25.0-38.4)
[2019-05-16 11:14] LABS: ALBUMIN 2.8 GM/DL (3.2-5.2); BILIRUBIN,DIRECT 0.2 MG/DL (0.0-0.2); BILIRUBIN,TOTAL 0.5 MG/DL (0.2-1.0)
--- NOTE | 2019-05-16 11:28 | REP ---
Clinical: Trauma. Technique: Frontal view of the chest with multiple views of the right hemithorax. Findings: Frontal view of the chest demonstrates no acute cardiopulmonary process. Multiple views of the right hemithorax is somewhat limited in evaluation due to osteopenia and anatomical variation. No obvious or displaced right rib fracture identified. Impression: No obvious right rib fracture identified. Electronically Signed by Chadwick Bowman MD 05/16/2019 11:20 A
--- NOTE | 2019-05-16 11:51 | REP ---
RIGHT UPPER QUADRANT ULTRASOUND: Real-time sonographic evaluation of right upper quadrant performed. Gallbladder demonstrates no evidence of intraluminal sludge or calculi, wall thickening, or pericholecystic fluid. There is no intrahepatic or extrahepatic biliary dilatation, common bile duct measuring 3 mm. Liver demonstrates heterogeneous increased echotexture diffusely suggesting diffuse fibrofatty infiltration. Otherwise, no gross liver or pancreatic abnormality is seen. Pancreas is not well seen due to overlying bowel gas. Right kidney demonstrates no hydronephrosis with normal size 10.7 cm in length. IMPRESSION: Diffuse fibrofatty infiltration of the liver. Otherwise, negative right upper quadrant ultrasound. Electronically Signed by David Marrero MD 05/16/2019 12:30 P
[2019-05-16] MEDS ORDERED: MACR100C43 PO (12:49)
[2019-05-16 13:03] VITALS: BP 126/58
--- NOTE | 2019-05-16 14:34 | REP ---
CT ABDOMEN/PELVIS WITHOUT CONTRAST: CT abdomen/pelvis performed without oral or IV contrast. Sagittal and coronal reconstruction images are performed. Comparison made with prior MRI lumbar spine, 08/29/[address] abdomen and pelvis 07/01/2016. Chronic fibrotic changes are seen in the visualized lung bases. There is diffuse fatty infiltration of the liver. Spleen is normal in size with no gross intrinsic abnormality. Adrenal glands are normal. No definite pancreatic abnormality is seen. Kidneys demonstrate no stone or hydronephrosis. Ureters are not dilated. There is mild atherosclerotic calcification of the abdominal aorta without aneurysm. No adenopathy is seen. There is no free air or free fluid. No bowel thickening is seen. Scattered diverticula are seen of the colon, and there is a large duodenal diverticulum noted. Right ovarian cyst is unchanged, 3.8 cm in diameter, stable since the 2013 CT exam. Pessary is again noted. Urinary bladder is mildly distended and grossly unremarkable. There are degenerative changes of the spine. There is severe compression of the L1 vertebral body, which has progressively worsened compared to the MRI of 08/29/2018. There is again retropulsion of fragments into the spinal canal, as seen on the MRI. There is mild to moderate compression of L3 vertebral body, which is relatively stable compared to the prior MRI. There is a small hiatal hernia. IMPRESSION: Progressive loss of height of L1 vertebral body with severe compression now noted. This has worsened since the prior MRI of 08/29/2018. There is again retropulsion of fragments into the spinal canal, as seen on the prior MRI. Moderate compression of L3 is unchanged. No acute abnormality in the abdomen or pelvis. Scattered diverticula of the colon. No free air or free fluid. No bowel wall thickening. Stable right ovarian cyst. Electronically Signed by David Marrero MD 05/16/2019 02:38 P
--- NOTE | 2019-05-17 08:58 | ED PDOC ---
Post-Departure Follow-Up dr pastrana faxed formal report of ct abd/p for fu Rosie Kelsey MD May 17, 2019 08:58
== END 2019-05-16 13:05 | disposition home or self-care (01) ==
LOC: M ED 09:41
DX: N39.0 Urinary tract infection, site not specified (principal); R07.81 Pleurodynia; I48.91 Unspecified atrial fibrillation; E11.9 Type 2 diabetes mellitus without complications; I10 Essential (primary) hypertension; K52.9 Noninfective gastroenteritis and colitis, unspecified; M51.9 Unspecified thoracic, thoracolumbar and lumbosacral intervertebral disc disorder; Z87.442 Personal history of urinary calculi; Z88.0 Allergy status to penicillin; Z88.2 Allergy status to sulfonamides; Z88.1 Allergy status to other antibiotic agents; Z88.5 Allergy status to narcotic agent; Z91.013 Allergy to seafood; Z79.899 Other long term (current) drug therapy; Z79.01 Long term (current) use of anticoagulants; Z79.4 Long term (current) use of insulin; Z79.52 Long term (current) use of systemic steroids
CPT/HCPCS: 36415; 71101; 74176; 76705; 80047; 80076; 81001; 83690; 85025; 85610; 85730; 87088; 87186; 99284; P9612

== ENCOUNTER → 2020-04-28 | Outpatient (REF) | payer MEDICARE, OTHER ==
[~2020-04-28] MED LIST changes: +ACET650T61 PO; -TYLE650T35 PO
[2020-04-28 17:44] LABS: APPEARANCE, URINE HAZY (CLEAR); BACTERIA, URINE AUTO 1+ (NEGATIVE); BILIRUBIN, URINE AUTO NEGATIVE (NEGATIVE); BLOOD, URINE BLOOD NEGATIVE (NEGATIVE); COLOR, URINE YELLOW (YELLOW); GLUCOSE, URINE (UA) AUTO 3+ mg/dL (NEGATIVE); KETONE, URINE AUTO 1+ mg/dL (NEGATIVE); LEUKOCYTE ESTERASE, URINE AUTO TRACE (NEGATIVE); MUCUS, URINE SMALL (NEGATIVE); NITRITE, URINE AUTO POSITIVE (NEGATIVE); PROTEIN, URINE AUTO NEGATIVE (NEGATIVE); RBC, URINE AUTO 2 /HPF (0-3); SQUAMOUS EPITHELIAL CELL UR AU 5 /HPF (0-6); UROBILINOGEN, URINE AUTO 0.2 mg/dL (0.0-2.0); WBC, URINE AUTO 14 /HPF (0-3)
== END ==
LOC: M SMT 16:55
PROVIDERS: ATTEND Nurse Practitioner Women's Health
DX: N39.0 Urinary tract infection, site not specified (principal)

== ENCOUNTER → 2020-06-22 | Outpatient (REF) | payer MEDICARE, OTHER ==
[2020-06-22 18:49] LABS: APPEARANCE, URINE CLOUDY (CLEAR); BACTERIA, URINE AUTO 2+ (NEGATIVE); BILIRUBIN, URINE AUTO NEGATIVE (NEGATIVE); BLOOD, URINE BLOOD 1+ (NEGATIVE); CALCIUM OXALATE CRYSTALS SMALL; COLOR, URINE YELLOW (YELLOW); GLUCOSE, URINE (UA) AUTO 2+ mg/dL (NEGATIVE); KETONE, URINE AUTO NEGATIVE (NEGATIVE); LEUKOCYTE ESTERASE, URINE AUTO TRACE (NEGATIVE); MUCUS, URINE SMALL (NEGATIVE); NITRITE, URINE AUTO POSITIVE (NEGATIVE); PROTEIN, URINE AUTO NEGATIVE (NEGATIVE); RBC, URINE AUTO 1 /HPF (0-3); SPECIFIC GRAVITY URINE AUTO 1.017 (1.002-1.035); SQUAMOUS EPITHELIAL CELL UR AU 0 /HPF (0-6); UROBILINOGEN, URINE AUTO 0.2 mg/dL (0.0-2.0); WBC, URINE AUTO 4 /HPF (0-3)
== END ==
LOC: M SMT 17:01
PROVIDERS: ATTEND Nurse Practitioner Women's Health
DX: N39.0 Urinary tract infection, site not specified (principal)

== ENCOUNTER → 2020-10-04 | Outpatient (CLI) | payer MEDICARE, OTHER ==
[~2020-10-04] MED LIST changes: +HYDR-3490 PO; -HYDR25TAB PO
== END ==
LOC: M LABSMTC 09:36
PROVIDERS: ATTEND Anesthesiology Pain Medicine
DX: Z01.818 Encounter for other preprocedural examination (principal); Z11.52 Encounter for screening for COVID-19

== ENCOUNTER → 2020-11-27 | Outpatient (REF) | payer MEDICARE, OTHER | LOC: M LAB REF 16:45 | PROVIDERS: ATTEND Internal Medicine Nephrology | DX: N18.32 Chronic kidney disease, stage 3b (principal) ==

== ENCOUNTER → 2021-01-20 | Outpatient (CLI) | payer MEDICARE, OTHER ==
[2021-01-20 08:53] LABS: HEMATOCRIT 46.1 % (36.0-47.0); HEMOGLOBIN 14.7 g/dl (12.0-15.5); MEAN CORPUSCULAR HEMOGLOBIN 31.1 pg (27.0-33.0); MEAN CORPUSCULAR HGB CONC 31.9 g/dl (32.0-36.5); MEAN CORPUSCULAR VOLUME 97.5 fl (80.0-96.0); PLATELET COUNT, AUTOMATED 244 10^3/uL (150-450); RED BLOOD COUNT 4.73 10^6/uL (4.00-5.40); WHITE BLOOD COUNT 11.5 10^3/uL (4.0-10.0)
[2021-01-20 09:12] LABS: HEMOGLOBIN A1c 9.4 %
[2021-01-20 09:22] LABS: ALBUMIN 3.1 GM/DL (3.2-5.2); BILIRUBIN,TOTAL 0.7 MG/DL (0.2-1.0); CALCIUM LEVEL 9.3 MG/DL (8.8-10.2); CHOLESTEROL RISK RATIO 3.225 (<5); GLOMERULAR FILTRATION RATE 56.6 (>32); POTASSIUM SERUM 3.9 MEQ/L (3.5-5.1); TOTAL PROTEIN 6.6 GM/DL (6.4-8.2)
== END ==
LOC: M LAB 07:58
PROVIDERS: ATTEND Nurse Practitioner Family
DX: I10 Essential (primary) hypertension (principal); E78.5 Hyperlipidemia, unspecified

== ENCOUNTER 2021-08-05 10:02 | Inpatient (IN) | payer MEDICARE, OTHER ==
[~2021-08-05] VITALS: Ht 154.9 cm; Wt 59.7 kg
[~2021-08-05 10:02] MED LIST changes: +BENA-8 PO; -BENA20TA8 PO
[2021-08-05 10:47] LABS: BASO # 0.1 10^3/uL (0.0-0.2); BASO % 0.9 % (0.0-1.0); EOS # 0.2 10^3/uL (0.0-0.5); EOS % 1.5 % (0.0-3.0); HEMATOCRIT 44.5 % (36.0-47.0); HEMOGLOBIN 14.7 g/dl (12.0-15.5); LYMPH # 0.5 10^3/uL (1.5-5.0); LYMPH % 4.6 % (24.0-44.0); MEAN CORPUSCULAR HEMOGLOBIN 31.3 pg (27.0-33.0); MEAN CORPUSCULAR VOLUME 94.9 fl (80.0-96.0); MONO # 1.5 10^3/uL (0.0-0.8); MONO % 12.7 % (2.0-8.0); NEUTROPHILS # 9.2 10^3/uL (1.5-8.5); PLATELET COUNT, AUTOMATED 209 10^3/uL (150-450); RED BLOOD COUNT 4.69 10^6/uL (4.00-5.40); WHITE BLOOD COUNT 11.6 10^3/uL (4.0-10.0)
[2021-08-05] MEDS ORDERED: NS 500 ML IV ONE (11:25)
[2021-08-05 11:27] LABS: CK-MB VALUE MASS 1.6 NG/ML (<3.6); MB/CK RELATIVE INDEX 0.79 (< OR =4)
[2021-08-05 11:31] LABS: BILIRUBIN,DIRECT 0.2 MG/DL (0.0-0.2); BILIRUBIN,TOTAL 0.8 MG/DL (0.2-1.0); THYROID STIMULATING HORMONE 1.15 uIU/ML (0.358-3.740); TOTAL PROTEIN 5.9 GM/DL (6.4-8.2)
[2021-08-05] MEDS ORDERED: cefTRIAXone SOD 1 GM in D5W MINI-BAG PLUS 50 ML IV ONE (13:45)
[2021-08-05] MEDS ORDERED: LEVEMIR (INSULIN DETEMIR) 1 UNITS/0.01ML SC SCH ×2 (14:00→21:00)
[2021-08-05] MEDS ORDERED: ELIQ2.5T PO (14:23)
[2021-08-05] MEDS ORDERED: HOME MED LIST COMPLETE! XX SCH (14:25)
[2021-08-05] MEDS ORDERED: MOM 30ML SUSPENSION UDC PO PRN (15:00)
[2021-08-05] MEDS ORDERED: ACETAMINOPHEN TAB 650MG DOSE (2X325MG) PO PRN (15:00)
[2021-08-05] MEDS ORDERED: MAALOX 30 ML SUSP *UDC PO PRN (15:00)
[2021-08-05] MEDS ORDERED: GLUCOSE 4GM CHEW TABLET PO PRN (15:10)
[2021-08-05] MEDS ORDERED: GLUCAGON INJ 1MG VIAL SC PRN (15:10)
[2021-08-05] MEDS ORDERED: DEXTROSE 50% 50 ML SYRINGE IV PRN (15:10)
[2021-08-05 15:33] LABS: RSV AMPLIFICATION NEGATIVE (NEGATIVE)
[2021-08-05] MEDS ORDERED: NS 1,000 ML IV SCH (18:00)
[2021-08-05] MEDS ORDERED: REMDESIVIR 200 MG in NS 250 ML IV ONE (18:00)
[2021-08-05] MEDS: HumaLOG INSULIN (NovoLOG) PER UNIT SC SCH ×2 (19:24→21:00)
[2021-08-05 19:45] VITALS: BP 127/79
[2021-08-05] MEDS ORDERED: SODIUM CHLORIDE 0.9% INJ 10 ML SYR IV ONE (20:00)
[2021-08-05] MEDS: APIXABAN 2.5 MG TAB (ELIQUIS) PO SCH (21:05)
[2021-08-05] MEDS: PROPRANOLOL 20 MG TAB PO SCH (21:12)
[2021-08-05 22:00] VITALS: BP 129/76
[2021-08-06 06:00] VITALS: BP 130/75
[2021-08-06 06:49] LABS: HEMOGLOBIN 14.3 g/dl (12.0-15.5); MEAN CORPUSCULAR HEMOGLOBIN 31.4 pg (27.0-33.0); MEAN CORPUSCULAR HGB CONC 32.5 g/dl (32.0-36.5); MEAN CORPUSCULAR VOLUME 96.7 fl (80.0-96.0); PLATELET COUNT, AUTOMATED 209 10^3/uL (150-450); RED BLOOD COUNT 4.55 10^6/uL (4.00-5.40); WHITE BLOOD COUNT 9.7 10^3/uL (4.0-10.0)
[2021-08-06 07:21] LABS: ALBUMIN 2.6 GM/DL (3.2-5.2); ALT/SGPT 21 U/L (12-78); BILIRUBIN,DIRECT 0.1 MG/DL (0.0-0.2); BILIRUBIN,TOTAL 0.3 MG/DL (0.2-1.0); BLOOD UREA NITROGEN 19 MG/DL (7-18); CALCIUM LEVEL 8.8 MG/DL (8.8-10.2); CARBON DIOXIDE LEVEL 32 MEQ/L (21-32); CHLORIDE LEVEL 107 MEQ/L (98-107); CREATININE FOR GFR 0.91 MG/DL (0.55-1.30); GLOMERULAR FILTRATION RATE > 60.0 (>32); GLUCOSE, FASTING 58 MG/DL (70-100); MAGNESIUM LEVEL 1.8 MG/DL (1.8-2.4); SODIUM LEVEL 144 MEQ/L (136-145)
[2021-08-06] MEDS: HumaLOG INSULIN (NovoLOG) PER UNIT SC SCH ×5 (07:30→20:00)
[2021-08-06] MEDS ORDERED: POTASSIUM CHLORIDE 10MEQ SR TABLET PO ONE (08:15)
[2021-08-06] MEDS ORDERED: cefTRIAXone SOD 1 GM in D5W MINI-BAG PLUS 50 ML IV SCH (09:00)
[2021-08-06] MEDS: BENAZEPRIL 20 MG TAB PO SCH (09:41)
[2021-08-06] MEDS: APIXABAN 2.5 MG TAB (ELIQUIS) PO SCH ×2 (09:41→20:00)
[2021-08-06] MEDS: PROPRANOLOL 20 MG TAB PO SCH ×2 (09:42→20:00)
[2021-08-06] MEDS: predniSONE 10 MG TAB PO SCH (09:43)
[2021-08-06 11:22] VITALS: O2SAT 92
[2021-08-06 14:00] VITALS: BP 127/71
[2021-08-06] MEDS: LEVEMIR (INSULIN DETEMIR) 1 UNITS/0.01ML SC SCH (15:03)
[2021-08-06] MEDS: REMDESIVIR 100 MG in NS 250 ML IV SCH (17:56)
[2021-08-06] MEDS: SODIUM CHLORIDE 0.9% INJ 10 ML SYR IV SCH (19:59)
[2021-08-06 21:33] VITALS: O2SAT 95
[2021-08-06 22:00] VITALS: BP 124/71
[2021-08-07 06:00] VITALS: BP 122/68
[2021-08-07 06:25] LABS: HEMATOCRIT 43.1 % (36.0-47.0); MEAN CORPUSCULAR HEMOGLOBIN 31.6 pg (27.0-33.0); MEAN CORPUSCULAR HGB CONC 32.5 g/dl (32.0-36.5); MEAN CORPUSCULAR VOLUME 97.3 fl (80.0-96.0); PLATELET COUNT, AUTOMATED 198 10^3/uL (150-450); RED BLOOD COUNT 4.43 10^6/uL (4.00-5.40); WHITE BLOOD COUNT 8.2 10^3/uL (4.0-10.0)
[2021-08-07 07:00] LABS: BLOOD UREA NITROGEN 18 MG/DL (7-18); CALCIUM LEVEL 8.6 MG/DL (8.8-10.2); CARBON DIOXIDE LEVEL 29 MEQ/L (21-32); CHLORIDE LEVEL 111 MEQ/L (98-107); CREATININE FOR GFR 0.89 MG/DL (0.55-1.30); GLOMERULAR FILTRATION RATE > 60.0 (>32); GLUCOSE, FASTING 83 MG/DL (70-100); MAGNESIUM LEVEL 1.6 MG/DL (1.8-2.4); POTASSIUM SERUM 3.7 MEQ/L (3.5-5.1); SODIUM LEVEL 147 MEQ/L (136-145)
[2021-08-07] MEDS: HumaLOG INSULIN (NovoLOG) PER UNIT SC SCH ×4 (07:26→20:30)
[2021-08-07] MEDS ORDERED: MAG SULF 1GM/100ML (MAG RUN) 1 GM in IV 1 EA IV ONE (08:00)
[2021-08-07] MEDS: APIXABAN 2.5 MG TAB (ELIQUIS) PO SCH ×2 (08:33→21:11)
[2021-08-07] MEDS: BENAZEPRIL 20 MG TAB PO SCH (08:33)
[2021-08-07] MEDS: predniSONE 10 MG TAB PO SCH (08:33)
[2021-08-07] MEDS: PROPRANOLOL 20 MG TAB PO SCH ×2 (08:39→21:12)
[2021-08-07] MEDS: CEPHALEXIN 500 MG CAP PO SCH ×2 (10:49→21:11)
[2021-08-07 12:16] VITALS: O2SAT 92
[2021-08-07] MEDS: LEVEMIR (INSULIN DETEMIR) 1 UNITS/0.01ML SC SCH (13:15)
[2021-08-07 14:00] VITALS: BP_SYST 122; BP_SYST 175; BP_DIAS 65; BP_DIAS 74
[2021-08-07] MEDS: REMDESIVIR 100 MG in NS 250 ML IV SCH (17:09)
[2021-08-07] MEDS: SODIUM CHLORIDE 0.9% INJ 10 ML SYR IV SCH (18:40)
[2021-08-07] MEDS ORDERED: CEFDINIR 300 MG CAP (OMNICEF) PO SCH (21:00)
[2021-08-07 21:14] VITALS: O2SAT 93
[2021-08-07 21:35] VITALS: BP 130/74
[2021-08-08 06:00] VITALS: BP 129/64
[2021-08-08 06:24] LABS: HEMATOCRIT 43.4 % (36.0-47.0); HEMOGLOBIN 14.1 g/dl (12.0-15.5); MEAN CORPUSCULAR HEMOGLOBIN 31.1 pg (27.0-33.0); MEAN CORPUSCULAR HGB CONC 32.5 g/dl (32.0-36.5); MEAN CORPUSCULAR VOLUME 95.8 fl (80.0-96.0); PLATELET COUNT, AUTOMATED 214 10^3/uL (150-450); RED BLOOD COUNT 4.53 10^6/uL (4.00-5.40); WHITE BLOOD COUNT 7.9 10^3/uL (4.0-10.0)
[2021-08-08 06:45] LABS: CALCIUM LEVEL 8.4 MG/DL (8.8-10.2); CREATININE FOR GFR 1.03 MG/DL (0.55-1.30); GLOMERULAR FILTRATION RATE 54.6 (>32); MAGNESIUM LEVEL 1.8 MG/DL (1.8-2.4); POTASSIUM SERUM 3.9 MEQ/L (3.5-5.1)
[2021-08-08] MEDS: APIXABAN 2.5 MG TAB (ELIQUIS) PO SCH ×2 (08:06→22:50)
[2021-08-08] MEDS: predniSONE 10 MG TAB PO SCH (08:08)
[2021-08-08] MEDS: CEPHALEXIN 500 MG CAP PO SCH ×2 (08:08→22:50)
[2021-08-08] MEDS: BENAZEPRIL 20 MG TAB PO SCH (08:08)
[2021-08-08] MEDS: PROPRANOLOL 20 MG TAB PO SCH ×2 (08:08→22:52)
[2021-08-08] MEDS: HumaLOG INSULIN (NovoLOG) PER UNIT SC SCH ×4 (08:10→22:51)
[2021-08-08] MEDS ORDERED: traMADol 50 MG TAB PO PRN (09:25)
[2021-08-08 11:10] VITALS: O2SAT 90
[2021-08-08] MEDS ORDERED: LEVEMIR (INSULIN DETEMIR) 1 UNITS/0.01ML SC SCH (14:00)
[2021-08-08] MEDS ORDERED: LEVEMIR (INSULIN DETEMIR) 1 UNITS/0.01ML SC ONE (17:00)
[2021-08-08 20:42] VITALS: BP 125/63
[2021-08-08 22:30] VITALS: O2SAT 95
[2021-08-09 06:00] VITALS: BP 128/72
[2021-08-09 06:36] LABS: HEMATOCRIT 44.2 % (36.0-47.0); HEMOGLOBIN 14.1 g/dl (12.0-15.5); MEAN CORPUSCULAR HEMOGLOBIN 30.9 pg (27.0-33.0); MEAN CORPUSCULAR HGB CONC 31.9 g/dl (32.0-36.5); MEAN CORPUSCULAR VOLUME 96.9 fl (80.0-96.0); PLATELET COUNT, AUTOMATED 243 10^3/uL (150-450); RED BLOOD COUNT 4.56 10^6/uL (4.00-5.40); WHITE BLOOD COUNT 9.8 10^3/uL (4.0-10.0)
[2021-08-09 07:09] LABS: CALCIUM LEVEL 8.6 MG/DL (8.8-10.2); CREATININE FOR GFR 0.97 MG/DL (0.55-1.30); GLOMERULAR FILTRATION RATE 58.5 (>32); MAGNESIUM LEVEL 1.9 MG/DL (1.8-2.4); POTASSIUM SERUM 3.4 MEQ/L (3.5-5.1)
[2021-08-09] MEDS: HumaLOG INSULIN (NovoLOG) PER UNIT SC SCH ×4 (07:30→22:10)
[2021-08-09] MEDS ORDERED: POTASSIUM CHLORIDE 10MEQ SR TABLET PO ONE (07:35)
[2021-08-09 09:00] VITALS: O2SAT 95
[2021-08-09] MEDS: BENAZEPRIL 20 MG TAB PO SCH (10:01)
[2021-08-09] MEDS: APIXABAN 2.5 MG TAB (ELIQUIS) PO SCH ×2 (10:02→22:09)
[2021-08-09] MEDS: CEPHALEXIN 500 MG CAP PO SCH ×3 (10:02→22:09)
[2021-08-09] MEDS: predniSONE 10 MG TAB PO SCH (10:02)
[2021-08-09] MEDS: PROPRANOLOL 20 MG TAB PO SCH ×2 (10:14→22:10)
[2021-08-09] MEDS ORDERED: LEVEMIR (INSULIN DETEMIR) 1 UNITS/0.01ML SC SCH ×2 (14:00)
[2021-08-09 22:00] VITALS: O2SAT 94
[2021-08-10 05:00] VITALS: BP 100/60
[2021-08-10] MEDS: HumaLOG INSULIN (NovoLOG) PER UNIT SC SCH (07:30)
[2021-08-10 08:05] LABS: HEMATOCRIT 42.1 % (36.0-47.0); HEMOGLOBIN 13.5 g/dl (12.0-15.5); MEAN CORPUSCULAR HGB CONC 32.1 g/dl (32.0-36.5); MEAN CORPUSCULAR VOLUME 96.8 fl (80.0-96.0); PLATELET COUNT, AUTOMATED 237 10^3/uL (150-450); RED BLOOD COUNT 4.35 10^6/uL (4.00-5.40)
[2021-08-10 08:32] LABS: CALCIUM LEVEL 8.6 MG/DL (8.8-10.2); CREATININE FOR GFR 0.97 MG/DL (0.55-1.30); GLOMERULAR FILTRATION RATE 58.5 (>32); MAGNESIUM LEVEL 1.8 MG/DL (1.8-2.4); POTASSIUM SERUM 3.6 MEQ/L (3.5-5.1)
[2021-08-10] MEDS: BENAZEPRIL 20 MG TAB PO SCH (09:00)
[2021-08-10] MEDS: CEPHALEXIN 500 MG CAP PO SCH (09:39)
[2021-08-10] MEDS: APIXABAN 2.5 MG TAB (ELIQUIS) PO SCH (09:39)
[2021-08-10] MEDS: predniSONE 10 MG TAB PO SCH (09:39)
[2021-08-10 09:42] VITALS: BP 113/61
[2021-08-10] MEDS: PROPRANOLOL 20 MG TAB PO SCH (09:42)
[2021-08-10] MEDS ORDERED: INSUDET SC (09:56)
[2021-08-10] MEDS ORDERED: CEPH500C PO (09:56)
[2021-08-10 10:58] VITALS: O2SAT 91
== END 2021-08-10 11:35 | disposition home health service (06) | DRG 178 ==
LOC: M ED 10:02 → EDBD 10:02 → M ED INP 14:33 → ENRESERV 17:49 → M MSPAV 19:48
PROVIDERS: ADMIT Family Medicine; ATTEND Internal Medicine
PROC: XW033E5 Introduction of Remdesivir Anti-infective into Peripheral Vein, Percutaneous Approach, New Technology Group 5 (ICD-10-PCS; principal; 2021-08-05)
DX: U07.1 COVID-19 (principal); K51.90 Ulcerative colitis, unspecified, without complications; N39.0 Urinary tract infection, site not specified; E87.0 Hyperosmolality and hypernatremia; E11.649 Type 2 diabetes mellitus with hypoglycemia without coma; I10 Essential (primary) hypertension; I48.91 Unspecified atrial fibrillation; R32 Unspecified urinary incontinence; M81.0 Age-related osteoporosis without current pathological fracture; H91.93 Unspecified hearing loss, bilateral; E83.42 Hypomagnesemia; N81.10 Cystocele, unspecified; R53.81 Other malaise; B96.1 Klebsiella pneumoniae [K. pneumoniae] as the cause of diseases classified elsewhere; Z86.718 Personal history of other venous thrombosis and embolism; Z87.442 Personal history of urinary calculi; Z98.41 Cataract extraction status, right eye; Z98.42 Cataract extraction status, left eye; Z79.01 Long term (current) use of anticoagulants; Z79.4 Long term (current) use of insulin; Z79.52 Long term (current) use of systemic steroids; Z79.899 Other long term (current) drug therapy; Z88.1 Allergy status to other antibiotic agents; Z88.2 Allergy status to sulfonamides; Z91.013 Allergy to seafood; Z91.048 Other nonmedicinal substance allergy status

== ENCOUNTER → 2021-09-03 | Outpatient (REF) | payer MEDICARE, OTHER ==
[~2021-09-03] MED LIST changes: +ELIQ2.5T PO
[2021-09-03 13:57] LABS: APPEARANCE, URINE CLOUDY (CLEAR); BACTERIA, URINE AUTO 3+ (NEGATIVE); BILIRUBIN, URINE AUTO NEGATIVE (NEGATIVE); BLOOD, URINE BLOOD 1+ (NEGATIVE); COLOR, URINE YELLOW (YELLOW); GLUCOSE, URINE (UA) AUTO 3+ mg/dL (NEGATIVE); KETONE, URINE AUTO TRACE mg/dL (NEGATIVE); LEUKOCYTE ESTERASE, URINE AUTO 2+ (NEGATIVE); NITRITE, URINE AUTO POSITIVE (NEGATIVE); PROTEIN, URINE AUTO NEGATIVE (NEGATIVE); RBC, URINE AUTO 4 /HPF (0-3); SPECIFIC GRAVITY URINE AUTO 1.018 (1.002-1.035); SQUAMOUS EPITHELIAL CELL UR AU 7 /HPF (0-6); UROBILINOGEN, URINE AUTO 0.2 mg/dL (0.0-2.0); WBC, URINE AUTO 102 /HPF (0-3)
== END ==
LOC: M SMT 13:10
PROVIDERS: ATTEND Nurse Practitioner Women's Health
DX: R30.0 Dysuria (principal)

== ENCOUNTER → 2021-09-06 | Outpatient (REF) | payer MEDICARE, OTHER ==
[~2021-09-06] MED LIST changes: +CEPH250T PO; +SULF400T14 PO
[2021-09-06 14:06] LABS: APPEARANCE, URINE CLOUDY (CLEAR); BACTERIA, URINE AUTO 2+ (NEGATIVE); BILIRUBIN, URINE AUTO NEGATIVE (NEGATIVE); BLOOD, URINE BLOOD 1+ (NEGATIVE); COLOR, URINE YELLOW (YELLOW); GLUCOSE, URINE (UA) AUTO 2+ mg/dL (NEGATIVE); KETONE, URINE AUTO NEGATIVE (NEGATIVE); LEUKOCYTE ESTERASE, URINE AUTO 3+ (NEGATIVE); MUCUS, URINE SMALL (NEGATIVE); NITRITE, URINE AUTO POSITIVE (NEGATIVE); PROTEIN, URINE AUTO 1+ mg/dL (NEGATIVE); RBC, URINE AUTO 14 /HPF (0-3); SPECIFIC GRAVITY URINE AUTO 1.016 (1.002-1.035); SQUAMOUS EPITHELIAL CELL UR AU 1 /HPF (0-6); UROBILINOGEN, URINE AUTO 0.2 mg/dL (0.0-2.0); WBC, URINE AUTO TNTC /HPF (0-3)
== END ==
LOC: M SMT 13:24
PROVIDERS: ATTEND Nurse Practitioner Women's Health
DX: N39.0 Urinary tract infection, site not specified (principal)

== ENCOUNTER 2021-09-18 20:56 | Inpatient (IN) | payer MEDICARE, OTHER ==
[~2021-09-18] VITALS: Ht 154.9 cm; Wt 68.0 kg
[~2021-09-18 20:56] MED LIST changes: -CEPH250T PO; -SULF400T14 PO
[2021-09-18] MEDS: HumaLOG INSULIN (NovoLOG) PER UNIT SC SCH (21:00)
[2021-09-18 21:48] LABS: BASO # 0.1 10^3/uL (0.0-0.2); BASO % 0.7 % (0.0-1.0); EOS # 0.1 10^3/uL (0.0-0.5); EOS % 0.8 % (0.0-3.0); HEMATOCRIT 44.7 % (36.0-47.0); HEMOGLOBIN 14.6 g/dl (12.0-15.5); LYMPH # 0.7 10^3/uL (1.5-5.0); LYMPH % 3.8 % (24.0-44.0); MEAN CORPUSCULAR HEMOGLOBIN 31.9 pg (27.0-33.0); MEAN CORPUSCULAR HGB CONC 32.7 g/dl (32.0-36.5); MEAN CORPUSCULAR VOLUME 97.8 fl (80.0-96.0); MONO # 1.4 10^3/uL (0.0-0.8); MONO % 7.9 % (2.0-8.0); NEUTROPHILS # 14.9 10^3/uL (1.5-8.5); NEUTROPHILS % 85.6 % (36.0-66.0); PLATELET COUNT, AUTOMATED 197 10^3/uL (150-450); RED BLOOD COUNT 4.57 10^6/uL (4.00-5.40); WHITE BLOOD COUNT 17.3 10^3/uL (4.0-10.0)
[2021-09-18] MEDS ORDERED: ACETAMINOPHEN 325 MG TAB PO ONE (21:55)
[2021-09-18] MEDS ORDERED: NS 1,000 ML IV ONE (22:15)
[2021-09-18 22:22] LABS: BILIRUBIN,TOTAL 0.7 MG/DL (0.2-1.0); CALCIUM LEVEL 9.3 MG/DL (8.8-10.2); CREATININE FOR GFR 1.51 MG/DL (0.55-1.30); GLOMERULAR FILTRATION RATE 35.1 (>32); POTASSIUM SERUM 5.1 MEQ/L (3.5-5.1); THYROID STIMULATING HORMONE 2.28 uIU/ML (0.358-3.740); TOTAL PROTEIN 6.3 GM/DL (6.4-8.2)
[2021-09-18] MEDS ORDERED: cefTRIAXone SOD 1 GM in D5W MINI-BAG PLUS 50 ML IV ONE (23:25)
[2021-09-19] VITALS (7 sets, daily range): BP systolic 82–148; BP diastolic 44–91
[2021-09-19] MEDS ORDERED: SULF400T14 PO (00:08)
[2021-09-19] MEDS ORDERED: HOME MED LIST COMPLETE! XX SCH (00:15)
[2021-09-19] MEDS ORDERED: MOM 30ML SUSPENSION UDC PO PRN (00:30)
[2021-09-19] MEDS ORDERED: NS 1,000 ML IV ONE ×2 (00:30→21:40)
[2021-09-19] MEDS ORDERED: GLUCOSE 4GM CHEW TABLET PO PRN (00:30)
[2021-09-19] MEDS: NS 1,000 ML IV SCH ×2 (00:30→09:48)
[2021-09-19] MEDS ORDERED: DEXTROSE 50% 50 ML SYRINGE IV PRN (00:30)
[2021-09-19] MEDS ORDERED: ACETAMINOPHEN TAB 650MG DOSE (2X325MG) PO PRN (00:30)
[2021-09-19] MEDS ORDERED: GLUCAGON INJ 1MG VIAL SC PRN (00:30)
[2021-09-19] MEDS ORDERED: MAALOX 30 ML SUSP *UDC PO PRN (00:30)
[2021-09-19 03:15] LABS: INR 1.28; PROTHROMBIN TIME 16.4 SECONDS (12.7-14.5)
[2021-09-19 03:16] LABS: PARTIAL THROMBOPLASTIN TIME 33.7 SECONDS (25.9-37.0)
[2021-09-19 06:15] LABS: HEMATOCRIT 40.3 % (36.0-47.0); HEMOGLOBIN 12.7 g/dl (12.0-15.5); MEAN CORPUSCULAR HEMOGLOBIN 31.9 pg (27.0-33.0); MEAN CORPUSCULAR HGB CONC 31.5 g/dl (32.0-36.5); MEAN CORPUSCULAR VOLUME 101.3 fl (80.0-96.0); PLATELET COUNT, AUTOMATED 189 10^3/uL (150-450); RED BLOOD COUNT 3.98 10^6/uL (4.00-5.40); WHITE BLOOD COUNT 14.2 10^3/uL (4.0-10.0)
[2021-09-19 06:37] LABS: CALCIUM LEVEL 8.1 MG/DL (8.8-10.2); CREATININE FOR GFR 1.21 MG/DL (0.55-1.30); GLOMERULAR FILTRATION RATE 45.4 (>32); MAGNESIUM LEVEL 1.7 MG/DL (1.8-2.4); POTASSIUM SERUM 4.7 MEQ/L (3.5-5.1)
[2021-09-19 06:43] LABS: MB/CK RELATIVE INDEX 3.7 (< OR =4)
[2021-09-19] MEDS ORDERED: ONDANSETRON 4MG/2ML VIAL IV PRN (08:10)
[2021-09-19] MEDS: PROPRANOLOL 20 MG TAB PO SCH ×2 (09:33→21:00)
[2021-09-19] MEDS: APIXABAN 2.5 MG TAB (ELIQUIS) PO SCH ×2 (09:34→21:45)
[2021-09-19] MEDS: BENAZEPRIL 20 MG TAB PO SCH (09:34)
[2021-09-19] MEDS: predniSONE 10 MG TAB PO SCH (09:34)
[2021-09-19] MEDS: DOCUSATE SODIUM 100MG CAPSULE PO SCH ×2 (09:34→21:00)
[2021-09-19] MEDS: HumaLOG INSULIN (NovoLOG) PER UNIT SC SCH ×4 (09:35→21:00)
[2021-09-19] MEDS: cefTRIAXone SOD 1 GM in D5W MINI-BAG PLUS 50 ML IV SCH (09:47)
[2021-09-19] MEDS: ASPIRIN 81 MG CHEW TABLET PO SCH (12:05)
[2021-09-19] MEDS: LEVEMIR (INSULIN DETEMIR) 1 UNITS/0.01ML SC SCH (14:39)
[2021-09-19 15:30] LABS: CK-MB VALUE MASS 3.3 NG/ML (<3.6); MB/CK RELATIVE INDEX 3.17 (< OR =4)
[2021-09-19 19:40] LABS: CREATININE,RANDOM URINE 86.1 MG/DL; POTASSIUM RANDOM URINE 43.3 MEQ/L; TOTAL PROTEIN,RANDOM URINE 28.1 MG/DL (0.0-12.0)
[2021-09-19 22:41] LABS: CK-MB VALUE MASS 2.9 NG/ML (<3.6); MB/CK RELATIVE INDEX 2.84 (< OR =4)
[2021-09-20 06:00] VITALS: BP 126/71
[2021-09-20 06:29] LABS: HEMOGLOBIN 10.9 g/dl (12.0-15.5); MEAN CORPUSCULAR HEMOGLOBIN 31.3 pg (27.0-33.0); MEAN CORPUSCULAR HGB CONC 32.1 g/dl (32.0-36.5); MEAN CORPUSCULAR VOLUME 97.7 fl (80.0-96.0); PLATELET COUNT, AUTOMATED 173 10^3/uL (150-450); RED BLOOD COUNT 3.48 10^6/uL (4.00-5.40); WHITE BLOOD COUNT 15.1 10^3/uL (4.0-10.0)
[2021-09-20 06:53] LABS: CALCIUM LEVEL 8.3 MG/DL (8.8-10.2); CREATININE FOR GFR 1.09 MG/DL (0.55-1.30); GLOMERULAR FILTRATION RATE 51.2 (>32); MAGNESIUM LEVEL 1.7 MG/DL (1.8-2.4); POTASSIUM SERUM 3.7 MEQ/L (3.5-5.1)
[2021-09-20] MEDS: HumaLOG INSULIN (NovoLOG) PER UNIT SC SCH ×4 (07:30→21:00)
[2021-09-20 09:00] VITALS: BP 126/79
[2021-09-20] MEDS: cefTRIAXone SOD 1 GM in D5W MINI-BAG PLUS 50 ML IV SCH (09:04)
[2021-09-20] MEDS: PROPRANOLOL 20 MG TAB PO SCH ×2 (09:05→21:19)
[2021-09-20] MEDS: ASPIRIN 81 MG CHEW TABLET PO SCH (09:05)
[2021-09-20] MEDS: DOCUSATE SODIUM 100MG CAPSULE PO SCH ×3 (09:05→21:18)
[2021-09-20] MEDS: predniSONE 10 MG TAB PO SCH (09:05)
[2021-09-20] MEDS: BENAZEPRIL 20 MG TAB PO SCH (09:05)
[2021-09-20] MEDS: APIXABAN 2.5 MG TAB (ELIQUIS) PO SCH ×2 (09:05→21:19)
[2021-09-20] MEDS ORDERED: FLUCONAZOLE 100 MG TAB PO ONE (09:30)
[2021-09-20] MEDS: LEVEMIR (INSULIN DETEMIR) 1 UNITS/0.01ML SC SCH (13:25)
[2021-09-20 14:00] VITALS: BP 131/77
[2021-09-20 18:50] VITALS: BP 128/77
[2021-09-20 21:17] VITALS: BP 131/79
[2021-09-21 07:24] LABS: HEMATOCRIT 35.7 % (36.0-47.0); HEMOGLOBIN 11.6 g/dl (12.0-15.5); MEAN CORPUSCULAR HEMOGLOBIN 31.7 pg (27.0-33.0); MEAN CORPUSCULAR HGB CONC 32.5 g/dl (32.0-36.5); MEAN CORPUSCULAR VOLUME 97.5 fl (80.0-96.0); PLATELET COUNT, AUTOMATED 205 10^3/uL (150-450); RED BLOOD COUNT 3.66 10^6/uL (4.00-5.40); WHITE BLOOD COUNT 10.9 10^3/uL (4.0-10.0)
[2021-09-21 07:41] LABS: CALCIUM LEVEL 8.6 MG/DL (8.8-10.2); CREATININE FOR GFR 0.98 MG/DL (0.55-1.30); GLOMERULAR FILTRATION RATE 57.8 (>32); MAGNESIUM LEVEL 1.9 MG/DL (1.8-2.4); POTASSIUM SERUM 3.7 MEQ/L (3.5-5.1)
[2021-09-21] MEDS: HumaLOG INSULIN (NovoLOG) PER UNIT SC SCH ×4 (08:33→20:43)
[2021-09-21] MEDS: cefTRIAXone SOD 1 GM in D5W MINI-BAG PLUS 50 ML IV SCH (08:33)
[2021-09-21] MEDS: ASPIRIN 81 MG CHEW TABLET PO SCH (08:35)
[2021-09-21] MEDS: APIXABAN 2.5 MG TAB (ELIQUIS) PO SCH ×2 (08:36→20:43)
[2021-09-21] MEDS: DOCUSATE SODIUM 100MG CAPSULE PO SCH ×2 (08:36→20:43)
[2021-09-21] MEDS: predniSONE 10 MG TAB PO SCH (08:36)
[2021-09-21] MEDS: BENAZEPRIL 20 MG TAB PO SCH (08:36)
[2021-09-21] MEDS: PROPRANOLOL 20 MG TAB PO SCH ×2 (08:38→20:43)
[2021-09-21 14:00] VITALS: BP 149/85
[2021-09-21] MEDS: LEVEMIR (INSULIN DETEMIR) 1 UNITS/0.01ML SC SCH (14:57)
[2021-09-21 20:40] VITALS: BP 143/86
[2021-09-21 22:00] VITALS: BP 141/86
[2021-09-22 06:00] VITALS: BP 141/86
[2021-09-22 06:10] LABS: HEMATOCRIT 36.5 % (36.0-47.0); HEMOGLOBIN 11.7 g/dl (12.0-15.5); MEAN CORPUSCULAR HEMOGLOBIN 31.1 pg (27.0-33.0); MEAN CORPUSCULAR HGB CONC 32.1 g/dl (32.0-36.5); MEAN CORPUSCULAR VOLUME 97.1 fl (80.0-96.0); PLATELET COUNT, AUTOMATED 238 10^3/uL (150-450); RED BLOOD COUNT 3.76 10^6/uL (4.00-5.40); WHITE BLOOD COUNT 9.7 10^3/uL (4.0-10.0)
[2021-09-22 06:29] LABS: BLOOD UREA NITROGEN 19 MG/DL (7-18); CALCIUM LEVEL 9.2 MG/DL (8.8-10.2); CARBON DIOXIDE LEVEL 26 MEQ/L (21-32); CHLORIDE LEVEL 113 MEQ/L (98-107); CREATININE FOR GFR 0.79 MG/DL (0.55-1.30); GLOMERULAR FILTRATION RATE > 60.0 (>32); GLUCOSE, FASTING 84 MG/DL (70-100); MAGNESIUM LEVEL 1.8 MG/DL (1.8-2.4); POTASSIUM SERUM 3.8 MEQ/L (3.5-5.1); SODIUM LEVEL 145 MEQ/L (136-145)
[2021-09-22] MEDS: HumaLOG INSULIN (NovoLOG) PER UNIT SC SCH ×2 (07:30→12:41)
[2021-09-22] MEDS ORDERED: CEPH250T PO (08:20)
[2021-09-22 09:00] VITALS: BP 106/60
[2021-09-22] MEDS: BENAZEPRIL 20 MG TAB PO SCH (09:00)
[2021-09-22] MEDS: PROPRANOLOL 20 MG TAB PO SCH (09:00)
[2021-09-22] MEDS: DOCUSATE SODIUM 100MG CAPSULE PO SCH ×2 (09:00→09:11)
[2021-09-22] MEDS: ASPIRIN 81 MG CHEW TABLET PO SCH (09:11)
[2021-09-22] MEDS: CEPHALEXIN 250MG CAPSULE PO SCH ×2 (09:11→12:41)
[2021-09-22] MEDS: predniSONE 10 MG TAB PO SCH (09:11)
[2021-09-22] MEDS: APIXABAN 2.5 MG TAB (ELIQUIS) PO SCH (09:11)
== END 2021-09-22 14:48 | disposition home health service (06) | DRG 871 ==
LOC: M ED 20:56 → EDBD 20:56 → M ED INP 09-19 00:26 → ENRESERV 09-19 08:10 → M MSPAV 09-19 08:40
PROVIDERS: ADMIT Family Medicine; ATTEND Internal Medicine
DX: A41.9 Sepsis, unspecified organism (principal); G93.41 Metabolic encephalopathy; I24.8 Other forms of acute ischemic heart disease; I48.20 Chronic atrial fibrillation, unspecified; N39.0 Urinary tract infection, site not specified; R53.1 Weakness; E11.9 Type 2 diabetes mellitus without complications; I10 Essential (primary) hypertension; E78.5 Hyperlipidemia, unspecified; F03.90 Unspecified dementia, unspecified severity, without behavioral disturbance, psychotic disturbance, mood disturbance, and anxiety; Z98.41 Cataract extraction status, right eye; Z98.42 Cataract extraction status, left eye; Z79.01 Long term (current) use of anticoagulants; Z79.899 Other long term (current) drug therapy; Z79.4 Long term (current) use of insulin; Z88.1 Allergy status to other antibiotic agents; Z88.0 Allergy status to penicillin; Z88.2 Allergy status to sulfonamides; Z91.013 Allergy to seafood; Z91.048 Other nonmedicinal substance allergy status

== ENCOUNTER → 2021-11-12 | Outpatient (REF) | payer MEDICARE, OTHER ==
[~2021-11-12] MED LIST changes: +CEPH250T PO; +SULF400T14 PO
[2021-11-12 17:45] LABS: APPEARANCE, URINE HAZY (CLEAR); BACTERIA, URINE AUTO 3+ (NEGATIVE); BILIRUBIN, URINE AUTO NEGATIVE (NEGATIVE); BLOOD, URINE BLOOD NEGATIVE (NEGATIVE); COLOR, URINE YELLOW (YELLOW); GLUCOSE, URINE (UA) AUTO 3+ mg/dL (NEGATIVE); KETONE, URINE AUTO NEGATIVE (NEGATIVE); LEUKOCYTE ESTERASE, URINE AUTO TRACE (NEGATIVE); MUCUS, URINE SMALL (NEGATIVE); NITRITE, URINE AUTO POSITIVE (NEGATIVE); PROTEIN, URINE AUTO NEGATIVE (NEGATIVE); RBC, URINE AUTO 1 /HPF (0-3); SPECIFIC GRAVITY URINE AUTO 1.013 (1.002-1.035); SQUAMOUS EPITHELIAL CELL UR AU 0 /HPF (0-6); UROBILINOGEN, URINE AUTO 0.2 mg/dL (0.0-2.0); WBC, URINE AUTO 20 /HPF (0-3)
== END ==
LOC: M SMT 16:51
PROVIDERS: ATTEND Nurse Practitioner Women's Health
DX: R30.0 Dysuria (principal)

== ENCOUNTER → 2021-12-24 | Outpatient (REF) | payer MEDICARE, OTHER ==
[2021-12-24 17:58] LABS: APPEARANCE, URINE TURBID (CLEAR); BACTERIA, URINE AUTO NEGATIVE (NEGATIVE); BILIRUBIN, URINE AUTO NEGATIVE (NEGATIVE); BLOOD, URINE BLOOD 1+ (NEGATIVE); COLOR, URINE YELLOW (YELLOW); GLUCOSE, URINE (UA) AUTO 3+ mg/dL (NEGATIVE); KETONE, URINE AUTO TRACE mg/dL (NEGATIVE); LEUKOCYTE ESTERASE, URINE AUTO 2+ (NEGATIVE); NITRITE, URINE AUTO NEGATIVE (NEGATIVE); PROTEIN, URINE AUTO 2+ mg/dL (NEGATIVE); RBC, URINE AUTO 0 /HPF (0-3); SPECIFIC GRAVITY URINE AUTO 1.017 (1.002-1.035); SQUAMOUS EPITHELIAL CELL UR AU 0 /HPF (0-6); UROBILINOGEN, URINE AUTO 0.2 mg/dL (0.0-2.0); WBC, URINE AUTO TNTC /HPF (0-3)
== END ==
LOC: M SMT 16:44
PROVIDERS: ATTEND Nurse Practitioner Women's Health
DX: R30.0 Dysuria (principal)

== ENCOUNTER 2022-02-09 13:05 | Inpatient (IN) | payer MEDICARE, OTHER ==
[~2022-02-09] VITALS: Ht 149.9 cm; Wt 63.8 kg
[2022-02-09] MEDS ORDERED: LIDOCAINE 2% 5ML JELLY UROJET TOP ONE (13:25)
[2022-02-09 13:43] LABS: BASO # 0.1 10^3/uL (0.0-0.2); BASO % 0.4 % (0.0-1.0); EOS % 0.1 % (0.0-3.0); HEMOGLOBIN 14.2 g/dl (12.0-15.5); LYMPH # 0.5 10^3/uL (1.5-5.0); LYMPH % 1.9 % (24.0-44.0); MEAN CORPUSCULAR HEMOGLOBIN 30.7 pg (27.0-33.0); MEAN CORPUSCULAR HGB CONC 31.6 g/dl (32.0-36.5); MEAN CORPUSCULAR VOLUME 97.2 fl (80.0-96.0); MONO # 1.3 10^3/uL (0.0-0.8); MONO % 4.7 % (2.0-8.0); NEUTROPHILS # 24.7 10^3/uL (1.5-8.5); NEUTROPHILS % 91.3 % (36.0-66.0); PLATELET COUNT, AUTOMATED 235 10^3/uL (150-450); RED BLOOD COUNT 4.63 10^6/uL (4.00-5.40)
[2022-02-09] MEDS ORDERED: NS 1,780 ML in IV 1 EA IV ONE (13:45)
[2022-02-09 13:55] LABS: INR 1.15; PROTHROMBIN TIME 15.1 SECONDS (12.7-14.5)
[2022-02-09 13:56] LABS: PARTIAL THROMBOPLASTIN TIME 27.6 SECONDS (25.9-37.0)
[2022-02-09] MEDS ORDERED: cefTRIAXone SOD 2 GM in D5W MINI-BAG PLUS 50 ML IV ONE (14:10)
[2022-02-09 14:23] LABS: BILIRUBIN,DIRECT 0.3 MG/DL (0.0-0.2); BILIRUBIN,TOTAL 0.8 MG/DL (0.2-1.0); CALCIUM LEVEL 9.1 MG/DL (8.8-10.2); CREATININE FOR GFR 1.5 MG/DL (0.55-1.30); GLOMERULAR FILTRATION RATE 35.4 (>32); POTASSIUM SERUM 4.3 MEQ/L (3.5-5.1); TOTAL PROTEIN 6.1 GM/DL (6.4-8.2)
[2022-02-09 14:25] LABS: CK-MB VALUE MASS < 1.0 NG/ML (<3.6); CPK CREATINE PHOSPHOKINASE 38 U/L (26-192); MB/CK RELATIVE INDEX 2.63 (< OR =4)
[2022-02-09 15:39] LABS: CK-MB VALUE MASS < 1.0 NG/ML (<3.6); CPK CREATINE PHOSPHOKINASE 38 U/L (26-192); MB/CK RELATIVE INDEX 2.63 (< OR =4)
[2022-02-09] MEDS ORDERED: BENA1TAB24 PO (15:52)
[2022-02-09] MEDS ORDERED: POTA10CA32 PO (15:52)
[2022-02-09] MEDS ORDERED: FURO20TA2 PO (15:52)
[2022-02-09] MEDS ORDERED: NITR100C2 PO (15:52)
[2022-02-09] MEDS ORDERED: LEVE1INJ5 SC (16:47)
[2022-02-09] MEDS ORDERED: HOME MED LIST COMPLETE! XX SCH (16:50)
[2022-02-09] MEDS ORDERED: DEXTROSE 50% 50 ML SYRINGE IV PRN (16:55)
[2022-02-09] MEDS ORDERED: GLUCOSE 4GM CHEW TABLET PO PRN (16:55)
[2022-02-09] MEDS ORDERED: GLUCAGON INJ 1MG VIAL SC PRN (16:55)
[2022-02-09] MEDS: NS 1,000 ML IV SCH (17:09)
[2022-02-09] MEDS: INSULIN LISPRO (NovoLOG) PER UNIT SC SCH ×2 (18:08→21:00)
[2022-02-09 22:45] VITALS: BP 116/70
[2022-02-09] MEDS: APIXABAN 2.5 MG TAB (ELIQUIS) PO SCH (23:13)
[2022-02-10] VITALS: BP 128/86
[2022-02-10] MEDS: NS 1,000 ML IV SCH ×2 (00:02→11:40)
[2022-02-10 04:00] VITALS: BP 133/81
[2022-02-10 05:45] LABS: HEMATOCRIT 41.8 % (36.0-47.0); HEMOGLOBIN 12.9 g/dl (12.0-15.5); MEAN CORPUSCULAR HEMOGLOBIN 29.6 pg (27.0-33.0); MEAN CORPUSCULAR HGB CONC 30.9 g/dl (32.0-36.5); MEAN CORPUSCULAR VOLUME 95.9 fl (80.0-96.0); PLATELET COUNT, AUTOMATED 201 10^3/uL (150-450); RED BLOOD COUNT 4.36 10^6/uL (4.00-5.40); WHITE BLOOD COUNT 14.5 10^3/uL (4.0-10.0)
[2022-02-10 06:18] LABS: CALCIUM LEVEL 8.3 MG/DL (8.8-10.2); CREATININE FOR GFR 0.99 MG/DL (0.55-1.30); GLOMERULAR FILTRATION RATE 57.2 (>32); POTASSIUM SERUM 3.8 MEQ/L (3.5-5.1)
[2022-02-10 08:00] VITALS: BP 135/76
[2022-02-10] MEDS: LEVEMIR (INSULIN DETEMIR) 1 UNITS/0.01ML SC SCH (08:44)
[2022-02-10] MEDS: APIXABAN 2.5 MG TAB (ELIQUIS) PO SCH ×2 (08:44→21:49)
[2022-02-10] MEDS: predniSONE 10 MG TAB PO SCH (08:44)
[2022-02-10] MEDS: INSULIN LISPRO (NovoLOG) PER UNIT SC SCH ×4 (08:45→21:00)
[2022-02-10 11:02] LABS: CHOLESTEROL RISK RATIO 2.47 (<5)
[2022-02-10] MEDS: PROPRANOLOL 20 MG TAB PO SCH ×2 (11:21→21:49)
[2022-02-10 11:37] LABS: HEMOGLOBIN A1c 10.1 %
[2022-02-10 12:00] VITALS: BP 123/67
[2022-02-10] MEDS: cefTRIAXone SOD 1 GM in D5W MINI-BAG PLUS 50 ML IV SCH (14:11)
[2022-02-10 16:00] VITALS: BP 106/71
[2022-02-10 20:00] VITALS: BP 118/79
[2022-02-10] MEDS ORDERED: IPRATROPIUM 0.5MG/ALBUTEROL 2.5MG INH SOL UD 3ML (DUONEB) NEB ONE (22:20)
[2022-02-11] VITALS (8 sets, daily range): BP systolic 120–162; BP diastolic 76–92
[2022-02-11] MEDS ORDERED: ALBUTEROL SULFATE 2.5 MG/0.5 ML INH NEB SOLN NEB PRN
[2022-02-11] MEDS: NS 1,000 ML IV SCH (01:25)
[2022-02-11 06:24] LABS: HEMOGLOBIN 12.8 g/dl (12.0-15.5); MEAN CORPUSCULAR HEMOGLOBIN 31.1 pg (27.0-33.0); MEAN CORPUSCULAR HGB CONC 32.8 g/dl (32.0-36.5); MEAN CORPUSCULAR VOLUME 94.9 fl (80.0-96.0); PLATELET COUNT, AUTOMATED 181 10^3/uL (150-450); RED BLOOD COUNT 4.11 10^6/uL (4.00-5.40); WHITE BLOOD COUNT 13.9 10^3/uL (4.0-10.0)
[2022-02-11 06:52] LABS: BLOOD UREA NITROGEN 22 MG/DL (7-18); CALCIUM LEVEL 8.5 MG/DL (8.8-10.2); CARBON DIOXIDE LEVEL 26 MEQ/L (21-32); CHLORIDE LEVEL 108 MEQ/L (98-107); CREATININE FOR GFR 0.75 MG/DL (0.55-1.30); GLOMERULAR FILTRATION RATE > 60.0 (>32); GLUCOSE, FASTING 95 MG/DL (70-100); POTASSIUM SERUM 3.4 MEQ/L (3.5-5.1); SODIUM LEVEL 140 MEQ/L (136-145)
[2022-02-11] MEDS: INSULIN LISPRO (NovoLOG) PER UNIT SC SCH ×4 (07:30→20:49)
[2022-02-11] MEDS: LEVEMIR (INSULIN DETEMIR) 1 UNITS/0.01ML SC SCH (08:07)
[2022-02-11] MEDS: predniSONE 10 MG TAB PO SCH (08:08)
[2022-02-11] MEDS: PROPRANOLOL 20 MG TAB PO SCH ×2 (08:08→21:04)
[2022-02-11] MEDS: APIXABAN 2.5 MG TAB (ELIQUIS) PO SCH ×2 (08:08→21:04)
[2022-02-11] MEDS ORDERED: POTASSIUM CHLORIDE 10MEQ SR TABLET PO ONE (08:15)
[2022-02-11 08:46] LABS: MAGNESIUM LEVEL 1.5 MG/DL (1.8-2.4)
[2022-02-11] MEDS ORDERED: MAG SULF 1GM/100ML (MAG RUN) 1 GM in IV 1 EA IV ONE (10:55)
[2022-02-11] MEDS: cefTRIAXone SOD 1 GM in D5W MINI-BAG PLUS 50 ML IV SCH (14:32)
[2022-02-11] MEDS: NYSTATIN 100,000 UNITS/GM TOPICAL PWD 15 GM TOP SCH (21:05)
[2022-02-12 06:00] VITALS: BP 138/78
[2022-02-12 07:27] LABS: HEMATOCRIT 38.5 % (36.0-47.0); HEMOGLOBIN 12.3 g/dl (12.0-15.5); MEAN CORPUSCULAR HEMOGLOBIN 30.3 pg (27.0-33.0); MEAN CORPUSCULAR HGB CONC 31.9 g/dl (32.0-36.5); MEAN CORPUSCULAR VOLUME 94.8 fl (80.0-96.0); PLATELET COUNT, AUTOMATED 167 10^3/uL (150-450); RED BLOOD COUNT 4.06 10^6/uL (4.00-5.40); WHITE BLOOD COUNT 10.5 10^3/uL (4.0-10.0)
[2022-02-12 07:50] LABS: ERYTHROCYTE SEDIMENTATION RATE 49 mm/hr (0-30)
[2022-02-12 08:01] LABS: BLOOD UREA NITROGEN 18 MG/DL (7-18); CALCIUM LEVEL 8.4 MG/DL (8.8-10.2); CARBON DIOXIDE LEVEL 26 MEQ/L (21-32); CHLORIDE LEVEL 107 MEQ/L (98-107); CREATININE FOR GFR 0.69 MG/DL (0.55-1.30); GLOMERULAR FILTRATION RATE > 60.0 (>32); GLUCOSE, FASTING 127 MG/DL (70-100); MAGNESIUM LEVEL 1.9 MG/DL (1.8-2.4); POTASSIUM SERUM 4.1 MEQ/L (3.5-5.1); SODIUM LEVEL 138 MEQ/L (136-145)
[2022-02-12] MEDS: LEVEMIR (INSULIN DETEMIR) 1 UNITS/0.01ML SC SCH (08:32)
[2022-02-12] MEDS: INSULIN LISPRO (NovoLOG) PER UNIT SC SCH ×4 (08:32→20:48)
[2022-02-12] MEDS: APIXABAN 2.5 MG TAB (ELIQUIS) PO SCH ×2 (08:33→20:56)
[2022-02-12] MEDS: NYSTATIN 100,000 UNITS/GM TOPICAL PWD 15 GM TOP SCH ×2 (08:33→20:57)
[2022-02-12] MEDS: predniSONE 10 MG TAB PO SCH (08:33)
[2022-02-12] MEDS: PROPRANOLOL 20 MG TAB PO SCH ×2 (08:36→20:57)
[2022-02-12] MEDS: ACETAMINOPHEN TAB 650MG DOSE (2X325MG) PO PRN (08:48)
[2022-02-12 14:00] VITALS: BP 121/79
[2022-02-12] MEDS: cefTRIAXone SOD 1 GM in D5W MINI-BAG PLUS 50 ML IV SCH (15:10)
[2022-02-12 22:00] VITALS: BP 134/90
[2022-02-13 05:23] VITALS: BP 138/92
[2022-02-13 06:06] LABS: HEMATOCRIT 38.9 % (36.0-47.0); HEMOGLOBIN 12.6 g/dl (12.0-15.5); MEAN CORPUSCULAR HEMOGLOBIN 30.6 pg (27.0-33.0); MEAN CORPUSCULAR HGB CONC 32.4 g/dl (32.0-36.5); MEAN CORPUSCULAR VOLUME 94.4 fl (80.0-96.0); PLATELET COUNT, AUTOMATED 188 10^3/uL (150-450); RED BLOOD COUNT 4.12 10^6/uL (4.00-5.40); WHITE BLOOD COUNT 9.4 10^3/uL (4.0-10.0)
[2022-02-13 06:50] LABS: BLOOD UREA NITROGEN 22 MG/DL (7-18); CALCIUM LEVEL 8.5 MG/DL (8.8-10.2); CARBON DIOXIDE LEVEL 28 MEQ/L (21-32); CHLORIDE LEVEL 108 MEQ/L (98-107); CREATININE FOR GFR 0.81 MG/DL (0.55-1.30); GLOMERULAR FILTRATION RATE > 60.0 (>32); GLUCOSE, FASTING 120 MG/DL (70-100); POTASSIUM SERUM 3.8 MEQ/L (3.5-5.1); SODIUM LEVEL 140 MEQ/L (136-145)
[2022-02-13 07:14] LABS: ERYTHROCYTE SEDIMENTATION RATE 48 mm/hr (0-30)
[2022-02-13] MEDS: INSULIN LISPRO (NovoLOG) PER UNIT SC SCH ×4 (08:24→20:38)
[2022-02-13] MEDS: LEVEMIR (INSULIN DETEMIR) 1 UNITS/0.01ML SC SCH (08:25)
[2022-02-13] MEDS: predniSONE 10 MG TAB PO SCH (08:27)
[2022-02-13] MEDS: PROPRANOLOL 20 MG TAB PO SCH ×2 (08:27→20:37)
[2022-02-13] MEDS: NYSTATIN 100,000 UNITS/GM TOPICAL PWD 15 GM TOP SCH ×2 (08:27→20:38)
[2022-02-13] MEDS: APIXABAN 2.5 MG TAB (ELIQUIS) PO SCH ×2 (08:27→20:37)
[2022-02-13] MEDS: ACETAMINOPHEN TAB 650MG DOSE (2X325MG) PO PRN (08:28)
[2022-02-13 10:07] LABS: NT-PRO BNP 7598 PG/ML (<450)
[2022-02-13 14:00] VITALS: BP 134/90
[2022-02-13] MEDS: cefTRIAXone SOD 1 GM in D5W MINI-BAG PLUS 50 ML IV SCH (15:11)
[2022-02-13 20:30] VITALS: BP 144/90
[2022-02-14 06:38] VITALS: BP 150/96
[2022-02-14 07:44] LABS: HEMATOCRIT 43.9 % (36.0-47.0); HEMOGLOBIN 14.1 g/dl (12.0-15.5); MEAN CORPUSCULAR HEMOGLOBIN 30.6 pg (27.0-33.0); MEAN CORPUSCULAR HGB CONC 32.1 g/dl (32.0-36.5); MEAN CORPUSCULAR VOLUME 95.2 fl (80.0-96.0); PLATELET COUNT, AUTOMATED 227 10^3/uL (150-450); RED BLOOD COUNT 4.61 10^6/uL (4.00-5.40); WHITE BLOOD COUNT 12.9 10^3/uL (4.0-10.0)
[2022-02-14 08:18] LABS: BLOOD UREA NITROGEN 14 MG/DL (7-18); CALCIUM LEVEL 8.8 MG/DL (8.8-10.2); CARBON DIOXIDE LEVEL 30 MEQ/L (21-32); CHLORIDE LEVEL 107 MEQ/L (98-107); GLOMERULAR FILTRATION RATE > 60.0 (>32); GLUCOSE, FASTING 60 MG/DL (70-100); SODIUM LEVEL 141 MEQ/L (136-145)
[2022-02-14] MEDS: INSULIN LISPRO (NovoLOG) PER UNIT SC SCH ×4 (08:33→21:00)
[2022-02-14] MEDS: LEVEMIR (INSULIN DETEMIR) 1 UNITS/0.01ML SC SCH (08:39)
[2022-02-14] MEDS: NYSTATIN 100,000 UNITS/GM TOPICAL PWD 15 GM TOP SCH ×2 (08:43→21:50)
[2022-02-14] MEDS: APIXABAN 2.5 MG TAB (ELIQUIS) PO SCH ×2 (08:43→21:49)
[2022-02-14] MEDS: PROPRANOLOL 20 MG TAB PO SCH ×2 (08:43→21:50)
[2022-02-14] MEDS: predniSONE 10 MG TAB PO SCH (08:43)
[2022-02-14] MEDS: CEFDINIR 300 MG CAP (OMNICEF) PO SCH ×2 (08:44→21:50)
[2022-02-15 05:53] VITALS: BP 131/77
[2022-02-15 06:20] LABS: HEMATOCRIT 39.9 % (36.0-47.0); HEMOGLOBIN 12.9 g/dl (12.0-15.5); MEAN CORPUSCULAR HEMOGLOBIN 30.6 pg (27.0-33.0); MEAN CORPUSCULAR HGB CONC 32.3 g/dl (32.0-36.5); MEAN CORPUSCULAR VOLUME 94.8 fl (80.0-96.0); PLATELET COUNT, AUTOMATED 245 10^3/uL (150-450); RED BLOOD COUNT 4.21 10^6/uL (4.00-5.40); WHITE BLOOD COUNT 10.2 10^3/uL (4.0-10.0)
[2022-02-15 06:52] LABS: BLOOD UREA NITROGEN 18 MG/DL (7-18); CALCIUM LEVEL 8.8 MG/DL (8.8-10.2); CARBON DIOXIDE LEVEL 31 MEQ/L (21-32); CHLORIDE LEVEL 107 MEQ/L (98-107); CREATININE FOR GFR 0.73 MG/DL (0.55-1.30); GLOMERULAR FILTRATION RATE > 60.0 (>32); GLUCOSE, FASTING 127 MG/DL (70-100); SODIUM LEVEL 143 MEQ/L (136-145)
[2022-02-15] MEDS: INSULIN LISPRO (NovoLOG) PER UNIT SC SCH ×2 (08:00→13:21)
[2022-02-15] MEDS: CEFDINIR 300 MG CAP (OMNICEF) PO SCH (08:01)
[2022-02-15 08:04] VITALS: BP 131/79
[2022-02-15] MEDS: PROPRANOLOL 20 MG TAB PO SCH (08:04)
[2022-02-15] MEDS: APIXABAN 2.5 MG TAB (ELIQUIS) PO SCH (08:04)
[2022-02-15] MEDS: predniSONE 10 MG TAB PO SCH (08:04)
[2022-02-15] MEDS: LEVEMIR (INSULIN DETEMIR) 1 UNITS/0.01ML SC SCH (08:05)
[2022-02-15] MEDS: NYSTATIN 100,000 UNITS/GM TOPICAL PWD 15 GM TOP SCH (08:05)
[2022-02-15] MEDS ORDERED: INSUDET SC (10:17)
[2022-02-15] MEDS ORDERED: CEFD300CAP PO (10:17)
[2022-02-15] MEDS ORDERED: COVID-19 VAC, BV (MODERNA)/PF 50 MCG/0.5 ML VIAL (EUA) IM.IMMUN ONE (11:00)
== END 2022-02-15 13:35 | DRG 872 ==
LOC: M ED 13:05 → EDBD 13:05 → M ED INP 17:05 → M PCU 22:46 → M MSPAV 02-11 22:15
PROVIDERS: ADMIT Internal Medicine; ATTEND General Practice
DX: A41.9 Sepsis, unspecified organism (principal); I48.20 Chronic atrial fibrillation, unspecified; N39.0 Urinary tract infection, site not specified; N17.9 Acute kidney failure, unspecified; K51.90 Ulcerative colitis, unspecified, without complications; I10 Essential (primary) hypertension; E78.5 Hyperlipidemia, unspecified; E11.65 Type 2 diabetes mellitus with hyperglycemia; Z86.16 Personal history of COVID-19; Z87.440 Personal history of urinary (tract) infections; Z98.41 Cataract extraction status, right eye; Z98.42 Cataract extraction status, left eye; Z79.01 Long term (current) use of anticoagulants; Z79.4 Long term (current) use of insulin; Z79.52 Long term (current) use of systemic steroids; Z79.899 Other long term (current) drug therapy; Z88.0 Allergy status to penicillin; Z88.1 Allergy status to other antibiotic agents; Z88.2 Allergy status to sulfonamides; Z88.8 Allergy status to other drugs, medicaments and biological substances; Z91.013 Allergy to seafood; Z91.048 Other nonmedicinal substance allergy status

== ENCOUNTER → 2022-02-16 | Outpatient (REF) ==
[~2022-02-16] MED LIST changes: +BENA1TAB24 PO; +CEFD300CAP PO; +FURO20TA2 PO; +LEVE1INJ5 SC; +NITR100C2 PO; +POTA10CA32 PO
[2022-02-16 10:59] LABS: HEMATOCRIT 43.1 % (36.0-47.0); HEMOGLOBIN 13.4 g/dl (12.0-15.5); MEAN CORPUSCULAR HEMOGLOBIN 30.3 pg (27.0-33.0); MEAN CORPUSCULAR HGB CONC 31.1 g/dl (32.0-36.5); MEAN CORPUSCULAR VOLUME 97.5 fl (80.0-96.0); PLATELET COUNT, AUTOMATED 281 10^3/uL (150-450); RED BLOOD COUNT 4.42 10^6/uL (4.00-5.40)
[2022-02-16 11:36] LABS: CALCIUM LEVEL 8.7 MG/DL (8.8-10.2); CREATININE FOR GFR 1.15 MG/DL (0.55-1.30); GLOMERULAR FILTRATION RATE 48.1 (>32); POTASSIUM SERUM 3.8 MEQ/L (3.5-5.1)
== END ==
PROVIDERS: ATTEND Physician Assistant
DX: I48.91 Unspecified atrial fibrillation (principal)

== ENCOUNTER → 2022-02-23 | Outpatient (REF) ==
[2022-02-23 12:02] LABS: HEMOGLOBIN 13.8 g/dl (12.0-15.5); MEAN CORPUSCULAR HEMOGLOBIN 31.5 pg (27.0-33.0); MEAN CORPUSCULAR HGB CONC 32.1 g/dl (32.0-36.5); MEAN CORPUSCULAR VOLUME 98.2 fl (80.0-96.0); PLATELET COUNT, AUTOMATED 335 10^3/uL (150-450); RED BLOOD COUNT 4.38 10^6/uL (4.00-5.40); WHITE BLOOD COUNT 15.3 10^3/uL (4.0-10.0)
[2022-02-23 12:56] LABS: CALCIUM LEVEL 9.2 MG/DL (8.8-10.2); CREATININE FOR GFR 1.02 MG/DL (0.55-1.30); GLOMERULAR FILTRATION RATE 55.2 (>32); POTASSIUM SERUM 4.1 MEQ/L (3.5-5.1)
== END ==
PROVIDERS: ATTEND Physician Assistant
DX: I48.91 Unspecified atrial fibrillation (principal)

== ENCOUNTER → 2022-02-25 | Outpatient (REF) | payer MEDICARE, OTHER ==
[2022-02-25 19:27] LABS: CALCIUM LEVEL 9.3 MG/DL (8.8-10.2); CREATININE FOR GFR 1.49 MG/DL (0.55-1.30); GLOMERULAR FILTRATION RATE 35.7 (>32)
[2022-02-25 19:40] LABS: HEMATOCRIT 42.1 % (36.0-47.0); MEAN CORPUSCULAR HEMOGLOBIN 30.6 pg (27.0-33.0); MEAN CORPUSCULAR HGB CONC 30.9 g/dl (32.0-36.5); MEAN CORPUSCULAR VOLUME 99.1 fl (80.0-96.0); PLATELET COUNT, AUTOMATED 316 10^3/uL (150-450); RED BLOOD COUNT 4.25 10^6/uL (4.00-5.40); WHITE BLOOD COUNT 13.3 10^3/uL (4.0-10.0)
[2022-02-25 20:32] LABS: APPEARANCE, URINE MANUAL TURBID (CLEAR); BILIRUBIN, URINE MANUAL NEGATIVE (NEGATIVE); BLOOD URINE MANUAL POSITIVE (NEGATIVE); COLOR, URINE MANUAL YELLOW (YELLOW); GLUCOSE, URINE (UA) MANUAL 4+(1000 MG/DL) mg/dL (NEGATIVE); KETONE, URINE MANUAL 1+ mg/dL (NEGATIVE); LEUKOCYTE ESTERASE, URINE MAN POSITIVE (NEGATIVE); NITRITE, URINE MANUAL NEGATIVE (NEGATIVE); PROTEIN, URINE MANUAL TRACE mg/dL (NEGATIVE); UROBILINOGEN, URINE MANUAL NORMAL (NORMAL)
[2022-02-25 20:53] LABS: WBC, URINE TNTC /hpf (0-3)
[2022-02-25 20:54] LABS: RBC, URINE 0-1 /hpf (0-3)
[2022-02-25 20:55] LABS: BACTERIA, URINE NONE SEEN; HYALINE CAST, URINE NONE SEEN /lpf (0-1); SQUAMOUS EPITHELIAL CELL URINE 0 /hpf (SMALL AMT); YEAST, URINE MOD AMOUNT
== END ==
PROVIDERS: ATTEND Internal Medicine
DX: E11.65 Type 2 diabetes mellitus with hyperglycemia (principal); Z79.899 Other long term (current) drug therapy

== ENCOUNTER → 2022-02-26 | Outpatient (REF) ==
[2022-02-26 14:12] LABS: BLOOD UREA NITROGEN 22 MG/DL (7-18); CARBON DIOXIDE LEVEL 32 mmol/L (20-29); CHLORIDE LEVEL 104 MEQ/L (98-107); GLOMERULAR FILTRATION RATE > 60.0 (>32); GLUCOSE, FASTING 124 MG/DL (70-100); POTASSIUM SERUM 3.8 MEQ/L (3.5-5.1); SODIUM LEVEL 142 MEQ/L (136-145)
[2022-02-26 14:14] LABS: HEMATOCRIT 43.7 % (36.0-47.0); HEMOGLOBIN 13.8 g/dl (12.0-15.5); MEAN CORPUSCULAR HEMOGLOBIN 30.9 pg (27.0-33.0); MEAN CORPUSCULAR HGB CONC 31.6 g/dl (32.0-36.5); MEAN CORPUSCULAR VOLUME 97.8 fl (80.0-96.0); PLATELET COUNT, AUTOMATED 299 10^3/uL (150-450); RED BLOOD COUNT 4.47 10^6/uL (4.00-5.40); WHITE BLOOD COUNT 9.3 10^3/uL (4.0-10.0)
== END ==
PROVIDERS: ATTEND Internal Medicine
DX: I48.91 Unspecified atrial fibrillation (principal)

== ENCOUNTER → 2022-03-23 | Outpatient (REF) | payer MEDICARE, OTHER ==
[2022-03-23 16:41] LABS: APPEARANCE, URINE MANUAL CLOUDY (CLEAR); COLOR, URINE MANUAL DK YELLOW (YELLOW)
[2022-03-23 16:42] LABS: BILIRUBIN, URINE MANUAL NEGATIVE (NEGATIVE); BLOOD URINE MANUAL POSITIVE (NEGATIVE); GLUCOSE, URINE (UA) MANUAL NEGATIVE (NEGATIVE); KETONE, URINE MANUAL NEGATIVE (NEGATIVE); LEUKOCYTE ESTERASE, URINE MAN POSITIVE (NEGATIVE); NITRITE, URINE MANUAL POSITIVE (NEGATIVE); PROTEIN, URINE MANUAL 1+ mg/dL (NEGATIVE); SPECIFIC GRAVITY,URINE MANUAL 1.015 (1.002-1.035); UROBILINOGEN, URINE MANUAL NORMAL (NORMAL)
[2022-03-23 17:57] LABS: WBC, URINE TNTC /hpf (0-3)
[2022-03-23 17:58] LABS: BACTERIA, URINE LARGE AMOUNT; HYALINE CAST, URINE NONE SEEN /lpf (0-1); SQUAMOUS EPITHELIAL CELL URINE NONE SEEN /hpf (SMALL AMT); YEAST, URINE MOD AMOUNT
== END ==
LOC: M SMT 15:09
PROVIDERS: ATTEND Nurse Practitioner Women's Health
DX: R30.0 Dysuria (principal)

== ENCOUNTER → 2022-05-13 | Outpatient (REF) | payer MEDICARE, OTHER ==
[~2022-05-13] MED LIST changes: -POTA10CA32 PO; +POTA10CA33 PO
[2022-05-13 15:16] LABS: APPEARANCE, URINE MANUAL CLOUDY (CLEAR); BILIRUBIN, URINE MANUAL NEGATIVE (NEGATIVE); BLOOD URINE MANUAL POSITIVE (NEGATIVE); COLOR, URINE MANUAL YELLOW (YELLOW); GLUCOSE, URINE (UA) MANUAL NEGATIVE (NEGATIVE); KETONE, URINE MANUAL NEGATIVE (NEGATIVE); LEUKOCYTE ESTERASE, URINE MAN POSITIVE (NEGATIVE); NITRITE, URINE MANUAL POSITIVE (NEGATIVE); PROTEIN, URINE MANUAL TRACE mg/dL (NEGATIVE); SPECIFIC GRAVITY,URINE MANUAL 1.025 (1.002-1.035); UROBILINOGEN, URINE MANUAL NORMAL (NORMAL)
[2022-05-13 16:08] LABS: WBC, URINE TNTC /hpf (0-3)
[2022-05-13 16:09] LABS: BACTERIA, URINE LARGE AMOUNT; CALCIUM OXALATE CRYSTALS,URINE SMALL AMOUNT /hpf; HYALINE CAST, URINE NONE SEEN /lpf (0-1); SQUAMOUS EPITHELIAL CELL URINE NONE SEEN /hpf (SMALL AMT); YEAST, URINE SMALL AMOUNT
[2022-05-13 16:10] LABS: RENAL EPITHELIAL CELLS, URINE SMALL AMOUNT /hpf
== END ==
LOC: M SMT 13:29
PROVIDERS: ATTEND Nurse Practitioner Women's Health
DX: N39.0 Urinary tract infection, site not specified (principal)

== ENCOUNTER 2022-06-22 09:18 | Inpatient (IN) | payer MEDICARE, OTHER ==
[~2022-06-22] VITALS: Ht 154.9 cm; Wt 55.3 kg
[2022-06-22 10:03] LABS: VENOUS BASE EXCESS 6.3 (-2.0-2.0); VENOUS O2 SATURATION 81.6 % (60.0-80.0); VENOUS PARTIAL PRESSURE CO2 49.4 mmHg (38.0-50.0); VENOUS PARTIAL PRESSURE O2 46.6 mmHg (30.0-50.0); VENOUS PH 7.429 UNITS (7.330-7.430); VENOUS STANDARD HCO3 29.7 MEQ/L; VENOUS TOTAL CO2 33.5 MEQ/L (24.0-28.0)
[2022-06-22 10:11] LABS: BASO # 0.1 10^3/uL (0.0-0.2); BASO % 0.6 % (0.0-1.0); EOS # 0.1 10^3/uL (0.0-0.5); HEMATOCRIT 46.4 % (36.0-47.0); HEMOGLOBIN 15.1 g/dl (12.0-15.5); LYMPH # 0.9 10^3/uL (1.5-5.0); LYMPH % 6.4 % (24.0-44.0); MEAN CORPUSCULAR HEMOGLOBIN 31.4 pg (27.0-33.0); MEAN CORPUSCULAR HGB CONC 32.5 g/dl (32.0-36.5); MEAN CORPUSCULAR VOLUME 96.5 fl (80.0-96.0); MONO # 1.1 10^3/uL (0.0-0.8); NEUTROPHILS # 11.2 10^3/uL (1.5-8.5); NEUTROPHILS % 82.9 % (36.0-66.0); PLATELET COUNT, AUTOMATED 256 10^3/uL (150-450); RED BLOOD COUNT 4.81 10^6/uL (4.00-5.40); WHITE BLOOD COUNT 13.5 10^3/uL (4.0-10.0)
[2022-06-22 10:32] LABS: ALBUMIN 2.6 G/DL (3.2-5.2); ALKALINE PHOSPHATASE 60 U/L (46-116); ALT/SGPT 16 U/L (7.0-40); AST/SGOT 21 U/L (<34); BILIRUBIN,DIRECT 0.5 MG/DL (<0.4); BILIRUBIN,TOTAL 1.2 MG/DL (0.3-1.2); BLOOD UREA NITROGEN 26 MG/DL (9-23); CALCIUM LEVEL 8.6 MG/DL (8.3-10.6); CARBON DIOXIDE LEVEL 30 MMOL/L (20-31); CHLORIDE LEVEL 100 MMOL/L (98-107); CREATININE FOR GFR 0.79 MG/DL (0.55-1.30); GLOMERULAR FILTRATION RATE > 60.0 (>32); GLUCOSE, FASTING 179 MG/DL (74-106); SODIUM LEVEL 138 MMOL/L (136-145); TOTAL PROTEIN 5.5 G/DL (5.7-8.2)
[2022-06-22 10:33] LABS: OSMOLALITY SERUM 295 MOSM/KG (280-301)
[2022-06-22 10:35] LABS: THYROID STIMULATING HORMONE 1.917 uIU/ML (0.55-4.78)
[2022-06-22] MEDS ORDERED: ACETAMINOPHEN 500 MG TAB PO ONE (12:50)
[2022-06-22] MEDS ORDERED: NS 1,000 ML IV SCH (12:50)
[2022-06-22] MEDS ORDERED: HYDR-3490 PO (13:30)
[2022-06-22] MEDS ORDERED: LEVE1INJ5 SC (13:30)
[2022-06-22] MEDS ORDERED: NITR100C2 PO (13:30)
[2022-06-22] MEDS ORDERED: HYDR-3713 PO (13:30)
[2022-06-22] MEDS ORDERED: HOME MED LIST COMPLETE! XX SCH (13:35)
[2022-06-22 14:12] LABS: RSV AMPLIFICATION NEGATIVE (NEGATIVE)
[2022-06-22 14:56] VITALS: BP 128/89
[2022-06-22] MEDS ORDERED: SENOKOT S TAB PO PRN (15:25)
[2022-06-22] MEDS ORDERED: MOM 30ML SUSPENSION UDC PO PRN (15:25)
[2022-06-22] MEDS ORDERED: BISACODYL 10MG SUPP PR PRN (15:25)
[2022-06-22] MEDS ORDERED: GLUCAGON INJ 1MG VIAL SC PRN (15:45)
[2022-06-22] MEDS ORDERED: DEXTROSE 50% 50ML SYRINGE IV PRN (15:45)
[2022-06-22] MEDS ORDERED: GLUCOSE 4GM CHEW TABLET PO PRN (15:45)
[2022-06-22 16:34] LABS: ERYTHROCYTE SEDIMENTATION RATE 68 mm/hr (0-30)
[2022-06-22] MEDS: NS 1,000 ML IV SCH (17:03)
[2022-06-22] MEDS: INSULIN LISPRO (NovoLOG) PER UNIT SC SCH ×2 (17:56→20:50)
[2022-06-22] MEDS: LACTOBACILLUS ACIDOPHILUS CAP (BACID) PO SCH (17:56)
[2022-06-22 18:21] LABS: HEMOGLOBIN A1c 7.7 % (4.0-6.0)
[2022-06-22 20:42] VITALS: BP 110/60
[2022-06-22] MEDS: NITROFURANTOIN (MACROBID) 100 MG CAP PO SCH (20:58)
[2022-06-22] MEDS: PROPRANOLOL 20 MG TAB PO SCH (21:02)
[2022-06-22] MEDS: APIXABAN 2.5 MG TAB (ELIQUIS) PO SCH (21:02)
[2022-06-23] MEDS: NS 1,000 ML IV SCH (01:05)
[2022-06-23 05:26] VITALS: BP 134/71
[2022-06-23] MEDS ORDERED: FOSFOMYCIN TROMETHAMINE 3 GM POWDER PACKET (MONUROL) PO ONE (05:55)
[2022-06-23] MEDS ORDERED: BACI1CAP PO (05:59)
[2022-06-23] MEDS ORDERED: BACT800T5 PO (05:59)
[2022-06-23] MEDS ORDERED: SELF1KIT MC (06:03)
[2022-06-23] MEDS ORDERED: NORV2TAB PO (06:03)
[2022-06-23 06:15] LABS: BASO # 0.1 10^3/uL (0.0-0.2); BASO % 0.7 % (0.0-1.0); EOS # 0.2 10^3/uL (0.0-0.5); EOS % 1.2 % (0.0-3.0); HEMATOCRIT 44.4 % (36.0-47.0); HEMOGLOBIN 14.4 g/dl (12.0-15.5); LYMPH # 1.4 10^3/uL (1.5-5.0); LYMPH % 11.1 % (24.0-44.0); MEAN CORPUSCULAR HGB CONC 32.4 g/dl (32.0-36.5); MEAN CORPUSCULAR VOLUME 95.5 fl (80.0-96.0); MONO # 1.5 10^3/uL (0.0-0.8); MONO % 12.5 % (2.0-8.0); NEUTROPHILS % 73.2 % (36.0-66.0); PLATELET COUNT, AUTOMATED 258 10^3/uL (150-450); RED BLOOD COUNT 4.65 10^6/uL (4.00-5.40); WHITE BLOOD COUNT 12.3 10^3/uL (4.0-10.0)
[2022-06-23 07:04] LABS: BLOOD UREA NITROGEN 26 MG/DL (9-23); CALCIUM LEVEL 8.4 MG/DL (8.3-10.6); CARBON DIOXIDE LEVEL 23 MMOL/L (20-31); CHLORIDE LEVEL 104 MMOL/L (98-107); CREATININE FOR GFR 0.79 MG/DL (0.55-1.30); GLOMERULAR FILTRATION RATE > 60.0 (>32); GLUCOSE, FASTING 189 MG/DL (74-106); POTASSIUM SERUM 4.2 MMOL/L (3.5-5.1); SODIUM LEVEL 139 MMOL/L (136-145)
[2022-06-23] MEDS: INSULIN LISPRO (NovoLOG) PER UNIT SC SCH ×4 (09:14→21:44)
[2022-06-23] MEDS: APIXABAN 2.5 MG TAB (ELIQUIS) PO SCH ×2 (09:15→21:39)
[2022-06-23] MEDS: LACTOBACILLUS ACIDOPHILUS CAP (BACID) PO SCH ×2 (09:15→18:11)
[2022-06-23] MEDS: predniSONE 10MG TAB PO SCH (09:15)
[2022-06-23] MEDS: PROPRANOLOL 20 MG TAB PO SCH ×2 (09:16→21:39)
[2022-06-23] MEDS: ACETAMIN PO PRN (09:20)
[2022-06-23 14:00] VITALS: BP 121/61
[2022-06-23 21:05] VITALS: BP 133/76
[2022-06-23] MEDS: NITROFURANTOIN (MACROBID) 100 MG CAP PO SCH (21:34)
[2022-06-24 03:50] VITALS: BP 141/89
[2022-06-24 06:30] LABS: BASO # 0.1 10^3/uL (0.0-0.2); BASO % 0.6 % (0.0-1.0); EOS # 0.2 10^3/uL (0.0-0.5); EOS % 1.4 % (0.0-3.0); HEMATOCRIT 45.1 % (36.0-47.0); HEMOGLOBIN 14.5 g/dl (12.0-15.5); LYMPH # 1.4 10^3/uL (1.5-5.0); LYMPH % 9.9 % (24.0-44.0); MEAN CORPUSCULAR HGB CONC 32.2 g/dl (32.0-36.5); MEAN CORPUSCULAR VOLUME 96.6 fl (80.0-96.0); MONO # 1.2 10^3/uL (0.0-0.8); MONO % 8.8 % (2.0-8.0); NEUTROPHILS # 10.9 10^3/uL (1.5-8.5); NEUTROPHILS % 78.1 % (36.0-66.0); PLATELET COUNT, AUTOMATED 261 10^3/uL (150-450); RED BLOOD COUNT 4.67 10^6/uL (4.00-5.40)
[2022-06-24 06:59] LABS: BLOOD UREA NITROGEN 19 MG/DL (9-23); CALCIUM LEVEL 8.4 MG/DL (8.3-10.6); CARBON DIOXIDE LEVEL 30 MMOL/L (20-31); CHLORIDE LEVEL 105 MMOL/L (98-107); CREATININE FOR GFR 0.75 MG/DL (0.55-1.30); GLOMERULAR FILTRATION RATE > 60.0 (>32); GLUCOSE, FASTING 123 MG/DL (74-106); POTASSIUM SERUM 3.6 MMOL/L (3.5-5.1); SODIUM LEVEL 143 MMOL/L (136-145)
[2022-06-24] MEDS: INSULIN LISPRO (NovoLOG) PER UNIT SC SCH ×4 (07:30→21:20)
[2022-06-24] MEDS: APIXABAN 2.5 MG TAB (ELIQUIS) PO SCH ×2 (08:26→21:15)
[2022-06-24] MEDS: predniSONE 10MG TAB PO SCH (08:26)
[2022-06-24] MEDS: LACTOBACILLUS ACIDOPHILUS CAP (BACID) PO SCH ×2 (08:26→16:48)
[2022-06-24] MEDS: PROPRANOLOL 20 MG TAB PO SCH ×2 (08:26→21:16)
[2022-06-24] MEDS ORDERED: cefTRIAXone SOD 2 GM in D5W MINI-BAG PLUS 50 ML IV ONE (11:00)
[2022-06-24 15:00] VITALS: BP 130/83
[2022-06-24] MEDS: NORCO, ANEXSIA 5/325MG TABLET (HYDROcodone/ACETAMINOPHEN) PO PRN (21:17)
[2022-06-24 21:20] VITALS: BP 131/82
[2022-06-25 05:42] LABS: BASO # 0.1 10^3/uL (0.0-0.2); BASO % 0.6 % (0.0-1.0); EOS # 0.2 10^3/uL (0.0-0.5); EOS % 1.7 % (0.0-3.0); HEMATOCRIT 41.2 % (36.0-47.0); HEMOGLOBIN 13.5 g/dl (12.0-15.5); LYMPH # 1.1 10^3/uL (1.5-5.0); LYMPH % 8.8 % (24.0-44.0); MEAN CORPUSCULAR HEMOGLOBIN 31.6 pg (27.0-33.0); MEAN CORPUSCULAR HGB CONC 32.8 g/dl (32.0-36.5); MEAN CORPUSCULAR VOLUME 96.5 fl (80.0-96.0); MONO # 1.2 10^3/uL (0.0-0.8); MONO % 9.7 % (2.0-8.0); NEUTROPHILS # 9.5 10^3/uL (1.5-8.5); NEUTROPHILS % 78.3 % (36.0-66.0); PLATELET COUNT, AUTOMATED 233 10^3/uL (150-450); RED BLOOD COUNT 4.27 10^6/uL (4.00-5.40); WHITE BLOOD COUNT 12.1 10^3/uL (4.0-10.0)
[2022-06-25 06:04] VITALS: BP 131/81
[2022-06-25 06:10] LABS: BLOOD UREA NITROGEN 19 MG/DL (9-23); CALCIUM LEVEL 8.5 MG/DL (8.3-10.6); CARBON DIOXIDE LEVEL 28 MMOL/L (20-31); CHLORIDE LEVEL 104 MMOL/L (98-107); CREATININE FOR GFR 0.69 MG/DL (0.55-1.30); GLOMERULAR FILTRATION RATE > 60.0 (>32); GLUCOSE, FASTING 175 MG/DL (74-106); POTASSIUM SERUM 3.7 MMOL/L (3.5-5.1); SODIUM LEVEL 141 MMOL/L (136-145)
[2022-06-25] MEDS: INSULIN LISPRO (NovoLOG) PER UNIT SC SCH ×4 (08:10→20:21)
[2022-06-25] MEDS: CEPHALEXIN 250MG CAPSULE PO SCH ×4 (08:10→21:22)
[2022-06-25] MEDS: predniSONE 10MG TAB PO SCH (08:11)
[2022-06-25] MEDS: LACTOBACILLUS ACIDOPHILUS CAP (BACID) PO SCH ×2 (08:11→17:55)
[2022-06-25] MEDS: APIXABAN 2.5 MG TAB (ELIQUIS) PO SCH ×2 (08:11→21:24)
[2022-06-25] MEDS: PROPRANOLOL 20 MG TAB PO SCH ×2 (08:13→21:24)
[2022-06-25] MEDS: NORCO, ANEXSIA 5/325MG TABLET (HYDROcodone/ACETAMINOPHEN) PO PRN (11:58)
[2022-06-25 14:00] VITALS: BP 121/76
[2022-06-25 20:00] VITALS: BP 121/73
[2022-06-26 05:41] LABS: BASO # 0.1 10^3/uL (0.0-0.2); BASO % 0.5 % (0.0-1.0); EOS # 0.2 10^3/uL (0.0-0.5); EOS % 1.8 % (0.0-3.0); HEMATOCRIT 44.6 % (36.0-47.0); HEMOGLOBIN 14.3 g/dl (12.0-15.5); LYMPH # 1.1 10^3/uL (1.5-5.0); LYMPH % 8.5 % (24.0-44.0); MEAN CORPUSCULAR HEMOGLOBIN 31.4 pg (27.0-33.0); MEAN CORPUSCULAR HGB CONC 32.1 g/dl (32.0-36.5); MONO # 1.2 10^3/uL (0.0-0.8); MONO % 9.4 % (2.0-8.0); NEUTROPHILS # 10.2 10^3/uL (1.5-8.5); NEUTROPHILS % 78.6 % (36.0-66.0); PLATELET COUNT, AUTOMATED 236 10^3/uL (150-450); RED BLOOD COUNT 4.55 10^6/uL (4.00-5.40)
[2022-06-26 06:00] VITALS: BP 124/70
[2022-06-26 06:06] LABS: BLOOD UREA NITROGEN 20 MG/DL (9-23); CALCIUM LEVEL 9.1 MG/DL (8.3-10.6); CARBON DIOXIDE LEVEL 28 MMOL/L (20-31); CHLORIDE LEVEL 105 MMOL/L (98-107); CREATININE FOR GFR 0.74 MG/DL (0.55-1.30); GLOMERULAR FILTRATION RATE > 60.0 (>32); GLUCOSE, FASTING 144 MG/DL (74-106); POTASSIUM SERUM 3.6 MMOL/L (3.5-5.1); SODIUM LEVEL 144 MMOL/L (136-145)
[2022-06-26] MEDS: LACTOBACILLUS ACIDOPHILUS CAP (BACID) PO SCH ×2 (08:48→17:53)
[2022-06-26] MEDS: predniSONE 10MG TAB PO SCH (08:48)
[2022-06-26] MEDS: CEPHALEXIN 250MG CAPSULE PO SCH ×4 (08:48→20:29)
[2022-06-26] MEDS: APIXABAN 2.5 MG TAB (ELIQUIS) PO SCH ×2 (08:48→20:29)
[2022-06-26] MEDS: PROPRANOLOL 20 MG TAB PO SCH ×2 (08:49→20:29)
[2022-06-26] MEDS: LEVEMIR (INSULIN DETEMIR) 1 UNITS/0.01ML SC SCH (08:50)
[2022-06-26] MEDS: INSULIN LISPRO (NovoLOG) PER UNIT SC SCH ×3 (08:50→17:30)
[2022-06-26 13:44] VITALS: BP 119/77
[2022-06-26 20:30] VITALS: BP 140/90
[2022-06-26] MEDS ORDERED: HALOPERIDOL 5MG/ML 1ML VIAL IV ONE (23:35)
[2022-06-27 06:06] VITALS: BP 144/78
[2022-06-27 06:06] LABS: BASO # 0.1 10^3/uL (0.0-0.2); BASO % 0.4 % (0.0-1.0); EOS # 0.2 10^3/uL (0.0-0.5); EOS % 1.7 % (0.0-3.0); HEMATOCRIT 44.4 % (36.0-47.0); HEMOGLOBIN 14.5 g/dl (12.0-15.5); LYMPH # 1.2 10^3/uL (1.5-5.0); LYMPH % 8.4 % (24.0-44.0); MEAN CORPUSCULAR HEMOGLOBIN 31.3 pg (27.0-33.0); MEAN CORPUSCULAR HGB CONC 32.7 g/dl (32.0-36.5); MEAN CORPUSCULAR VOLUME 95.9 fl (80.0-96.0); MONO # 1.3 10^3/uL (0.0-0.8); MONO % 8.9 % (2.0-8.0); NEUTROPHILS # 11.2 10^3/uL (1.5-8.5); NEUTROPHILS % 79.4 % (36.0-66.0); PLATELET COUNT, AUTOMATED 246 10^3/uL (150-450); RED BLOOD COUNT 4.63 10^6/uL (4.00-5.40); WHITE BLOOD COUNT 14.1 10^3/uL (4.0-10.0)
[2022-06-27 06:32] LABS: BLOOD UREA NITROGEN 15 MG/DL (9-23); CALCIUM LEVEL 8.6 MG/DL (8.3-10.6); CARBON DIOXIDE LEVEL 29 MMOL/L (20-31); CHLORIDE LEVEL 103 MMOL/L (98-107); CREATININE FOR GFR 0.65 MG/DL (0.55-1.30); GLOMERULAR FILTRATION RATE > 60.0 (>32); GLUCOSE, FASTING 103 MG/DL (74-106); SODIUM LEVEL 142 MMOL/L (136-145)
[2022-06-27] MEDS: INSULIN LISPRO (NovoLOG) PER UNIT SC SCH ×2 (07:24→12:58)
[2022-06-27] MEDS: LEVEMIR (INSULIN DETEMIR) 1 UNITS/0.01ML SC SCH (07:49)
[2022-06-27] MEDS: LACTOBACILLUS ACIDOPHILUS CAP (BACID) PO SCH ×2 (08:15→18:05)
[2022-06-27] MEDS: CEPHALEXIN 250MG CAPSULE PO SCH ×4 (08:15→20:06)
[2022-06-27] MEDS: predniSONE 10MG TAB PO SCH (08:16)
[2022-06-27] MEDS: APIXABAN 2.5 MG TAB (ELIQUIS) PO SCH ×2 (08:16→20:06)
[2022-06-27] MEDS: PROPRANOLOL 20 MG TAB PO SCH ×2 (08:17→20:09)
[2022-06-27 14:00] VITALS: BP 147/92
[2022-06-27] MEDS ORDERED: INSULIN LISPRO (NovoLOG) PER UNIT SC ONE (18:00)
[2022-06-27] MEDS ORDERED: LEVEMIR (INSULIN DETEMIR) 1 UNITS/0.01ML SC ONE (18:00)
[2022-06-27 22:00] VITALS: BP 109/69
[2022-06-28 05:59] LABS: BASO # 0.1 10^3/uL (0.0-0.2); BASO % 0.5 % (0.0-1.0); EOS # 0.2 10^3/uL (0.0-0.5); EOS % 1.6 % (0.0-3.0); HEMATOCRIT 41.8 % (36.0-47.0); HEMOGLOBIN 13.4 g/dl (12.0-15.5); LYMPH # 1.2 10^3/uL (1.5-5.0); LYMPH % 10.4 % (24.0-44.0); MEAN CORPUSCULAR HEMOGLOBIN 30.9 pg (27.0-33.0); MEAN CORPUSCULAR HGB CONC 32.1 g/dl (32.0-36.5); MEAN CORPUSCULAR VOLUME 96.3 fl (80.0-96.0); MONO # 1.1 10^3/uL (0.0-0.8); MONO % 10.2 % (2.0-8.0); NEUTROPHILS # 8.5 10^3/uL (1.5-8.5); PLATELET COUNT, AUTOMATED 258 10^3/uL (150-450); RED BLOOD COUNT 4.34 10^6/uL (4.00-5.40); WHITE BLOOD COUNT 11.2 10^3/uL (4.0-10.0)
[2022-06-28 06:00] VITALS: BP 137/84
[2022-06-28 06:27] LABS: BLOOD UREA NITROGEN 19 MG/DL (9-23); CALCIUM LEVEL 8.7 MG/DL (8.3-10.6); CARBON DIOXIDE LEVEL 30 MMOL/L (20-31); CHLORIDE LEVEL 101 MMOL/L (98-107); CREATININE FOR GFR 0.66 MG/DL (0.55-1.30); GLOMERULAR FILTRATION RATE > 60.0 (>32); GLUCOSE, FASTING 250 MG/DL (74-106); POTASSIUM SERUM 3.8 MMOL/L (3.5-5.1); SODIUM LEVEL 140 MMOL/L (136-145)
[2022-06-28] MEDS: ACETAMIN PO PRN ×2 (06:28→21:19)
[2022-06-28 08:00] VITALS: BP 122/84
[2022-06-28] MEDS: INSULIN LISPRO (NovoLOG) PER UNIT SC SCH ×3 (08:55→17:38)
[2022-06-28] MEDS: LACTOBACILLUS ACIDOPHILUS CAP (BACID) PO SCH ×2 (10:27→17:36)
[2022-06-28] MEDS: CEPHALEXIN 250MG CAPSULE PO SCH ×4 (10:28→21:19)
[2022-06-28] MEDS: predniSONE 10MG TAB PO SCH (10:33)
[2022-06-28] MEDS: PROPRANOLOL 20 MG TAB PO SCH ×2 (10:34→21:19)
[2022-06-28] MEDS: APIXABAN 2.5 MG TAB (ELIQUIS) PO SCH ×2 (10:35→21:19)
[2022-06-28] MEDS: LEVEMIR (INSULIN DETEMIR) 1 UNITS/0.01ML SC SCH (10:36)
[2022-06-28 15:00] VITALS: BP 115/75
[2022-06-28 20:50] VITALS: BP 122/79
[2022-06-29 05:51] LABS: BASO # 0.1 10^3/uL (0.0-0.2); BASO % 0.6 % (0.0-1.0); EOS # 0.2 10^3/uL (0.0-0.5); EOS % 1.7 % (0.0-3.0); HEMATOCRIT 42.7 % (36.0-47.0); HEMOGLOBIN 14.1 g/dl (12.0-15.5); LYMPH # 1.5 10^3/uL (1.5-5.0); LYMPH % 14.1 % (24.0-44.0); MEAN CORPUSCULAR HEMOGLOBIN 31.8 pg (27.0-33.0); MEAN CORPUSCULAR VOLUME 96.2 fl (80.0-96.0); MONO # 1.1 10^3/uL (0.0-0.8); NEUTROPHILS # 7.9 10^3/uL (1.5-8.5); NEUTROPHILS % 72.7 % (36.0-66.0); PLATELET COUNT, AUTOMATED 260 10^3/uL (150-450); RED BLOOD COUNT 4.44 10^6/uL (4.00-5.40); WHITE BLOOD COUNT 10.9 10^3/uL (4.0-10.0)
[2022-06-29 06:00] VITALS: BP 144/87
[2022-06-29 06:30] LABS: BLOOD UREA NITROGEN 19 MG/DL (9-23); CALCIUM LEVEL 8.2 MG/DL (8.3-10.6); CARBON DIOXIDE LEVEL 30 MMOL/L (20-31); CHLORIDE LEVEL 104 MMOL/L (98-107); CREATININE FOR GFR 0.68 MG/DL (0.55-1.30); GLOMERULAR FILTRATION RATE > 60.0 (>32); GLUCOSE, FASTING 97 MG/DL (74-106); POTASSIUM SERUM 3.5 MMOL/L (3.5-5.1); SODIUM LEVEL 143 MMOL/L (136-145)
[2022-06-29] MEDS: INSULIN LISPRO (NovoLOG) PER UNIT SC SCH (07:20)
[2022-06-29] MEDS ORDERED: LEVE1INJ5 SC (07:34)
[2022-06-29] MEDS: LACTOBACILLUS ACIDOPHILUS CAP (BACID) PO SCH (08:03)
[2022-06-29 08:04] VITALS: BP 142/87
[2022-06-29] MEDS: APIXABAN 2.5 MG TAB (ELIQUIS) PO SCH (08:04)
[2022-06-29] MEDS: PROPRANOLOL 20 MG TAB PO SCH (08:04)
[2022-06-29] MEDS: predniSONE 10MG TAB PO SCH (08:04)
[2022-06-29] MEDS: LEVEMIR (INSULIN DETEMIR) 1 UNITS/0.01ML SC SCH (08:04)
[2022-06-29] MEDS ORDERED: INSULIN LISPRO (NovoLOG) PER UNIT SC SCH (12:00)
== END 2022-06-29 09:45 | DRG 690 ==
LOC: EDBD 09:18 → M ED 09:18 → M ED INP 09:19 → EDBEDREQ 13:30 → ENRESERV 14:10 → M MSPAV 14:46 → OBSVTOIN 06-24 09:43
PROVIDERS: ADMIT General Practice; ATTEND Internal Medicine Nephrology
DX: N39.0 Urinary tract infection, site not specified (principal); K51.90 Ulcerative colitis, unspecified, without complications; I48.20 Chronic atrial fibrillation, unspecified; F03.90 Unspecified dementia, unspecified severity, without behavioral disturbance, psychotic disturbance, mood disturbance, and anxiety; I12.9 Hypertensive chronic kidney disease with stage 1 through stage 4 chronic kidney disease, or unspecified chronic kidney disease; M81.0 Age-related osteoporosis without current pathological fracture; N18.30 Chronic kidney disease, stage 3 unspecified; E11.22 Type 2 diabetes mellitus with diabetic chronic kidney disease; H91.93 Unspecified hearing loss, bilateral; M54.2 Cervicalgia; M25.511 Pain in right shoulder; M25.521 Pain in right elbow; R53.81 Other malaise; R41.0 Disorientation, unspecified; E78.5 Hyperlipidemia, unspecified; Z98.41 Cataract extraction status, right eye; Z98.42 Cataract extraction status, left eye; Z86.16 Personal history of COVID-19; Z79.01 Long term (current) use of anticoagulants; Z86.718 Personal history of other venous thrombosis and embolism; Z79.52 Long term (current) use of systemic steroids; Z79.4 Long term (current) use of insulin; Z88.0 Allergy status to penicillin; Z88.1 Allergy status to other antibiotic agents; Z88.2 Allergy status to sulfonamides; Z88.8 Allergy status to other drugs, medicaments and biological substances; Z91.013 Allergy to seafood; Z91.048 Other nonmedicinal substance allergy status

== ENCOUNTER → 2022-07-06 | Outpatient (REF) ==
[~2022-07-06] MED LIST changes: +BACI1CAP PO; +BACT800T5 PO; +NORV2TAB PO; +SELF1KIT MC
[2022-07-06 11:07] LABS: HEMATOCRIT 42.2 % (36.0-47.0); HEMOGLOBIN 13.6 g/dl (12.0-15.5); MEAN CORPUSCULAR HEMOGLOBIN 31.5 pg (27.0-33.0); MEAN CORPUSCULAR HGB CONC 32.2 g/dl (32.0-36.5); MEAN CORPUSCULAR VOLUME 97.7 fl (80.0-96.0); PLATELET COUNT, AUTOMATED 323 10^3/uL (150-450); RED BLOOD COUNT 4.32 10^6/uL (4.00-5.40); WHITE BLOOD COUNT 16.3 10^3/uL (4.0-10.0)
[2022-07-06 11:33] LABS: BLOOD UREA NITROGEN 21 MG/DL (9-23); CALCIUM LEVEL 8.7 MG/DL (8.3-10.6); CARBON DIOXIDE LEVEL 27 MMOL/L (20-31); CHLORIDE LEVEL 105 MMOL/L (98-107); CREATININE FOR GFR 0.82 MG/DL (0.55-1.30); GLOMERULAR FILTRATION RATE > 60.0 (>32); GLUCOSE, FASTING 151 MG/DL (74-106); SODIUM LEVEL 140 MMOL/L (136-145)
== END ==
PROVIDERS: ATTEND Internal Medicine
DX: I48.91 Unspecified atrial fibrillation (principal); E11.9 Type 2 diabetes mellitus without complications

== ENCOUNTER → 2022-07-07 | Outpatient (REF) ==
[2022-07-07 11:47] LABS: HEMATOCRIT 45.3 % (36.0-47.0); HEMOGLOBIN 14.4 g/dl (12.0-15.5); MEAN CORPUSCULAR HEMOGLOBIN 31.4 pg (27.0-33.0); MEAN CORPUSCULAR HGB CONC 31.8 g/dl (32.0-36.5); MEAN CORPUSCULAR VOLUME 98.9 fl (80.0-96.0); PLATELET COUNT, AUTOMATED 322 10^3/uL (150-450); RED BLOOD COUNT 4.58 10^6/uL (4.00-5.40); WHITE BLOOD COUNT 11.7 10^3/uL (4.0-10.0)
== END ==
PROVIDERS: ATTEND Internal Medicine
DX: D72.829 Elevated white blood cell count, unspecified (principal)

== ENCOUNTER → 2022-07-13 | Outpatient (REF) ==
[2022-07-13 08:35] LABS: HEMATOCRIT 44.8 % (36.0-47.0); HEMOGLOBIN 14.2 g/dl (12.0-15.5); MEAN CORPUSCULAR HEMOGLOBIN 31.1 pg (27.0-33.0); MEAN CORPUSCULAR HGB CONC 31.7 g/dl (32.0-36.5); MEAN CORPUSCULAR VOLUME 98.2 fl (80.0-96.0); PLATELET COUNT, AUTOMATED 285 10^3/uL (150-450); RED BLOOD COUNT 4.56 10^6/uL (4.00-5.40); WHITE BLOOD COUNT 9.1 10^3/uL (4.0-10.0)
[2022-07-13 09:18] LABS: BLOOD UREA NITROGEN 15 MG/DL (9-23); CALCIUM LEVEL 8.7 MG/DL (8.3-10.6); CARBON DIOXIDE LEVEL 31 MMOL/L (20-31); CHLORIDE LEVEL 107 MMOL/L (98-107); CREATININE FOR GFR 0.82 MG/DL (0.55-1.30); GLOMERULAR FILTRATION RATE > 60.0 (>32); GLUCOSE, FASTING 80 MG/DL (74-106); POTASSIUM SERUM 3.8 MMOL/L (3.5-5.1); SODIUM LEVEL 145 MMOL/L (136-145)
== END ==
PROVIDERS: ATTEND Internal Medicine
DX: Z01.89 Encounter for other specified special examinations (principal)

== ENCOUNTER → 2022-07-15 | Outpatient (REF) | payer MEDICARE, OTHER | PROVIDERS: ATTEND Internal Medicine | DX: I51.7 Cardiomegaly (principal); R91.8 Other nonspecific abnormal finding of lung field ==

== ENCOUNTER → 2022-07-20 | Outpatient (REF) ==
[~2022-07-20] MED LIST changes: +INSU100I6 SC; -LEVE1INJ5 SC
[2022-07-20 13:18] LABS: BLOOD UREA NITROGEN 18 MG/DL (9-23); CARBON DIOXIDE LEVEL 30 MMOL/L (20-31); CHLORIDE LEVEL 104 MMOL/L (98-107); CREATININE FOR GFR 0.75 MG/DL (0.55-1.30); GLOMERULAR FILTRATION RATE > 60.0 (>32); GLUCOSE, FASTING 165 MG/DL (74-106); POTASSIUM SERUM 4.1 MMOL/L (3.5-5.1); SODIUM LEVEL 141 MMOL/L (136-145)
== END ==
PROVIDERS: ATTEND Internal Medicine
DX: E11.9 Type 2 diabetes mellitus without complications (principal)

== ENCOUNTER → 2022-07-27 | Outpatient (REF) ==
[2022-07-27 11:11] LABS: BLOOD UREA NITROGEN 20 MG/DL (9-23); CARBON DIOXIDE LEVEL 31 MMOL/L (20-31); CHLORIDE LEVEL 102 MMOL/L (98-107); CREATININE FOR GFR 0.75 MG/DL (0.55-1.30); GLOMERULAR FILTRATION RATE > 60.0 (>32); GLUCOSE, FASTING 116 MG/DL (74-106); POTASSIUM SERUM 3.9 MMOL/L (3.5-5.1); SODIUM LEVEL 143 MMOL/L (136-145)
== END ==
PROVIDERS: ATTEND Internal Medicine
DX: E11.9 Type 2 diabetes mellitus without complications (principal)

== ENCOUNTER → 2022-08-10 | Outpatient (REF) ==
[2022-08-10 11:13] LABS: HEMATOCRIT 45.5 % (36.0-47.0); HEMOGLOBIN 14.5 g/dl (12.0-15.5); MEAN CORPUSCULAR HEMOGLOBIN 31.5 pg (27.0-33.0); MEAN CORPUSCULAR HGB CONC 31.9 g/dl (32.0-36.5); MEAN CORPUSCULAR VOLUME 98.9 fl (80.0-96.0); PLATELET COUNT, AUTOMATED 270 10^3/uL (150-450); WHITE BLOOD COUNT 12.3 10^3/uL (4.0-10.0)
[2022-08-10 11:49] LABS: BLOOD UREA NITROGEN 22 MG/DL (9-23); CALCIUM LEVEL 8.8 MG/DL (8.3-10.6); CARBON DIOXIDE LEVEL 29 MMOL/L (20-31); CHLORIDE LEVEL 104 MMOL/L (98-107); CREATININE FOR GFR 0.75 MG/DL (0.55-1.30); GLOMERULAR FILTRATION RATE > 60.0 (>32); GLUCOSE, FASTING 146 MG/DL (74-106); POTASSIUM SERUM 3.8 MMOL/L (3.5-5.1); SODIUM LEVEL 143 MMOL/L (136-145)
== END ==
PROVIDERS: ATTEND Internal Medicine
DX: I48.91 Unspecified atrial fibrillation (principal)

== ENCOUNTER → 2022-08-15 | Outpatient (REF) | payer MEDICARE, OTHER | PROVIDERS: ATTEND Internal Medicine | DX: M25.511 Pain in right shoulder (principal) ==

== ENCOUNTER → 2022-10-04 | Outpatient (CLI) | payer MEDICARE, OTHER | LOC: M RAD 13:26 | PROVIDERS: ATTEND Internal Medicine | DX: R52 Pain, unspecified (principal) ==

== ENCOUNTER → 2022-10-05 | Outpatient (REF) | PROVIDERS: ATTEND Internal Medicine | DX: E11.9 Type 2 diabetes mellitus without complications (principal) ==

== ENCOUNTER → 2022-11-21 | Outpatient (REF) ==
[~2022-11-21] MED LIST changes: -K-TA10TA2 PO; +POTA-165 PO; -POTA10CA33 PO; +POTA10CA60 PO
== END ==
PROVIDERS: ATTEND Internal Medicine
DX: N39.0 Urinary tract infection, site not specified (principal)

== ENCOUNTER → 2022-12-05 | Outpatient (REF) ==
[2022-12-05 09:23] LABS: HEMATOCRIT 49.5 % (36.0-47.0); HEMOGLOBIN 15.7 g/dl (12.0-15.5); MEAN CORPUSCULAR HEMOGLOBIN 31.2 pg (27.0-33.0); MEAN CORPUSCULAR HGB CONC 31.7 g/dl (32.0-36.5); MEAN CORPUSCULAR VOLUME 98.2 fl (80.0-96.0); PLATELET COUNT, AUTOMATED 272 10^3/uL (150-450); RED BLOOD COUNT 5.04 10^6/uL (4.00-5.40); WHITE BLOOD COUNT 13.5 10^3/uL (4.0-10.0)
[2022-12-05 09:51] LABS: BLOOD UREA NITROGEN 18 MG/DL (9-23); CALCIUM LEVEL 9.4 MG/DL (8.3-10.6); CARBON DIOXIDE LEVEL 26 MMOL/L (20-31); CHLORIDE LEVEL 98 MMOL/L (98-107); CREATININE FOR GFR 0.67 MG/DL (0.55-1.30); GLOMERULAR FILTRATION RATE > 60.0 (>32); GLUCOSE, FASTING 270 MG/DL (74-106); POTASSIUM SERUM 4.6 MMOL/L (3.5-5.1); SODIUM LEVEL 138 MMOL/L (136-145)
== END ==
PROVIDERS: ATTEND Internal Medicine
DX: I48.91 Unspecified atrial fibrillation (principal)